=== PATIENT | female | born 1970 | race Caucasian/White ===

== ENCOUNTER → 2017-07-26 18:26 | Outpatient (CLI) | payer OTHER, SELFPAY ==
[2017-07-26 19:48] LABS: Erythrocyte Sedimentation Rate 26 mm/hr (0-20)
== END ==
PROVIDERS: PCP Nurse Practitioner Family; Visit Provider Nurse Practitioner Family
DX: E78.2 Mixed hyperlipidemia (principal); M25.50 Pain in unspecified joint; R53.83 Other fatigue
CPT/HCPCS: 36415; 82652; 85651

== ENCOUNTER → 2017-08-05 13:33 | Outpatient (CLI) | payer OTHER, SELFPAY ==
--- NOTE | 2017-08-05 13:37 | MR_ITS ---
MR lumbar spine wo con, MR 3-d myelogram/MRCP HISTORY: Low back pain. Intermittent Bilateral Leg pain, numbness, and tingling. ITS.REASON: LOW BACK PAIN ORDERING PHYSICIAN: Eleni Smyth PATIENT AGE: 47 years Comparison: None TECHNIQUE: Standard multiplanar multiecho sequences are performed without contrast. 3-D MIP and myelographic images are also rendered and reviewed FINDINGS: There is normal alignment. The spinal cord ends at the L1-L2 level. L1-L2 and L2-L3 have an unremarkable appearance. L3-L4: Mild decrease in the disc space and minimal disc desiccation indicating mild degenerative disc disease with mild facet hypertrophic change. L4-L5: Degenerative disc disease with bulging disc along with facet and ligamentum flavum hypertrophy with mild bilateral foraminal narrowing. Type II endplate changes. The bulging disc does abut the L5 nerve roots anteriorly without nerve root compression or displacement. L5-S1: Mild degenerative disc disease with minimal bulging disc and mild facet hypertrophy. No canal stenosis or disc herniation. IMPRESSION: 1. Mild lumbar spondylosis with degenerative disc disease as detailed above. Please see above for detailed description at each level. 2. Degenerative disc disease L4-L5 with bulging disc along with facet and ligamentum flavum hypertrophy with mild bilateral foraminal narrowing. Type II endplate changes. The bulging disc does abut the L5 nerve roots anteriorly without nerve root compression or displacement 3. No canal stenosis or disc herniation evident
== END ==
PROVIDERS: PCP Nurse Practitioner Family; Visit Provider Nurse Practitioner Family
DX: M54.16 Radiculopathy, lumbar region (principal); M54.31 Sciatica, right side
CPT/HCPCS: 72148; 76376

== ENCOUNTER → 2017-12-14 20:57 | Outpatient (CLI) | payer OTHER, SELFPAY ==
[2017-12-14 23:08] VITALS: BMI 36.6
== END ==
PROVIDERS: Visit Provider Obstetrics & Gynecology
DX: J32.8 Other chronic sinusitis (principal)
CPT/HCPCS: 96372

== ENCOUNTER → 2018-08-11 18:39 | Outpatient (CLI) | payer OTHER, SELFPAY ==
[2018-08-12 15:50] LABS: Hemoglobin A1C 5.3 % (0.0-7.0)
[2018-08-13 20:48] LABS: Vitamin D 25 Hydroxy 17.8 ng/mL (30.0-100.0)
== END ==
PROVIDERS: Nurse Practitioner Family; PCP Internal Medicine Adolescent Medicine; Visit Provider Nurse Practitioner Obstetrics & Gynecology
DX: E78.2 Mixed hyperlipidemia (principal); E55.9 Vitamin D deficiency, unspecified
CPT/HCPCS: 82652; 83036

== ENCOUNTER 2019-07-09 15:10 | Emergency (ER) | payer OTHER, SELFPAY ==
[2019-07-09 15:29] VITALS: BP 152/99; PULSE 85; RESP 19; TEMP 36.8; O2SAT 98; BMI 38.6
--- NOTE | 2019-07-09 15:45 | HMH.EDUTC ---
[facility] [place] Clinical Impression: UTI (urinary tract infection) Qualifiers: Urinary tract infection type: site unspecified Hematuria presence: with hematuria Qualified Code(s): N39.0 - Urinary tract infection, site not specified; R31.9 - Hematuria, unspecified Disposition: Home, Self-Care Condition on Discharge: Good Instructions: Urinary Tract Infection, DI for Urinary Tract Infection (UTI), Trimethoprim/Sulfamethoxazole (Alternative Therapy), Phenazopyridine Additional Instructions: *Increase fluids. Water not Soda or Tea *Start antibiotic immediately and be sure to take as ordered for the FULL length of time although you should start to see improvement over the next 48 hours Be SURE to follow up anytime for new or worsening symptoms with your family doctor. AND in 48 hours for urine culture results with your family doctor, if you do not have a doctor then you may call back to the [facility] for urine culture results and further treatment. We do recommend that you choose and establish care with a Primary Care Physician. AND follow up with them in 10-14 days to repeat UA to ensure infection is resolved and blood no longer present *Be sure to let your PCP know that we sent urine cultures from the [facility] so they can follow up to ensure that you area the on the correct antibiotic Call your doctor office and make appointment for 48 hours (2 days from today) to follow up and get the results of your urine culture and further treatment Follow up in the next 48 hours for urine culture results Return if needed Straight to ER if any life threatening symptoms Continue taking Bactrim as prescribed Prescriptions: Phenazopyridine HCl [Pyridium 200mg Tablet] 200 pow PO TID #6 tab Transmission Status: Pending to [facility] Pharmacy # [id number] Referrals: Jg Staples MD [Primary Care Provider] - As needed Medical Decision Making - Donnell Inquiry Pt receiving controlled substance: No Donnell was queried for this patient: No Vital Signs: 07/09/19 15:29 Temperature 98.2 F Temperature Source Oral Pulse Rate [Right Brachial] 85 Respiratory Rate 19 Blood Pressure [Right Arm] 152/99 H Blood Pressure Mean [Right Arm] 116 Blood Pressure Source [Right Arm] Automatic Cuff Blood Pressure Position [Right Arm] Sitting 02 Sat by Pulse Oximetry 98 Oxygen Delivery Method Room Air - Lab Data Lab results reviewed: Yes: I reviewed the patient's lab results. Orders (Tests/Meds): ORDERS Category Date Time Status Urine Culture Stat Micro 07/09/19 15:37 Ordered [facility] [place] - General Stated complaint: Posible UTI Time Seen by Provider: 07/09/19 15:30 Mode of Arrival: Ambulatory Source of Information: Patient Limitations: No Limitations Description of Symptoms (Recalled from Triage Doc. by RN): PT STATES SHE HAS HAD FREQUENT URINATION AND PAIN FOR THE LAST 3 DAYS AND STATES SHE HAS BEEN ON BACTRIM FOR 2 DAYS BUT IS NOT GETTING ANY BETTER HEENT Symptoms (Recalled from RN notes): No Resp Symptoms (Recalled from RN notes): No Skin Symptoms (Recalled from RN notes): No MS Symptoms (Recalled from RN notes): No Functional Status (Recalled from RN notes): WNL - History of Present Illness Provider Complaint: Patient states that she has had frequent UTI in the past States that she started feeling like she was getting a UTI on and was started on Bactrim States that today she is having more burning with urination and feeling of irritation and feeling of urgency and freqency States that she was worried it was getting worse so she came in to get checked - Related Data Previous Rx's Medication Instructions Recorded Phenazopyridine HCl [Pyridium 200 pow PO TID #6 tab 07/09/19 200mg Tablet] Allergies Allergy/AdvReac Type Severity Reaction Status Date / Time meperidine [From Demerol] Allergy Severe SEVERE Unverified 12/15/17 08:36 HIVES - Worker's Comp Is this a Worker's Comp case?: No [facility] History - Hepatitis A Screen
[2019-07-09 16:03] VITALS: BP 152/99; PULSE 85; RESP 19; TEMP 36.8; O2SAT 98
[2019-07-09 16:08] LABS: Apearance,Urine Clear (Clear); Blood, Urine 3+ (Negative); Color,Urine Yellow (Yellow); Glucose,Urine (UA) Negative (Negative); Ketones,Urine Negative (Negative); Protein,Urine 1+ (Negative)
[2019-07-09 16:09] LABS: Bilirubin,Urine Negative (Negative); UTC Leukocyte Esterase,Urine Trace (Negative); UTC Nitrate,Urine Negative (Negative); Urobilinogen,Urine 0.2 EU/dl (0.2)
== END 2019-07-09 16:06 | disposition home or self-care (01) ==
PROVIDERS: Emergency Provider Nurse Practitioner; PCP Internal Medicine Adolescent Medicine
DX: N30.00 Acute cystitis without hematuria (principal); F17.210 Nicotine dependence, cigarettes, uncomplicated
CPT/HCPCS: 81003; 87086; 90471; 96372; 99201; 99202

== ENCOUNTER → 2020-02-20 13:49 | Outpatient (CLI) | payer OTHER, SELFPAY ==
[2020-02-20 14:47] LABS: Coronavirus 19 IgG Antibody Negative (Negative); Coronavirus 19 IgM Antibody Negative (Negative)
== END ==
PROVIDERS: Visit Provider Nurse Practitioner Obstetrics & Gynecology
DX: Z03.818 Encounter for observation for suspected exposure to other biological agents ruled out (principal); Z01.84 Encounter for antibody response examination
CPT/HCPCS: 86328

== ENCOUNTER → 2020-05-08 15:02 | Outpatient (CLI) | payer OTHER, SELFPAY ==
--- NOTE | 2020-05-08 15:05 | MR_ITS ---
PROCEDURE: MR LUMBAR SPINE WO CON CLINICAL INDICATION: RADICULOPATHY, low back pain Lbp. Pain worse in rt leg and when squatting, standing, and walking for long periods. Bilateral leg numbness and pain. COMPARISON: MR SPLUMBWO MR lumbar spine wo con from 08/05/2017 TECHNIQUE: Standard multiplanar multiecho sequences are performed without contrast. 3-D MIP and myelographic images are also rendered and reviewed FINDINGS: There is normal alignment. The spinal cord ends at the L2 level. There is an area of decreased T1 and T2 signal in the left ilium medially and may be due to a bone island L1-L2: Unremarkable. L2-L3: Unremarkable. L3-L4: Minimal bulging disc with mild facet hypertrophic change and mild left lateral recess narrowing which appears slightly worse compared to the previous exam. L4-5: Degenerative disc disease with bulging disc and type 2 endplate changes. There is facet hypertrophic change with mild bilateral foraminal narrowing which appears slightly worse. L5-S1: Mild bulging disc with facet and ligamentum hypertrophy with mild bilateral foraminal narrowing IMPRESSION: 1. L3-L4: Minimal bulging disc with mild facet hypertrophic change and mild left lateral recess narrowing which appears slightly worse compared to the previous exam. 2. L4-5: Degenerative disc disease with bulging disc and type 2 endplate changes. There is facet hypertrophic change with mild bilateral foraminal narrowing which appears slightly worse. 3. L5-S1: Mild bulging disc with facet and ligamentum hypertrophy with mild bilateral foraminal narrowing 4. No extruded herniated disc or canal stenosis Dictated by: Lui Chatterjee MD 05/09/2020 13:09 Lui Chatterjee MD in [place] 05/09/2020 13:09
--- NOTE | 2020-05-08 15:05 | MR_ITS ---
PROCEDURE: MR CERVICAL SPINE WO CON CLINICAL INDICATION: RADICULOPATHY, CERVICAL DISC DISORDER Neck pain xyrs. Unable to turn head. Headache. Bilateral arm numbness and tingling worse in rt arm. COMPARISON: No exams were available for comparison TECHNIQUE: Standard multiplanar multiecho sequences are performed without contrast. 3-D MIP and myelographic images are also rendered and reviewed FINDINGS: There is reversal of the cervical lordosis. Unremarkable craniocervical junction. There is a partial empty sella present as a normal variant. C2-C3: Unremarkable. C3-C4: There is a small central/right paracentral disc protrusion/herniation. This is impinging upon the anterior right aspect of the cord causing some mild cord flattening. There is canal stenosis at this level secondary to the disc protrusion with canal measuring 7 mm centrally C4-C5: Minimal bulging disc slightly eccentric toward the left with canal stenosis of 7 mm. There is some minimal flattening of the cord anteriorly. C5-C6: Degenerative disc disease with bulging disc and endplate osteophytes with severe canal stenosis of 6 mm. There is kyphosis at this level with flattening of the cord and mild bilateral foraminal narrowing. C6-C7: Degenerative disc disease with a small broad-based left paracentral disc protrusion with severe canal stenosis of 7 mm with moderate flattening of the cord centrally and on the left with left lateral recess and foraminal narrowing C7-T1: Mild degenerative disc disease with bulging disc with minimal central and left paracentral disc protrusions with canal stenosis of 9 mm and mild bilateral lateral recess and foraminal narrowing. IMPRESSION: Abnormal MRI of the cervical spine. Multilevel abnormalities are present including degenerative disc disease with protruding/herniated discs and disc osteophyte complexes with canal stenosis lateral recess and foraminal narrowing with cord impingement. Please see above for detailed description at each level. Dictated by: Lui Chatterjee MD 05/09/2020 12:56 Lui Chatterjee MD in [place] 05/09/2020 12:56
== END ==
PROVIDERS: PCP Nurse Practitioner Family; Visit Provider Nurse Practitioner Family
DX: M50.10 Cervical disc disorder with radiculopathy, unspecified cervical region (principal); M54.18 Radiculopathy, sacral and sacrococcygeal region
CPT/HCPCS: 72141; 72148; 76376

== ENCOUNTER → 2021-10-29 07:49 | Outpatient (CLI) | payer OTHER, SELFPAY ==
--- NOTE | 2021-10-29 07:55 | US_ITS ---
FINAL REPORT CLINICAL HISTORY: RUQ PAIN FINDINGS: ULTRASOUND RIGHT UPPER QUADRANT Sonographic imaging of the right upper quadrant was obtained. The pancreas is partially obscured. The liver is fatty infiltrated. There is trace sludge in the gallbladder. There is no gallbladder wall thickening. There is no biliary ductal dilatation. The common duct is normal at 3 mm. Limited images of the right kidney are unremarkable. IMPRESSION: Fatty liver. Trace sludge in the gallbladder. Reviewed, Interpreted and Dictated by Brat Kaba MD Transcribed by Nell Oneill Authenticated and . [facility]
== END ==
PROVIDERS: PCP Internal Medicine Adolescent Medicine; Visit Provider Surgery
DX: R10.11 Right upper quadrant pain (principal)
CPT/HCPCS: 76705

== ENCOUNTER → 2021-12-13 12:31 | Outpatient (CLI) | payer OTHER, SELFPAY ==
[2021-12-14 09:17] LABS: FSH 32.8 mIU/mL (.)
[2021-12-20 19:09] LABS: Testosterone, Total, LC/MS 15 ng/dL (.)
== END ==
PROVIDERS: PCP Internal Medicine Adolescent Medicine; Visit Provider Specialist
DX: N95.1 Menopausal and female climacteric states (principal); N91.2 Amenorrhea, unspecified
CPT/HCPCS: 36415; 82670; 83001; 83002; 84403

== ENCOUNTER → 2022-03-31 05:57 | Outpatient (CLI) | payer OTHER, SELFPAY | PROVIDERS: PCP Family Medicine; Visit Provider Family Medicine | DX: U07.1 COVID-19 (principal); R05.9 Cough, unspecified | CPT/HCPCS: C9803; U0003; U0005 ==

== ENCOUNTER → 2022-05-22 07:03 | Outpatient (CLI) | payer OTHER, SELFPAY ==
[2022-05-22 09:10] LABS: Basophils # 0.1 K/mm3 (0-0.2); Basophils % 1.1 % (0.1-2.0); Eosinophils # 0.4 K/mm3 (0.0-0.4); Hematocrit 43.9 % (37.0-47.0); Hemoglobin 14.2 g/dL (12.2-16.2); Lymphocytes # 2.5 K/mm3 (0.7-4.5); Lymphocytes % 28.5 % (10-50); Mean Corpuscular HGB Conc 32.4 g/dL (31.8-35.4); Mean Corpuscular Hemoglobin 29.7 pg (27.0-31.2); Mean Corpuscular Volume 91.7 fl (81-99); Mean Platelet Volume 9.7 fl (7.4-10.4); Monocytes # 0.5 K/mm3 (0.1-1.0); Monocytes % 5.2 % (1.7-9.3); Neutrophils # 5.3 K/mm3 (1.8-7.8); Neutrophils % 61.3 % (37.0-80.0); Platelet Count 306 K/mm3 (142-424); Red Blood Count 4.79 M/mm3 (4.20-5.40); Red Cell Distribution Width 13.7 % (11.5-17.5); White Blood Count 8.7 K/mm3 (4.8-10.8)
[2022-05-22 09:15] LABS: Alanine Aminotransferase 30 U/L (12-78); Albumin Level 4.6 g/dl (3.5-5.0); Albumin/Globulin Ratio 1.6 (1.1-1.8); Alkaline Phosphatase 142 U/L (38-126); Anion Gap 10.9 mEq/L (5-15); Aspartate Amino Transferase 31 U/L (14-36); Bilirubin,Total 0.6 mg/dl (0.2-1.3); Blood Urea Nitrogen 32 mg/dl (7-17); Calcium 9.4 mg/dl (8.4-10.2); Carbon Dioxide 30 mmol/L (22.0-30.0); Chloride 102 mmol/L (98-107); Estimated Glomerular Filt Rate 88 ml/min (>60); GFR (African American) 106 ML/MIN (>60); Globulin 2.9 g/dL (1.3-3.2); Glucose 108 mg/dl (74-100); Potassium 3.9 mmoL/L (3.5-5.1); Sodium 139 mmol/L (136-145); Total Protein,Serum 7.5 g/dl (6.3-8.2)
[2022-05-22 09:40] LABS: Hemoglobin A1C 5.9 % (4.0-6.0)
[2022-05-22 09:45] LABS: Thyroid Stimulating Hormone 3.47 uIU/mL (0.465-4.68)
== END ==
PROVIDERS: PCP Nurse Practitioner Family; Visit Provider Nurse Practitioner Family
DX: R53.83 Other fatigue (principal); R73.9 Hyperglycemia, unspecified
CPT/HCPCS: 80053; 83036; 84443; 85025

== ENCOUNTER → 2022-07-23 11:55 | Outpatient (CLI) | payer OTHER, SELFPAY | PROVIDERS: PCP Internal Medicine Adolescent Medicine; Visit Provider Internal Medicine Adolescent Medicine | DX: R19.7 Diarrhea, unspecified (principal) ==

== ENCOUNTER → 2022-07-24 07:55 | Outpatient (CLI) | payer OTHER, SELFPAY ==
[2022-07-24 08:15] LABS: Adenovirus F 40/41, stool Not Detected (NotDetected); Astrovirus Not Detected (NotDetected); Campylobacter Not Detected (NotDetected); Clostridium Difficile A/B, PCR Not Detected (NotDetected); Cryptosporidium Not Detected (NotDetected); Cyclospora Cayetanesis Not Detected (NotDetected); Entamoeba histolytica Not Detected (NotDetected); Enteroaggregative E coli Not Detected (NotDetected); Enteropathogenic E coli Not Detected (NotDetected); Enterotoxigenic E coli Not Detected (NotDetected); Giardia lamblia Not Detected (NotDetected); Norovirus Not Detected (NotDetected); Plesimonas Shigalloides, PCR Not Detected (NotDetected); Rotavirus A Not Detected (NotDetected); Salmonella, PCR Not Detected (NotDetected); Sapovirus Not Detected (NotDetected); Shiga-like toxin E coli Not Detected (NotDetected); Shigella Enterovasive E coli Not Detected (NotDetected); Vibrio Cholerae Not Detected (NotDetected); Vibrio, PCR Not Detected (NotDetected); Yersinia Entercolitica, PCR Not Detected (NotDetected)
== END ==
PROVIDERS: PCP Internal Medicine Adolescent Medicine; Visit Provider Internal Medicine Adolescent Medicine
DX: R19.7 Diarrhea, unspecified (principal)
CPT/HCPCS: 87506

== ENCOUNTER → 2022-07-31 16:19 | Outpatient (CLI) | payer OTHER, SELFPAY ==
--- NOTE | 2022-07-31 | MR_ITS ---
PROCEDURE INFORMATION: Exam: MR Lumbar Spine Without Contrast Exam date and time: 07/31/2022 5:03 PM Age: 52 years old Clinical indication: Low back pain; Additional info: Lower back pain. Injury in 2003 TECHNIQUE: Imaging protocol: Magnetic resonance imaging of the lumbar spine without contrast. COMPARISON: MR LUMBAR SPINE WO CON 05/08/2020 3:31 PM FINDINGS: Bones/joints: There is preservation of vertebral alignment.There is preservation of vertebral body heights. Discogenic changes at L4-L5 level.No marrow replacing process. Spinal cord: Conus medullaris and cauda equina nerve roots are unremarkable L1-L2: No significant disc bulge or herniation. No severe spinal canal stenosis. No significant neural foraminal narrowing. L2-L3: No significant disc bulge or herniation. No severe spinal canal stenosis. No significant neural foraminal narrowing. L3-L4: Diffuse disc bulge and facet arthropathy noted. No significant spinal canal stenosis. There is no significant neural foraminal narrowing. L4-L5: Diffuse disc bulge and facet arthropathy noted No significant spinal canal stenosis. There is mild bilateral neural foraminal narrowing. L5-S1: Diffuse disc bulge and facet arthropathy noted No significant spinal canal stenosis. There is mild bilateral neural foraminal narrowing. Soft tissues: Unremarkable. Kidneys and ureters: Bilateral renal subcentimeter T2 hyperintense structures are too small to accurately characterize. IMPRESSION: Multilevel degenerative changes without significant spinal canal or neural foraminal narrowing at any level.
--- NOTE | 2022-07-31 | MR_ITS ---
PROCEDURE INFORMATION: Exam: MR Cervical Spine Without Contrast Exam date and time: 07/31/2022 5:03 PM Age: 52 years old Clinical indication: Neck pain TECHNIQUE: Imaging protocol: Magnetic resonance imaging of the cervical spine without contrast. COMPARISON: MR CERVICAL SPINE WO CON 05/08/2020 3:31 PM FINDINGS: Bones/joints: Straightening of the cervical lordosis which can be attributed to muscle spasm/contracture.Vertebral alignment is otherwise maintained. There is preservation of vertebral body heights. Spinal cord: Spinal cord is normal in signal characteristics. C2-C3: No significant disc bulge or herniation. No severe spinal canal stenosis. No significant neural foraminal narrowing. C3-C4: Central disc protrusion contributes to mild spinal canal stenosis. There is no significant neural foraminal narrowing. C4-C5: Central disc protrusion contributes to mild spinal canal stenosis. There is no significant neural foraminal narrowing. C5-C6: Central disc protrusion contributes [id number] spinal canal stenosis. Uncovertebral and facet arthropathy produce moderate bilateral neural foraminal narrowing. C6-C7: Central disc protrusion contributes to [id number] spinal canal stenosis. Uncovertebral and facet arthropathy produce mild bilateral neural foraminal narrowing. C7-T1: Left paracentral disc protrusion contributes to mild left spinal canal stenosis. Uncovertebral and facet arthropathy produce mild bilateral neural foraminal narrowing. Soft tissues: Unremarkable Vasculature: Expected flow voids in the vertebral arteries. IMPRESSION: Multilevel degenerative changes more pronounced at C5-C6 and C6-C7 where there is [id number] spinal canal stenosis.
== END ==
PROVIDERS: PCP Internal Medicine Adolescent Medicine; Visit Provider Nurse Practitioner Family
DX: M50.30 Other cervical disc degeneration, unspecified cervical region (principal); M51.17 Intervertebral disc disorders with radiculopathy, lumbosacral region
CPT/HCPCS: 72141; 72148; 76376

== ENCOUNTER → 2023-02-04 11:06 | Outpatient (CLI) | payer OTHER, SELFPAY ==
[2023-02-04 11:22] LABS: Basophils # 0.1 K/mm3 (0-0.2); Basophils % 0.7 % (0.1-2.0); Eosinophils # 0.5 K/mm3 (0.0-0.4); Eosinophils % 5.2 % (0.1-12.0); Hematocrit 43.4 % (37.0-47.0); Hemoglobin 14.3 g/dL (12.2-16.2); Lymphocytes # 2.6 K/mm3 (0.7-4.5); Lymphocytes % 27.9 % (10-50); Mean Corpuscular Hemoglobin 30.2 pg (27.0-31.2); Mean Corpuscular Volume 91.6 fl (81-99); Mean Platelet Volume 12.2 fl (7.4-10.4); Monocytes # 0.5 K/mm3 (0.1-1.0); Monocytes % 5.3 % (1.7-9.3); Neutrophils # 5.7 K/mm3 (1.8-7.8); Neutrophils % 60.8 % (37.0-80.0); Platelet Count 241 K/mm3 (142-424); Red Blood Count 4.73 M/mm3 (4.20-5.40); Red Cell Distribution Width 14.1 % (11.5-17.5); White Blood Count 9.4 K/mm3 (4.8-10.8)
[2023-02-04 11:31] LABS: Alanine Aminotransferase 27 U/L (12-78); Albumin Level 4.2 g/dl (3.5-5.0); Albumin/Globulin Ratio 1.8 (1.1-1.8); Alkaline Phosphatase 141 U/L (38-126); Anion Gap 11.8 mEq/L (5-15); Aspartate Amino Transferase 28 U/L (14-36); Bilirubin,Total 0.5 mg/dl (0.2-1.3); Blood Urea Nitrogen 21 mg/dl (7-17); Calcium 8.8 mg/dl (8.4-10.2); Carbon Dioxide 29 mmol/L (22.0-30.0); Chloride 99 mmol/L (98-107); Chol/HDL Ratio 2.1 (1-3.5); Cholesterol 159 mg/dl (140-200); Estimated Glomerular Filt Rate 65 ml/min (>60); GFR (African American) 79 ML/MIN (>60); Globulin 2.4 g/dL (1.3-3.2); Glucose 90 mg/dl (74-100); HDL Cholesterol 76 mg/dl (40-60); Potassium 3.8 mmoL/L (3.5-5.1); Sodium 136 mmol/L (136-145); Total Protein,Serum 6.6 g/dl (6.3-8.2); Triglycerides 99 mg/dl (30-150); VLDL Cholesterol 20 mg/dL (0-40)
[2023-02-04 11:43] LABS: Direct LDL Cholesterol 66.05 mg/dL (100-129)
[2023-02-04 12:03] LABS: Thyroid Stimulating Hormone 3.84 uIU/mL (0.465-4.68)
[2023-02-04 13:10] LABS: Hemoglobin A1C 5.9 % (4.0-6.0)
== END ==
PROVIDERS: PCP Internal Medicine Adolescent Medicine; Visit Provider Nurse Practitioner Family
DX: Z00.00 Encounter for general adult medical examination without abnormal findings (principal); E55.9 Vitamin D deficiency, unspecified; R53.83 Other fatigue; R73.03 Prediabetes; Z68.42 Body mass index [BMI] 45.0-49.9, adult
CPT/HCPCS: 80053; 80061; 82306; 83036; 84443; 85025

== ENCOUNTER 2023-07-13 15:37 | Outpatient (CLI) | payer OTHER, SELFPAY ==
--- NOTE | 2023-07-13 | XR_ITS ---
FINAL REPORT CLINICAL HISTORY: mid back pain x 6 months COMPARISON: None FINDINGS: AP, lateral, and swimmer's views of the thoracic spine were obtained. There is no prior exam for comparison. There is no acute fracture or malalignment. Vertebral body height is preserved. Moderate degenerative change is noted along with multilevel osteophytes. Paraspinal soft tissues are within normal limits. IMPRESSION: Moderate degenerative change as described above. Reviewed, Interpreted and Dictated by Rodriguez Swann III, MD Transcribed by Leatha Hallman Authenticated and [facility]
--- NOTE | 2023-07-13 | XR_ITS ---
FINAL REPORT CLINICAL HISTORY: MID BACK PAIN ON RIGHT SIDE RUQ PAIN x 6 months COMPARISON: None FINDINGS: A single view of the chest with 4 views of the ribs were obtained. There is no acute cardiopulmonary process. No pneumothorax is identified. No displaced rib fracture identified. IMPRESSION: Unremarkable right rib series Reviewed, Interpreted and Dictated by Rodriguez Swann III, MD Transcribed by Leatha Hallman Authenticated and [facility]
== END 2023-07-13 23:59 | disposition home or self-care (01) ==
LOC: RAD 15:39
PROVIDERS: PCP Internal Medicine Adolescent Medicine; Visit Provider Nurse Practitioner Family
DX: M54.9 Dorsalgia, unspecified (principal); R10.11 Right upper quadrant pain
CPT/HCPCS: 71101; 72072

== ENCOUNTER 2023-07-16 12:05 | Outpatient (CLI) | payer OTHER, SELFPAY ==
--- NOTE | 2023-07-16 12:10 | US_ITS ---
FINAL REPORT CLINICAL HISTORY: RUQ PAIN FINDINGS: RIGHT UPPER QUADRANT ULTRASOUND Sonographic images of the right upper quadrant were obtained. The pancreas is partially obscured.The liver has an unremarkable appearance. The gallbladder is absent. The common duct measures 4 mm. Limited images of the right kidney are normal. Additional images were obtained of the right back. No mass or fluid collection is identified. IMPRESSION: Status post cholecystectomy, otherwise unremarkable. Reviewed, Interpreted and Dictated by Rodriguez Swann III, MD Transcribed by Elvie Campuzano Authenticated and [facility]
== END 2023-07-16 23:59 | disposition home or self-care (01) ==
LOC: RAD 12:05
PROVIDERS: PCP Internal Medicine Adolescent Medicine; Visit Provider Nurse Practitioner Family
DX: R10.11 Right upper quadrant pain (principal)
CPT/HCPCS: 76705

== ENCOUNTER 2023-07-28 18:19 | Outpatient (CLI) | payer OTHER, SELFPAY ==
--- NOTE | 2023-07-28 18:23 | MR_ITS ---
PROCEDURE INFORMATION: Exam: MR Cervical Spine Without Contrast Exam date and time: 07/28/2023 6:13 PM Age: 53 years old Clinical indication: Pain; Cervicalgia; Additional info: Pain, cervicalgia TECHNIQUE: Imaging protocol: Magnetic resonance imaging of the cervical spine without contrast. COMPARISON: MR CERVICAL SPINE WO CON 07/31/2022 5:03 PM FINDINGS: Bones/joints: Straightening of normal cervical lordosis. This can indicate muscle spasm, or be voluntary positioning. No appreciable progression and moderate cervical spondylosis as detailed above. There is no new disc herniation. No progression and moderate to severe central canal stenosis C5-C6 without flattening of the cord. Spinal cord: Normal signal. No cord compression. C2-C3: No significant disc bulge or herniation. No severe spinal canal stenosis. No significant neural foraminal narrowing. C3-C4: Interval decrease in previous small posterior central protrusion. No significant stenosis. C4-C5: No significant protrusion or extrusion of disc at this time. No significant stenosis. C5-C6: Partially desiccated disc again evident with mild bulge of the remainder. Marginal osteophytes and limited facet arthropathy. No significant progression in moderate to severe central canal stenosis eccentric to the left and severe primarily osteophytic narrowing of the left neural foramen. C6-C7: Shallow left posterior central disc protrusion again evident. Limited marginal osteophytes. Moderate narrowing of the central canal eccentric to the left and moderate narrowing of the left neural foramen again evident. C7-T1: Marginal osteophytes and mild bulge of the disc with mild central canal stenosis again evident. Soft tissues: See Bones/joints finding. Vasculature: Expected flow voids in the vertebral arteries. IMPRESSION: 1. Straightening of normal cervical lordosis. This can indicate muscle spasm, or be voluntary positioning. 2. No appreciable progression in the moderate cervical spondylosis as detailed above. There is no new disc herniation. No progression in the moderate to severe central canal stenosis C5-C6 without flattening of the cord.
--- NOTE | 2023-07-28 18:24 | MR_ITS ---
PROCEDURE INFORMATION: Exam: MR Thoracic Spine Without Contrast Exam date and time: 07/28/2023 6:13 PM Age: 53 years old Clinical indication: Pain in thoracic spine TECHNIQUE: Imaging protocol: Magnetic resonance imaging of the thoracic spine without contrast. COMPARISON: CR XR THORACIC SPINE 3V 07/13/2023 3:56 PM FINDINGS: Bones/joints: Unremarkable. No fracture. Normal alignment. No significant disc bulge or herniation. No severe spinal canal stenosis. No significant neural foraminal narrowing. Spinal cord: Normal signal. No cord compression. Soft tissues: Unremarkable. Other findings: Unremarkable MRI thoracic spine. IMPRESSION: Unremarkable MRI thoracic spine.
== END 2023-07-28 23:59 | disposition home or self-care (01) ==
LOC: RAD 18:19
PROVIDERS: PCP Internal Medicine Adolescent Medicine; Visit Provider Nurse Practitioner Family
DX: M54.2 Cervicalgia (principal); M54.6 Pain in thoracic spine
CPT/HCPCS: 72141; 72146

== ENCOUNTER 2023-07-30 08:58 | Outpatient (CLI) | payer OTHER, SELFPAY ==
--- NOTE | 2023-07-30 09:17 | XR_ITS ---
FINAL REPORT CLINICAL HISTORY: SCREENING COMPARISON: None FINDINGS: Using L1-4, the bone mineral density of the spine is 1.278 g/cm2, corresponding to T-score of 2.1, within normal limits. Using the left hip, the bone mineral density of the femoral neck is 1.056 g/cm2, corresponding to a T-score of 0.9, within normal limits. Using the right hip, the bone mineral density of the femoral neck is 0.819 g/cm2, corresponding to a T-score of -0.3, within normal limits. FRAX not reported because all T-scores at or above -1.0. NOTE: T-score: Standard deviation compared with peak bone mass of young adult mean. *Following the recommendations of the International Society of Bone densitometry, classification of hip BMD is based on the lower of two T-scores; total hip or femoral neck. IMPRESSION: Normal bone mineral density of the lumbar spine and hips. Reviewed, Interpreted and Dictated by Bart Kaba MD Transcribed by Melinda Cantor Authenticated and . [facility]
== END 2023-07-30 23:59 | disposition home or self-care (01) ==
LOC: RAD 08:58
PROVIDERS: PCP Internal Medicine Adolescent Medicine; Visit Provider Specialist
DX: Z78.0 Asymptomatic menopausal state (principal); Z13.820 Encounter for screening for osteoporosis
CPT/HCPCS: 77080

== ENCOUNTER 2023-08-21 06:21 | Outpatient (CLI) | payer OTHER, SELFPAY ==
--- NOTE | 2023-08-21 06:26 | CT_ITS ---
FINAL REPORT TECHNIQUE: Axial CT images were performed from the lung apices through the upper abdomen. Coronal and sagittal reformats were submitted. This study was performed with techniques to keep radiation doses as low as reasonably achievable (ALARA). Individualized dose reduction techniques using automated exposure control or adjustment of mA and/or kV according to the patient's size were employed. CLINICAL HISTORY: RIDE SIDED CHEST WALL PAIN INTO BACK COMPARISON: None FINDINGS: There is no axillary adenopathy. There is no hilar or mediastinal mass or adenopathy. Heart size is normal. There is no pericardial or pleural effusion. Mild and moderate thoracic degenerative change is noted. Limited images of the upper abdomen are unremarkable. No suspicious infiltrate or nodule is identified on lung window images. IMPRESSION: No acute process. Mild and moderate thoracic degenerative changes noted. Reviewed, Interpreted and Dictated by Rodriguez Swann III, MD Transcribed by Leatha Hallman Authenticated and [facility]
== END 2023-08-21 23:59 | disposition home or self-care (01) ==
LOC: RAD 06:21
PROVIDERS: PCP Internal Medicine Adolescent Medicine; Visit Provider Internal Medicine Adolescent Medicine
DX: R07.89 Other chest pain (principal)
CPT/HCPCS: 71250

== ENCOUNTER 2023-10-24 11:48 | Emergency (ER) | payer OTHER, SELFPAY ==
--- NOTE | 2023-10-24 11:55 | XR_ITS ---
PROCEDURE INFORMATION: Exam: XR Left Tibia and Fibula Exam date and time: 10/24/2023 12:12 PM Age: 53 years old Clinical indication: Pain; Lower leg; Left; Additional info: Pain- fall TECHNIQUE: Imaging protocol: Radiologic exam of the left tibia and fibula. Views: 2 views. COMPARISON: CR XR KNEE LT 3V 10/24/2023 12:11 PM FINDINGS: Bones/joints: No acute fracture. Small posterior and plantar calcaneal enthesophytes. Soft tissues: Normal. IMPRESSION: No acute findings.
--- NOTE | 2023-10-24 11:56 | XR_ITS ---
PROCEDURE INFORMATION: Exam: XR Left Knee Exam date and time: 10/24/2023 12:11 PM Age: 53 years old Clinical indication: Pain; Knee; Left; Additional info: Pain- fall TECHNIQUE: Imaging protocol: Radiologic exam of the left knee. Views: 3 views. COMPARISON: No relevant prior studies available. FINDINGS: Bones/joints: No acute fracture. Mild medial femorotibial degenerative joint disease. Soft tissues: Normal. IMPRESSION: No acute findings.
[2023-10-24 12:40] VITALS: BP 137/61; PULSE 73; RESP 19; TEMP 36.9; O2SAT 97; BMI 43.4
--- NOTE | 2023-10-24 12:59 | ED_ITS ---
Discharge Plan Disposition Patient Disposition: Home, Self-Care Condition: Good Prescriptions Prescriptions: No Action hydrochlorothiazide 25 mg tablet 25 mg PO BID propranolol 20 mg tablet 20 mg PO BID omeprazole 20 mg capsule,delayed release(DR/EC) 20 mg PO DAILY bupropion HCl [Wellbutrin XL] 300 mg tablet extended release 24 hr 300 mg PO DAILY aspirin 81 mg tablet,delayed release (DR/EC) 81 mg PO DAILY atorvastatin [Lipitor] 40 mg tablet 40 mg PO DAILY Zyrtec 10 mg capsule 10 mg PO DAILY PRN hydrocodone-acetaminophen 7.5-325 mg tablet 1 tab PO BID PRN gabapentin 600 mg tablet 600 mg PO TID ibuprofen 800 mg tablet 800 mg PO TID PRN acetaminophen [Tylenol Extra Strength] 500 mg tablet 500 mg PO Q6H PRN codeine-guaifenesin 10-100 mg/5 mL liquid 10 ml PO Q4-6H PRN (Reason: cough) Qty: 120 1RF Referrals Follow up/Referrals: Roman Barker MD [Primary Care Provider] - See instructions Activity Restrictions/Add. Instructions Additional Instructions/Restrictions: Weight bearing as tolerated rest Ice with cold pack for 20 minutes remove may repeat for comfort every hour Elevate with leg above your heart as much as possible to help reduce swelling and therefore pain Ibuprofen every 6 hours as needed for pain or inflammation. If needs something more you can take Tylenol every 4 hours as needed as long as her primary care has told he was okayed for you to take both. If improving any do not need to follow-up you can bring begin exercising 2-3 weeks after injury. Follow-up immediately if new or worsening symptoms or no noticeable improvement over the next 3-5 days. call ortho Clinical Impressions Clinical Impression: Muscle strain Instructions Patient Instructions: DI for Calf Muscle Strain Print Language Print Language: [place] Discharge ED Provider: Marija ([facility]abil[facility] [place] General Stated complaint: AO fall 10/23 left leg pain Mode of Arrival: Ambulatory Source of Information: Patient Limitations: No Limitations Time Seen by Provider: 10/24/23 12:59 Description of Symptoms (Recalled from Triage Doc. by RN): PATIENT C/O PAIN TO LEFT KNEE AND LOWER LEG AFTER FALLING THIS MORNING HEENT Symptoms (Recalled from RN notes): No Resp Symptoms (Recalled from RN notes): No Skin Symptoms (Recalled from RN notes): No MS Symptoms (Recalled from RN notes): Yes Functional Status (Recalled from RN notes): WNL History of Present Illness Provider Complaint: 53 yr old female presents for left knee and leg pain. pt states this am she fell and twisted her left leg and fell on knee. pt states pain is in the back of her knee Related Data Home Medications ?Medication ?Instructions ?Recorded ?Confirmed acetaminophen 500 mg tablet 500 mg PO Q6H PRN 03/31/22 03/31/22 (Tylenol Extra Strength) aspirin 81 mg tablet,delayed 81 mg PO DAILY 03/31/22 03/31/22 release atorvastatin 40 mg tablet (Lipitor) 40 mg PO DAILY 03/31/22 03/31/22 bupropion HCl 300 mg 24 hr tablet, 300 mg PO DAILY 03/31/22 03/31/22 extended release (Wellbutrin XL) cetirizine 10 mg capsule (Zyrtec) 10 mg PO DAILY PRN 03/31/22 03/31/22 gabapentin 600 mg tablet 600 mg PO TID 03/31/22 03/31/22 hydrochlorothiazide 25 mg tablet 25 mg PO BID 03/31/22 03/31/22 hydrocodone 7.5 mg-acetaminophen 1 tab PO BID PRN 03/31/22 03/31/22 325 mg tablet ibuprofen 800 mg tablet 800 mg PO TID PRN 03/31/22 03/31/22 omeprazole 20 mg capsule,delayed 20 mg PO DAILY 03/31/22 03/31/22 release propranolol 20 mg tablet 20 mg PO BID 03/31/22 03/31/22 Previous Rx's ?Medication ?Instructions ?Recorded codeine 10 mg-guaifenesin 100 mg/5 10 ml PO Q4-6H PRN cough #120 mL 03/31/22 mL oral liquid Allergies Allergy/AdvReac Type Severity Reaction Status Date / Time meperidine [From Demerol] Allergy Severe SEVERE Verified 03/31/22 14:11 HIVES Worker's Comp Is this a Worker's Comp case?: No [facility] Disclaimer: The information contained in this section may have been updated after the patient was seen, as this information can be updated by other users. Medical History , [employer]) Hyperlipidemia Occasional tremors Hypertension Chronic back pain Surgical History , [employer]) History of cholecystectomy Family History , [employer]) Diabetes Grandmother Coronary artery disease Grandfather Heart attack Grandfather Cancer Grandfather Hypertension Mother Asthma Mother Social History , [employer]) Smoking Status: Current every day smoker tobacco type: cigarettes packs per day: 1 alcohol intake: never current occupational status: employed Travel in the last 8 weeks: None household members: spouse housing: house ROS Obtained: Yes All systems reviewed & no additional complaints except as documented Constitutional Constitutional: Reports system reviewed and no additional complaints, except as documented Eyes Eyes: Reports system reviewed and no additional complaints, except as documented ENT Ears, Nose, Mouth, and Throat: Reports system reviewed and no additional complaints, except as documented Cardiovascular Cardiovascular: Reports system reviewed and no additional complaints, except as documented Respiratory Respiratory: Reports system reviewed and no additional complaints, except as documented Gastrointestinal Gastrointestingal: Reports system reviewed and no additional complaints, except as documented Musculoskeletal Musculoskeletal: Reports system reviewed and no additional complaints, except as documented, Reports as per HPI, Reports arthralgias, Reports limited range of motion, Reports radiating pain into limb and Reports other Integumentary/Breasts Skin/Breast: Reports system reviewed and no additional complaints, except as documented Neurologic Neurologic: Reports system reviewed and no additional complaints, except as documented Endocrine Endocrine: Reports system reviewed and no additional complaints, except as documented Allergic/Immunologic Allergic/Immunologic: Reports system reviewed and no additional complaints, except as documented Physical Exam General General appearance: alert and in no apparent distress Eye Eye exam: Present normal appearance and PERRL ENT ENT exam: Present normal exam Neck Neck exam: Present normal inspection and full ROM Respiratory Respiratory exam: Present normal lung sounds bilaterally Cardiovascular Cardiovascular exam: Present regular rate and normal rhythm Extremities Exam Extremities exam: Present normal inspection, tenderness and normal capillary refill Expanded Lower Extremity Exam Left: Leg image: 2 1. tender Knee exam: Present normal inspection and tenderness; Absent swelling, erythema, anterior drawer sign, posterior draw sign, pain with valgus, laxity with valgus, pain with varus, laxity with varus or knee extension intact Neurological Exam Neurological exam: Present alert and oriented X3 Skin Skin exam: Present warm and intact Medical Decision Making Medical Records Medical records reviewed: Yes I reviewed the patient's medical records. Donnell Inquiry Pt receiving controlled substance: No Donnell was queried for this patient: No Vital Signs: 10/24/23 12:40 Temperature 98.4 F Temperature Source Oral Pulse Rate [Left Brachial] 73 Respiratory Rate 19 Blood Pressure [Left Arm] 137/61 Blood Pressure Mean [Left Arm] 86 Blood Pressure Source [Left Arm] Automatic Cuff Blood Pressure Position [Left Arm] Sitting 02 Sat by Pulse Oximetry 97 Oxygen Delivery Method Room Air Orders (Tests/Meds): ORDERS Category Date Time Status Knee XR left 3 views [XR knee LT 3V] Stat Exams 10/24/23 11:56 Taken Tibia/fibula XR left 2 views [XR tibia fibula LT 2V] Exams 10/24/23 11:55 Taken Stat Radiology Data #1: Image(s): Knee Image Reviewed: Yes I reviewed the patient's radiology image Preliminary Findings: Normal/NAD
[2023-10-24 13:16] VITALS: BP 137/61; PULSE 73; RESP 19; TEMP 36.9; O2SAT 97
== END 2023-10-24 13:19 | disposition home or self-care (01) ==
PROVIDERS: Emergency Provider Nurse Practitioner Family; PCP Internal Medicine Adolescent Medicine
DX: S86.912A Strain of unspecified muscle(s) and tendon(s) at lower leg level, left leg, initial encounter (principal); M25.562 Pain in left knee; M79.662 Pain in left lower leg; X50.1XXA Overexertion from prolonged static or awkward postures, initial encounter
CPT/HCPCS: 73562; 73590; 99203; 99212; G0463

== ENCOUNTER 2023-11-04 16:04 | Outpatient (CLI) | payer OTHER, SELFPAY ==
--- NOTE | 2023-11-04 16:04 | MR_ITS ---
PROCEDURE INFORMATION: Exam: MR Left Lower Extremity Joint Without Contrast, Knee Exam date and time: 11/04/2023 4:09 PM Age: 53 years old Clinical indication: Pain; Knee; Left; Additional info: Fell and has effusion and possible pcl injury TECHNIQUE: Imaging protocol: Magnetic resonance imaging of the left lower extremity joint without contrast. Exam focused on the knee. COMPARISON: CR XR KNEE LT 3V 10/24/2023 12:11 PM FINDINGS: Bones/joints: No bone contusion fracture is identified. There is slight lateral translocation of the patella. Patellofemoral chondropathy is noted. The patellar retinacula are intact. There is a small suprapatellar joint effusion. Periarticular edema is seen at the knee. Bursae: A small Gill's cyst is noted. Medial meniscus: No medial meniscal tear is seen. A somewhat prominent transverse meniscal ligament is incidentally noted. Lateral meniscus: The lateral meniscus is intact. Anterior cruciate ligament: The anterior cruciate ligament is intact. Posterior cruciate ligament: The posterior cruciate ligament is intact. Medial capsule and supporting structures: The medial collateral ligament is intact. Lateral capsule and supporting structures: The lateral collateral ligament is intact. The iliotibial band is intact. The biceps femoris tendon is intact. The popliteus tendon is intact. Extensor mechanism of knee: The quadriceps tendon is intact. The patellar tendon is intact. Soft tissues: Unremarkable. IMPRESSION: 1. No meniscal tear or ligamentous injury identified. 2. Joint effusion and small Gill's cyst. 3. Patellofemoral chondropathy noted.
== END 2023-11-04 23:59 | disposition home or self-care (01) ==
LOC: RAD 16:04
PROVIDERS: PCP Family Medicine; Visit Provider Family Medicine
DX: M25.562 Pain in left knee (principal)
CPT/HCPCS: 73721

== ENCOUNTER 2024-03-20 15:05 | Emergency (ER) | payer OTHER, SELFPAY ==
--- NOTE | 2024-03-20 15:33 | ED_ITS ---
Discharge Plan Disposition Patient Disposition: Home, Self-Care Condition: Good Prescriptions Prescriptions: New benzonatate 100 mg capsule 100 mg PO TIDP PRN (Reason: Cough) Qty: 30 0RF methylprednisolone 4 mg Tablets,Dose Pack 4 mg PO DIRECTED 6 Days Qty: 21 0RF Rx Instructions: Take 1 pack as directed for 6 days doxycycline hyclate 100 mg capsule 100 mg PO Q12 10 Days Qty: 20 0RF No Action hydrochlorothiazide 25 mg tablet 25 mg PO BID propranolol 20 mg tablet 20 mg PO BID omeprazole 20 mg capsule,delayed release(DR/EC) 20 mg PO DAILY bupropion HCl [Wellbutrin XL] 300 mg tablet extended release 24 hr 300 mg PO DAILY aspirin 81 mg tablet,delayed release (DR/EC) 81 mg PO DAILY atorvastatin [Lipitor] 40 mg tablet 40 mg PO DAILY hydrocodone-acetaminophen 7.5-325 mg tablet 1 tab PO BID PRN gabapentin 600 mg tablet 600 mg PO TID ibuprofen 800 mg tablet 800 mg PO TID PRN acetaminophen [Tylenol Extra Strength] 500 mg tablet 500 mg PO Q6H PRN Gemtesa 75 mg tablet 75 mg PO DAILY Patient Comments: TAKE ONE TABLET BY MOUTH EVERY DAY AT BEDTIME azithromycin [Zithromax] 250 mg tablet 250 mg PO UD DOSE PK Qty: 6 0RF Rx Instructions: Take two (2) tablets today, then one (1) tablet days #2 thru #5 benzonatate 100 mg capsule 100 mg PO TIDP PRN (Reason: Cough) Qty: 30 0RF methylprednisolone 4 mg Tablets,Dose Pack 4 mg PO DIRECTED 6 Days Qty: 21 0RF Rx Instructions: Take 1 pack as directed for 6 days Referrals Follow up/Referrals: Elian Oneill MD [Primary Care Provider] - See instructions Activity Restrictions/Add. Instructions Additional Instructions/Restrictions: Drink plenty of fluids. Take tylenol or ibuprofen for pain or fever. Take the medications as directed. Follow up with your regular doctor. GO TO THE ER FOR ANY WORSENING SYMPTOMS Clinical Impressions Clinical Impression: Pharyngitis Instructions Patient Instructions: Sore Throat, DI for Pharyngitis/Tonsillopharyngitis -- Adult Print Language Print Language: [place] Discharge ED Provider: Jg Dye [facility] [place] General Stated complaint: sore throat, lamont, SOA Time Seen by Provider: 03/20/24 15:33 Related Data Home Medications ?Medication ?Instructions ?Recorded ?Confirmed acetaminophen 500 mg tablet 500 mg PO Q6H PRN 03/31/22 10/28/23 (Tylenol Extra Strength) aspirin 81 mg tablet,delayed 81 mg PO DAILY 03/31/22 10/28/23 release atorvastatin 40 mg tablet (Lipitor) 40 mg PO DAILY 03/31/22 10/28/23 bupropion HCl 300 mg 24 hr tablet, 300 mg PO DAILY 03/31/22 10/28/23 extended release (Wellbutrin XL) gabapentin 600 mg tablet 600 mg PO TID 03/31/22 10/28/23 hydrochlorothiazide 25 mg tablet 25 mg PO BID 03/31/22 10/28/23 hydrocodone 7.5 mg-acetaminophen 1 tab PO BID PRN 03/31/22 10/28/23 325 mg tablet ibuprofen 800 mg tablet 800 mg PO TID PRN 03/31/22 10/28/23 omeprazole 20 mg capsule,delayed 20 mg PO DAILY 03/31/22 10/28/23 release propranolol 20 mg tablet 20 mg PO BID 03/31/22 10/28/23 vibegron 75 mg tablet (Gemtesa) 75 mg PO DAILY 10/28/23 10/28/23 Previous Rx's ?Medication ?Instructions ?Recorded azithromycin 250 mg tablet 250 mg PO UD DOSE PK #6 tabs 02/21/24 (Zithromax) benzonatate 100 mg capsule 100 mg PO TIDP PRN Cough #30 caps 02/21/24 methylprednisolone 4 mg tablets in 4 mg PO DIRECTED 6 days #21 tabs 02/21/24 a dose pack benzonatate 100 mg capsule 100 mg PO TIDP PRN Cough #30 caps 03/20/24 doxycycline hyclate 100 mg capsule 100 mg PO Q12 10 days #20 caps 03/20/24 methylprednisolone 4 mg tablets in 4 mg PO DIRECTED 6 days #21 tabs 03/20/24 a dose pack Allergies Allergy/AdvReac Type Severity Reaction Status Date / Time meperidine (From Demerol) Allergy Severe SEVERE Verified 10/28/23 09:56 [facility]ES [facility] Disclaimer: The information contained in this section may have been updated after the patient was seen, as this information can be updated by other users. Medical History Hyperlipidemia Occasional tremors Hypertension Chronic back pain Surgical History History of cholecystectomy Family History Grandfather Cancer Coronary artery disease Heart attack Grandmother Diabetes Mother Hypertension Asthma Social History Smoking Status: Current every day smoker tobacco type: cigarettes packs per day: 1 alcohol intake: never current occupational status: employed Travel in the last 8 weeks: None household members: spouse housing: house Have you lived/traveled outside [place] in past 30 days?: No Contact w/someone who lives/traveled outside [place] past 30 days?: No Exposure to someone with infectious disease in past 14 days?: No Do you have a fever (greater than 100.4 F or 38 C)?: No Have you tested positive for COVID-19: No Exposed to someone with COVID-19 in past 14 days?: No Do you have a sore throat?: Yes Do you have a cough?: No Do you have any weakness?: No Do you have any diarrhea?: No Are you experiencing any unusual bleeding?: No Do you have any muscle aches/pain?: No Do you have any abdominal pain?: No Are you experiencing loss of taste or smell?: No ROS Obtained: Yes All systems reviewed & no additional complaints except as documented Constitutional Constitutional: Reports chills and Reports fever(s) Eyes Eyes: Denies eye discharge ENT Ears, Nose, Mouth, and Throat: Reports as per HPI Cardiovascular Cardiovascular: Denies chest pain Respiratory Respiratory: Denies chest congestion and Reports cough Gastrointestinal Gastrointestingal: Reports nausea; Denies abdominal pain, constipation, cramping, diarrhea or vomiting Musculoskeletal Musculoskeletal: Denies arthralgias Integumentary/Breasts Skin/Breast: Denies rash Neurologic Neurologic: Denies paresthesias Physical Exam General General appearance: alert and in no apparent distress Head Head exam: atraumatic, normocephalic and normal inspection Eye Eye exam: Present normal appearance, PERRL and EOMI ENT ENT exam: Present mucous membranes moist and normal external ear exam Expanded ENT Exam TM/Canal exam: Bilateral TM: erythema and bulging Nose exam: Absent sinus tenderness Mouth exam: Present normal external inspection; Absent drooling Teeth exam: Present normal inspection Throat exam: Present tonsillar erythema, tonsillomegaly and tonsillar exudate Neck Neck exam: Present normal inspection, full ROM and trachea midline; Absent tenderness, meningismus or lymphadenopathy Chest Chest inspection: Present normal inspection and symmetric chest wall rise; Absent tenderness Respiratory Respiratory exam: Present normal lung sounds bilaterally; Absent respiratory distress, wheezes, stridor or accessory muscle use Cardiovascular Cardiovascular exam: Present regular rate and normal rhythm; Absent systolic mu rmur or diastolic murmur Abdominal Exam Abdominal exam: Present soft and normal bowel sounds; Absent distention, tenderness, guarding, rebound or rigidity Extremities Exam Extremities exam: Present normal inspection and normal capillary refill; Absent calf tenderness Back Exam Back exam: Present normal inspection and full ROM; Absent tenderness, CVA tenderness (R) or CVA tenderness (L) Neurological Exam Neurological exam: Present alert, oriented X3 and CN II-XII intact Psychiatric Psychiatric exam: Present normal affect and normal mood Skin Skin exam: Present warm, dry, intact and normal color Medical Decision Making Medical Records Medical records reviewed: No I reviewed the patient's medical records. Screening: Per USPSTF and CDC recommendations, given the prevalence of disease in our region, it is our hospital?s policy to screen for HIV and viral Hepatitis for all patients aged 18 and over and those with ongoing risk factors. Donnell Inquiry Pt receiving controlled substance: No Lab Data Lab results reviewed: Yes I reviewed the patient's lab results.
[2024-03-20 15:34] VITALS: BP 117/57; PULSE 81; RESP 18; TEMP 36.6; O2SAT 96; BMI 43.4
[2024-03-20 16:18] LABS: UTC Strep Screen (Rapid) Negative (Negative)
[2024-03-20] MEDS: DEXAMETHASONE 4MG/ML 1ML VIAL 8 MG IM (16:37)
[2024-03-20 16:42] VITALS: BP 117/57; PULSE 81; RESP 18; TEMP 36.6
== END 2024-03-20 16:43 | disposition home or self-care (01) ==
PROVIDERS: Emergency Provider Nurse Practitioner Family; PCP Family Medicine
DX: J02.9 Acute pharyngitis, unspecified (principal)
CPT/HCPCS: 87070; 87880; 99213; G0381; J1100

== ENCOUNTER 2024-04-13 15:37 | Outpatient (CLI) | payer OTHER, SELFPAY ==
--- NOTE | 2024-04-13 15:40 | XR_ITS ---
FINAL REPORT TECHNIQUE: Chest PA & Lateral CLINICAL HISTORY: SOB COMPARISON: 07/13/2023 FINDINGS: 2 views of the chest were performed. The heart size is normal. The mediastinum is within normal limits. There is no acute cardiopulmonary process. There are no pleural effusions. There is no pneumothorax. The bony thorax appears intact. IMPRESSION: No acute cardiopulmonary process. Reviewed, Interpreted and Dictated by Bart Kaba MD Transcribed by Ai Saunders Authenticated and [facility]
== END 2024-04-13 23:59 | disposition home or self-care (01) ==
LOC: RAD 15:38
PROVIDERS: PCP Family Medicine; Visit Provider Internal Medicine Pulmonary Disease
DX: R06.02 Shortness of breath (principal)
CPT/HCPCS: 71046

== ENCOUNTER 2024-04-21 07:36 | Outpatient (CLI) | payer OTHER, SELFPAY ==
[2024-04-21] MEDS: ALBUTEROL 0.083% 2.5 MG/3 ML NEB IH (08:43)
== END 2024-04-21 23:59 | disposition home or self-care (01) ==
LOC: RT 07:36
PROVIDERS: PCP Nurse Practitioner Family; Visit Provider Internal Medicine Pulmonary Disease
DX: R06.09 Other forms of dyspnea (principal)
CPT/HCPCS: 94060; 94618; 94726; 94729; J7613

== ENCOUNTER 2024-04-25 13:48 | Outpatient (CLI) | payer OTHER, SELFPAY | END 2024-04-25 23:59 | disposition home or self-care (01) | LOC: LAB 13:48 | PROVIDERS: PCP Family Medicine; Visit Provider Family Medicine | DX: R05.9 Cough, unspecified (principal) | CPT/HCPCS: 87070; 87077; 87205 ==

== ENCOUNTER 2024-05-22 17:33 | Outpatient (CLI) | payer OTHER, SELFPAY ==
[2024-05-22 18:26] LABS: D-Dimer 0.38 ug/mL (0.0-0.5)
[2024-05-22 18:33] LABS: Creatine Kinase MB 0.3 ng/ml (0.0-2.03)
--- NOTE | 2024-05-22 18:37 | ECG_ITS ---
APPROVED REPORT Exam: Resting ECG HR:76 bpm ECG Measurements Heart Rate 76 AXES ID 163 P 65 QRSd 93 QRS 30 QT 363 T 51 QTc 393 Conclusion SINUS RHYTHM POSSIBLE LEFT ATRIAL ENLARGEMENT [-0.1mV P-WAVE IN V1/V2] BORDERLINE ECG UNCONFIRMED REPORT Electronically signed by : Roman Barker MD 05/23/2024 08:52:08
== END 2024-05-22 23:59 | disposition home or self-care (01) ==
LOC: RT 17:37
PROVIDERS: PCP Family Medicine; Visit Provider Nurse Practitioner Obstetrics & Gynecology
DX: R07.9 Chest pain, unspecified (principal)
CPT/HCPCS: 36415; 82553; 85378; 93005

== ENCOUNTER 2024-06-23 08:37 | Outpatient (CLI) | payer OTHER, SELFPAY ==
--- OUTSIDE RECORDS SUMMARY | 2024-06-23 08:39 | XMS_ITS | Continuity of Care Document ---
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 Plan of Treatment Reminders Order Date Submit Date Provider Last Modified By Organization Details Last Modified Time Details Appointments FOLLOW UP [facility] 2025 07:40A M YENNI LOPEZ NP Not available Not available Not available Lab None record ed. Referral None record ed. Procedures None record ed. Surgeries None record ed. Imaging None record ed. Medication Orders None record ed. Patient TargetsNo targets recorded. Patient InstructionsNo instructions recorded. Reason for Referral None Reported. Problems No Known Problems Procedures Surgical History Date Name Laterality Status Provider Name and Address Organization Details Recorded Time 025 DAK - Destruction BN Lesions completed Melanie Duffy [facility] 06/21/2024 08:04:20 024 DAK - Destruction BN Lesions completed DEXTER CARRASCO MD [address] [place], [address], [facility] 12/25/2023 14:25:10 020 Tympanogram completed WILMA PARSONS [address] [place], [address], [facility] 08/03/2019 13:31:06 020 Audiogram completed WILMA PARSONS [address] [place], [address], [facility] 08/03/2019 13:31:05 020 Laryngoscopy Flex completed Eddiemichael Eason [facility] 08/03/2019 10:08:05 018 Tympanogram completed MEAGHAN FERRERA, AUD [address] [place], [address], [facility] 08/18/2017 10:30:07 018 Audiogram completed MEAGHAN FERRERA, AUD [address] [place], [address], [facility] 08/18/2017 10:30:05 Unlisted px dentalvlr strux completed Angelique David [facility] 08/18/2017 10:17:29 Carpal Tunnel Surgery completed Melinda Jackson [facility] 06/12/2020 09:19:30 cholecystectomy completed Rosa Ventura [facility] 12/25/2023 07:50:52 Imaging Results None recorded. Procedure Notes None recorded. Medical Equipment None Reported. Allergies No known drug allergies Medications Name Sig Start Date Stop Date Status Note LastModified by Organization Details LastModified Time dhea 25mg micronized 12/24 completed Not Available Not Available Not Available testosteron e 1% (5mg) cream 12/24 completed Not Available Not Available Not Available cyclobenzap rine 10 mg tablet TAKE ONE TABLET BY MOUTH THREE TIMES DAILY NEEDED MAY CAUSE DROWSINES S 12/24 completed Not Available Not Available Not Available fluconazole 100 mg tablet TAKE ONE TABLET BY MOUTH A ONE-TIME DOSE; MAY REPEAT in 3 DAYS if no improveme nt. active Not Available Not Available No t Available atorvastati n 40 mg tablet TAKE ONE TABLET BY MOUTH EVERY DAY active Not Available Not Available No t Available prednisone 10 mg tablet 12/24 completed Not Available Not Available Not Available gabapentin 600 mg tablet TAKE ONE TABLET BY MOUTH EVERY 8 HOURS MAY CAUSE DROWSINES S active Not Available Not Available No t Available doxycycline hyclate 100 mg capsule TAKE ONE CAPSULE BY MOUTH EVERY TWELVE HOURS (900am AND 900pm) FOR 10 DAYS -- FINISH ALL MEDICINE -- active Not Available Not Available No t Available cetirizine 10 mg tablet TAKE 1 TABLET BY MOUTH EVERYDAY AT BEDTIME active Not Available Not Available No t Available azithromyci n 250 mg tablet TAKE 2 TABLETS BY MOUTH TODAY, THEN TAKE 1 TABLET DAILY FOR 4 DAYS 12/24 completed Not Available Not Available Not Available hydrocodone 5 mg-acetamin ophen 325 mg tablet TAKE 1 TABLET BY MOUTH EVERY SIX HOURS FOR PAIN 12/24 completed Not Available Not Available Not Available ciprofloxac in 500 mg tablet TAKE 1 TABLET BY MOUTH TWICE A DAY FOR 5 DAYS 12/24 completed Not Available Not Available Not Available sulfamethox azole 800 mg-trimetho prim 160 mg tablet 12/24 completed Not Available Not Available Not Available omeprazole 40 mg capsule,del ayed release TAKE ONE CAPSULE BY MOUTH EVERY DAY active Not Available Not Available No t Available triamcinolo ne acetonide 0.1 % topical cream APPLY THIN COAT TO AFFECTED AREA TWICE A DAY 12/24 completed Not Available Not Available Not Available famotidine 20 mg tablet TAKE 1 TABLET BY MOUTH TWICE A DAY DIRECTED active Not Available Not Available No t Available tamsulosin 0.4 mg capsule TAKE 1 CAPSULE BY MOUTH DAILY FOR 7 DAYS 12/24 completed Not Available Not Available Not Available sulfacetami de sodium 10 % eye drops 12/24 completed Not Available Not Available Not Available benzonatate 100 mg capsule TAKE ONE CAPSULE BY MOUTH THREE TIMES DAILY NEEDED FOR COUGH -SWALLOW WHOLE. DO NOT CRUSH OR CHEW- active Not Available Not Available No t Available hydrocodone 7.5 mg-acetamin ophen 325 mg tablet TAKE ONE TABLET BY MOUTH EVERY DAY MAY CAUSE DROWSINES S active Not Available Not Available No t Available oseltamivir 75 mg capsule 12/24 completed Not Available Not Available Not Available prednisone 50 mg tablet TAKE ONE TABLET BY MOUTH EVERY DAY --TAKE WITH FOOD-- active Not Available Not Available No t Available gabapentin 300 mg capsule TAKE 1 CAPSULE BY MOUTH TWICE A DAY 12/24 completed Not Available Not Available Not Available omeprazole 20 mg capsule,del ayed release TAKE 1 CAPSULE BY MOUTH ONCE DAILY 30 MINUTES TO 1 HOUR BEFORE A MEAL 12/24 completed Not Available Not Available Not Available clindamycin 2 % vaginal cream INSERT 1 APPLICATO RFUL VAGINALLY AT BEDTIME FOR 7 DAYS 12/24 completed Not Available Not Available Not Available codeine 10 mg-guaifene sin 100 mg/5 mL oral liquid TAKE 2 TEASPOONS FUL (10 ML) BY MOUTH EVERY 4 TO 6 HOURS NEEDED FOR COUGH MAY CAUSE DROWSINES S active Not Available Not Available No t Available hydrochloro thiazide 25 mg tablet TAKE ONE TABLET BY MOUTH TWICE DAILY active Not Available Not Available No t Available ergocalcife rol (vitamin D2) 1,250 mcg (50,000 unit) capsule TAKE 1 CAPSULE BY MOUTH ONCE A WEEK active Not Available Not Available No t Available methylpredn isolone 4 mg tablets in a dose pack TAKE ACCORDING TO PACKAGE INSTRUCTI ONS --TAKE WITH FOOD-- -- FINISH ALL MEDICINE -- active Not Available Not Available No t Available albuterol sulfate HFA 90 mcg/actuati on aerosol inhaler INHALE TWO PUFFS BY MOUTH EVERY 6 HOURS NEEDED active prn Not Available Not Available No t Available ipratropium bromide 42 mcg (0.06 %) nasal spray [place] 2 sprays 3 times a day by intranasa l route for 30 days. 12/24 completed Not Available Not Available Not Available propranolol 20 mg tablet TAKE ONE TABLET BY MOUTH TWICE DAILY active Not Available Not Available No t Available ketoconazol e 2 % topical cream 12/24 completed Not Available Not Available Not Available ondansetron 4 mg disintegrat ing tablet DISSOLVE 1 TABLET BY MOUTH EVERY 8 HOURS NEEDED FOR NAUSEA 12/24 completed Not Available Not Available Not Available cefdinir 300 mg capsule 08/26 completed Not Available Not Available Not Available dexamethaso ne sodium phosphate 10 mg/mL injection solution Take 10 mL by injection route. 08/26 completed Not Available Not Available Not Available fluticasone propionate 50 mcg/actuati on nasal spray,suspe nsion 12/24 completed Not Available Not Available Not Available Zelnorm 6 mg tablet TAKE 1 TABLET BY MOUTH TWICE DAILY 12/24 completed Not Available Not Available Not Available Prilosec OTC 20 mg tablet,daryl yed release Take by oral route. 12/24 completed Not Available Not Available Not Available bupropion HCl XL 300 mg 24 hr tablet, extended release TAKE ONE TABLET BY MOUTH EVERY DAY active Not Available Not Available No t Available duloxetine 30 mg capsule,del ayed release TAKE 3 CAPSULES BY MOUTH ONCE A DAY active Not Available Not Available No t Available duloxetine 60 mg capsule,del ayed release 12/24 completed Not Available Not Available Not Available Zyrtec 12/24 completed Not Available Not Available Not Available Cymbalta 12/24 completed Not Available Not Available Not Available budesonide- formoterol HFA 160 mcg-4.5 mcg/actuati on aerosol inhaler INHALE TWO PUFFS BY MOUTH TWICE DAILY --RINSE MOUTH AFTER USE-- active Not Available Not Available No t Available Myrbetriq 25 mg tablet,exte nded release TAKE 1 TABLET BY MOUTH EVERYDAY AT BEDTIME 12/24 completed Not Available Not Available Not Available Gemtesa 75 mg tablet TAKE ONE TABLET BY MOUTH EVERY DAY AT BEDTIME active Not Available Not Available No t Available Mounjaro 2.5 mg/0.5 mL subcutaneou s pen injector INJECT 1 DOSE SUBCUTANE OUSLY ONCE WEEKLY 12/24 completed Not Available Not Available Not Available Vitals None Recorded Social History Question Answer Notes LastModified by Organizat ion Details LastModified Time Tobacco Smoking Status Current Every Day Smoker Melinda mckeon, [facility] 06/12/2020 09:19:05 What Is Your Level Of Alcohol Consumption? Occasional [email or web address] Information not available 08/18/2017 What Was The Date Of Your Most Recent Tobacco Screening? 12/25/2023 [email or web address] Information not available 12/25/2023 Has Tobacco Cessation Counseling Been Provided? No [email or web address] Information not available 08/18/2017 Sex: Female Functional Status None recorded. Mental Status None recorded. Family History Relationship Description Onset Age of this Age Resolved Age Notes LastModified by Organization Details LastModified Time Mother Disorder of thyroid gland [email or web address] Not available 08/18 10:16:19 Mother Hypertensive disorder [email or web address] Not available 08/18 10:16:33 Father Hypertensive disorder [email or web address] Not available 08/18 10:16:41 Father Family history of stroke [email or web address] Not available 08/18 10:16:59 Father Diabetes mellitus [email or web address] Not available 08/18 10:17:07 Maternal Grandfather Malignant melanoma [email or web address] Not available 12/24 07:49:53 Maternal Grandfather Malignant tumor of gallbladder [email or web address] Not available 07:50:06 Medical History Condition Response Kidney Stones N Hyperthyroidism N Heart Arrhythmia N Emphysema N Esophagus/swallowing troubles N Glaucoma N Lung Disease N Depression N Hypothyroidism N Anesthesia Complications N Anxiety Disorder N Varicose Veins Y Autoimmune disease N Hearing Loss N Arthritis N Acid Reflux (GERD) N Cancer N Melanoma N Stroke N Hoarseness N Alcohol Overuse/Alcohol Abuse N High Cholesterol Y Skin Cancer N Liver Disease N Snoring problems N Fibromyalgia Y Headaches N Kidney Disease N Allergies/Hayfever N Heart Problems N Squamous Cell Carcinoma N Mental handicap N Ear or Hearing Problems N Gallbladder Disease N Migraines N Thyroid Problems N Goiter N Acne N Skin Problems N Anemia N Chest Pain N Immune System Disorder N Stomach trouble N Heart Attack ([place]) N Ulcers N Other Skin Condition N Diabetes N Rheumatic Fever N Bleeding Disorder N Tuberculosis N AIDS/HIV N Hyperlipidemia N Eczema N Asthma N Epilepsy/Seizures N Basal Cell Carcinoma N Sleep Apnea Y Sleep Disorder N Hepatitis N Heart Disease N Hypertension N Gynecological HistoryNo gynecological history recorded. Obstetrics History GPAL:G 0 P 0 0 0 0 Past Encounters Encounter ID Performer Location Encounter Start Date Encounter Closed Date Diagnosis/Indication Diagnosis SNOMED-CT Code Diagnosis ICD10 Code Diagnosis Note [id number] KADY MAGDALENO R, LENS MOLDER [place] [address] [place] [address] 06/21/2024 07:32:18 06/21/2024 08:17:08 Inflamed seborrheic keratosis 013711472 L82.0 L53.8 Patient reports she has been picking at this, very irritated and bothersome . Requests removal Counseled on benign nature. Pt elected to treat with liquid nitrogen due to painful irritation . May recur or persist after treatment. Discolorat ion or scarring is possible. Benign layton plasm of skin 59962491 D23.9 No change since last visit 6 months ago - Monitor for color/shap e changes- Favor dark mole/dark lentigo on left thighLesio n is likely benign, rec'd watchful monitoring and reporting change to us Health Concerns Section Related Observation LastModified by Organization Detelizabeth ls LastModified Time None Recorded Concern Status LastModified by Organization Details LastModified Time None Recorded Payers Encounter Date Sequence Insurance Name Policy Number Policy Edwards Covered Member ID Edwards Member ID Guarantor Name 06/21/2024 1 [facility] [id number] Kristina Roman [id number] Kristina Carolina Abel Notes Date Note Type Note Provider Name and Address Organization Details Recorded Time 06/21/2024 text/html Mole Location: Scalp Duration: Noticed it 1mo ago Previous tx: None Reports: Rough and scaly. Pt is picking at it. She wants it looked at bc she spent her entire childhood outside in the pool and Maternal grandfather had MM on the scalp. Pt picked it off twice and it came back. KADY LOPEZ, LENS MOLDER [address] [place], [address], [facility] 06/21/2024 10:43:45 OBGyn Episode No OBEpisode recorded.
--- OUTSIDE RECORDS SUMMARY | 2024-06-23 08:39 | XMS_ITS | Data Portability ---
Author Organization [facility] telehealth Address [address] [place] [address] Assessment Encounter Date Assessment Date Assessment LastModified by Organization Details LastModified Time 10/30/2021 10/30/2021 51 y/o F here today for annual exam. WNWD female in NAD. Doing well w/o but has noticed worsening incontinence, especially at night. She has been evaluated for a cystocele with Dr. Hahn but last ULS was in 2019. Will schedule pt with Dr. Hahn for evaluation. Does SBE's. Mammogram and colonoscopy up to date. Pap UTD today. Denies dysuria or hematochezia. RTC to see Dr. Hahn. All other ROS neg X HPI. Meds reviewed and accurate. Pleasant mood. [email or web address] Not available 10/30/2021 09:56:38 12/09/2021 12/09/2021 51yo F presents for worsened urinary incontinence. Pt also reports she hasn't had menses in over a year and has been experiencing hot flashes. 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 Nabothian cysts were also noted. Abnormal vaginal discharge noted on Spec exam. Uterus is not prolapsed. Mild urethral hypermobility noted on exam. Surgery is not indicated at this time. Recommended Kegel exercises. Pt would like to get hormone labs drawn at her PCP and have her results sent. Started pt on Gemtesa. [email or web address] Not available 12/09/2021 15:53:26 05/20/2023 05/20/2023 52 y/o F here today for annual exam. WNWD female in NAD. Doing well w/o SHOW HOST complaint. Doing well on Gemtesa, will send refill for one year. Occasionally does SBE's. Mammogram performed today. Colonoscopy (2020) up to date. DEXA order provided in office. Pap today. Denies dysuria or hematochezia. RTC in one year or PRN. ROS neg X HPI. Meds reviewed and accurate. Pleasant mood. [email or web address] Not available 05/20/2023 12:28:38 06/06/2024 06/06/2024 54 y/o F here today for annual exam. WNWD female in NAD. Reports concerns for weight gain. PMHx includes hyperlipidemia, hypertension, and KRIS. KRIS was confirmed diagnosis via sleep study, pt will send us these results. She will also fax clinic her annual labs drawn by her PCP. FMHx includes HTN (mother and father), and chronic venous insufficiency (mother), VT (father), TIA (father), and hyperlipidemia (father). For management, will send in Wegovy for hyperlipidemia and weight loss. She is doing well with Gemtesa, will refill for one year. Does SBE's. Mammogram up to date. Pt plans to schedule Colonoscopy this year. Denies urinary incontinence, abnormal vaginal discharge, dysuria, or hematochezia. Pap today. RTC for WL follow up or PRN. ROS neg X HPI. Meds reviewed and accurate. Pleasant mood. Not available 06/07/2024 18:29:07 Plan of Treatment Reminders Order Date Submit Date Provider Last Modified By Organization Details Last Modified Time Details Appointments ANNUAL SHOW HOST 2025 09:00A M rAa Hamilton PA-C Not available Not available Not available Lab pap, LB 2024 025 [facility] ([facility]), [address] [place] [address], [address], 06/07/2024 18:08:17 pap, LB 2023 024 [facility] ([facility]), [address] [place] [address], [address], 05/25/2023 09:43:58 pap, LB 2021 022 [facility] ([facility]), [address] [place], [address], 11/03/2021 21:18:04 fecal occult blood, stool 2021 022 [email or web address] Terri Hahn MD, [address], [place], [address], 10/30/2021 09:54:49 Referral None recorded. Procedures None recorded. Surgeries None recorded. Imaging None recorded. Medication Orders Gemtesa 75 mg tablet 2024 025 [facility], [address] [place] [address] E Padmini Graf [place], [id number], 06/11/2024 10:45:50 Wegovy 0.25 mg/0.5 mL subcutane ous pen injector 2024 025 [facility], [address] [place] [address] E [place], [id number], 06/06/2024 10:49:15 Gemtesa 75 mg tablet 2023 024 [facility], [address] [place] [address] [place], [id number], 05/13/2024 10:41:31 Gemtesa 75 mg tablet 2021 022 [facility], [address] [place] [address] [place], [id number], 12/01/2022 11:15:34 Patient TargetsNo targets recorded. Patient InstructionsNo instructions recorded. Reason for Referral None Reported. Results Created Date Observation Date Name Description Value Unit Range Abnormal Flag Note LastModifiedBy Organization Detail LastModifiedTime 10/31/1911/02/2021 PAP TEST THIN PREP Pap test thin prep NEGATI VE FOR INTRAE PITHEL IAL LESION OR MALIGN SHIRLEY normal ACCES MARCOS #: [id number] [id number] Sourc e: Cervi zenia/E ndoce rvica l LMP: unkno wn Date Taken : 10/30 Speci men Type: ThinP rep Vial Date Repor jo: 2021 Clini zenia Data: Cytot ech: Susan Gandara, CT( CP) Date Repor jo: 2021 Speci men Adequ acy: Satis facto ry for evalu ation Endoc ervic al/tr ansfo rmati on zone compo nent prese nt Gener al Categ oriza tion: NEGAT SHAYY FOR INTRA EPITH ELIAL LESIO N OR MALIG SUSAN Inter preta tion/ Resul t: Shift in chante sugge stive of bacte rial vagin osis The follo wing tests have been order ed as reque sted and a separ ate repor t will be issue d: HPV High Risk Scree n (TMA) This speci men has been john zed by the ThinP rep Imagi ng Syste m, an inter activ e compu ter syste m which audie ts the lab in the scree kristina of ThinP rep Pap Test slide s. Follo wing imagi ng, the slide was revie wed by a Cytot echno logis t and/o r Patho logis t. End of Repor t Techn ical servi alea provi ded by [facility] i[facility] Patho logis [employer], d/b/a Simone sunshine, [address] [place] [address] Jamir Bear MD, Labor [employer] Dire tor. Case revie wed and diagn osis rende red at [facility], [facility], d/b/a Simone sunshine, [address] [place] [address] Jamir Bear MD, Labor [employer] Dire tor. CONFI DENTI AL Not Available [facility] ([facility]) [address], [place], [address], 11/03/2021 21:18:04 10/31/19 22 11/01/2021 HPV HIGH RISK KOJO Osborn (TMA) HPV high risk NOT DETECT ED normal The human papil lomav irus (HPV) High Risk Kojo osborn is an FDA-a pprov ed in-vi tro ampli fied nucle ic acid test for the quali tativ e detec tion of E6/E7 viral mRNA. Resul ts shoul d be corre lated with patie nt prese ntati on, histo ry, cervi zenia cytol ogy and other clini zenia and labor atory findi ngs. See https ://Rifiniti/s ites/ defau lt/fi les/2 018-0 3/AW- 09851 _002_ 01.pd f for furth er infor justin n. Test perfo rmed by [facility], d/b/a [facility] roukatherine, [address] , [facility], [place] [address] , Maico Kee ra, DO, Labor atory Direc tor. Not Available [facility] ([facility]) [address], [place], [address], 11/03/2021 21:18:05 10/31/19 22 10/30/2021 fecal occul t blood , stool Occult Blood negati ve Not Available Terri Hahn MD [address], [place], [address], 10/30/2021 09:32:09 12/10/19 22 12/09/2021 lab* lab Not Available [facility] [address] , [facility] [place], [address], 12/11/2021 10:40:39 05/20/19 24 05/25/2023 PAP TEST THIN PREP Pap test thin prep NEGATI VE FOR INTRAE PITHEL IAL LESION OR MALIGN SHIRLEY normal ACCES MARCOS #: [id number] [id number] Sourc e: Cervi zenia/E ndoce rvica l LMP: unkno wn Date Taken : 05/19 Speci men Type: ThinP rep Vial Date Repor jo: 2023 Clini zenia Data: Cytot ech: Jg Gallo cki CT( CP) Date Repor jo: 2023 Revie wed By: Rachel Christie y, CT( CP) Speci men Adequ acy: Satis facto ry for evalu ation No endoc ervic al/tr ansfo rmati on zone compo nent prese nt Gener al Categ oriza tion: NEGAT SHAYY FOR INTRA EPITH ELIAL LESIO N OR MALIG SUSAN The follo wing tests have been order ed as reque sted and a separ ate repor t will be issue d: HPV High Risk Scree n (TMA) This speci men has been john zed by the ThinP rep Imagi ng Syste m, an inter activ e compu ter syste m which audie ts the lab in the scree kristina of ThinP rep Pap Test slide s. Follo wing imagi ng, the slide was revie wed by a Cytot echno logis t and/o r Patho logis t. End of t Techn ical servi alea provi ded by [facility] [employer] [facility] [employer], d/b/a Simone sunshine, [facility] [address] [place] [address] Valencia davis MD, Labor atory Dire tor. Case revie wed and diagn osis rende red at [facility] [employer] [facility] [employer], d/b/a Simone sunshine, [facility] [place] [address] Valencia davis MD, Labor atory Dire tor. CONFI DENTI AL Not Available [facility] ([facility]) [address], [place], [address], 05/25/2023 09:43:58 05/20/19 24 05/21/2023 HPV HIGH RISK SCREE N (TMA) HPV high risk NOT DETECT ED normal The human papil lomav irus (HPV) High Risk Scree n is an FDA-a pprov ed in-vi tro ampli fied nucle ic acid test for the quali tativ e detec tion of E6/E7 viral mRNA. [facility] ian galicia be corre lated with patie nt prese ntati on, histo ry, cervi zenia cytol ogy and other clini zenia and labor atory findi ngs. See https ://Desti wPublicfast/s ites/ defau lt/fi les/2 018-0 3/AW- 57617 _002_ 01.pd f for furth er infor matio n. Test perfo rmed by [facility], [facility] d/b/a [facility] sunshine, [address] [facility], [place] [address] , Maico Kee ra, DO, Labor [facility]ory [facility], CLIA# [id number] Not Available [facility] ([facility]) [address] [facility] [address], [place], [address], 05/25/2023 09:43:59 06/07/19 25 06/07/2024 PAP TEST THIN PREP Pap test thin prep NEGATI VE FOR INTRAE PITHEL IAL LESION OR MALIGN SHIRLEY normal ACCES MARCOS #: [id number] [id number] Sour e: Cervi zenia/E ndoce rvica l LMP: unkno wn Date Taken : 06/06 Speci men Type: ThinP rep Vial Date Repor jo: 025 Clini zenia Data: Cytot ech: Farnaz Valdez bindu CT( CP) Date Repor jo: 025 Speci men Adequ acy: Satis facto ry for evalu ation Endoc ervic al/tr ansfo rmati on zone compo nent prese nt Gener al Categ oriza tion: NEGAT SHAYY FOR INTRA EPITH ELIAL LESIO N OR MALIG SUSAN The follo wing tests have been order ed as reque sted and a separ ate repor t will be issue d: HPV High Risk Kojo n (TMA) This speci men has been john zed by the ThinP rep Imagi ng Syste m, an inter activ e compu ter syste m which audie ts the lab in the scree kristina of ThinP rep Pap Test slide s. Hueyo wing imagi ng, the slide was revie wed by a Cytot echno logis t and/o r Patho logis t. Cervi zenia cytol ogy is a scree kristina test prima rily for squam ous cance rs and precu rsors and has assoc iated false -nega tive and false -posi tive resul ts. New techn ologi es such as liqui d-bas ed prepa ratio ns may decre ase but will not elimi bib all false -nega tive resul ts. Regul ar sampl ing and follo w-up of unexp mahesh d clini zenia signs and sympt oms are recom maik d to minim ize false negat shayy resul ts. End of Repor t Techn ical servi alea provi ded by [facility] log[facility] [employer] [facility], d/b/a [facility], [facility] [address] [place] [address] Valencia davis MD, [facility] ator Dire tor. Case revie wed and diagn osis rende red at [facility] [employer] [facility], d/b/a [facility], [facility] [address] [place] [address] Valencia davis MD, Labor ator Dire tor. CONFI DENTI AL Not Available [facility] ([facility]) [facility] [address], [place], [address], 06/07/2024 18:08:17 06/07/19 25 06/07/2024 HPV HIGH RISK SCRESaroj N (TMA) HPV high risk NOT DETECT ED normal The human papil lomav irus (HPV) High Risk Scree n is an FDA-a pprov ed in-vi tro ampli fied nucle ic acid test for the quali tativ e detec tion of E6/E7 viral mRNA. Resul ts shoul d be corre lated with patie nt prese ntati on, histo ry, cervi zenia cytol ogy and other clini zenia and labor atory findi ngs. See https ://ww wPublicfast/s lencho/ lorenzo lt/fi les/2 018-0 3/AW- 57183 _002_ 01.pd f for lilliana gregorio infor justin osborn. Test perfo rmed by [facility] d/b/a [facility], [address], [place] [address] , Maico Kee ra, DO, Labor atory Dire tor, CLIA# [id number] Not Available [facility] ([facility]) [address] [facility] [address], [place], [address], 06/07/2024 18:08:18 08/06/19 24 07/30/2023 DEXA No observ ation record ed. [email or web address] Not Available 2023 22:08:58 Result Notes None recorded. Problems Name Problem SNOMED Code Status Onset Date Resolution Date Notes Provider Name and Address Organization Details Recorded Time Overactive urinary bladder 944245725 Active [address] [facility], [place], [address], [facility] 4 11:45:07 Obesity 107494953 Active [address], [place], [address], [facility] 5 09:32:37 Hyperlipidemia 76608264 Active [address], [place], [address], [facility] 5 09:33:21 Essential hypertension 75400103 Active [address], [place], [address], [facility] 18:29:39 Obstructive sleep apnea syndrome 69402721 Active [address], [place], [address], [facility] 18:29:46 Problem Notes None recorded. Procedures Surgical History Date Name Laterality Status Provider Name and Address Organization Details Recorded Time 06/07/19 25 Date of Last Pap Smear completed [facility] 06/06/2024 09:09:32 06/07/19 25 Date of Last Mammogram completed [facility] 06/06/2024 09:09:40 03/09/19 24 Most Recent Bone Density completed [facility] 06/06/2024 09:09:51 12/10/19 22 Non-OB ULS completed MD [address], [place], [address], [facility] 12/09/2021 15:55:42 03/09/19 21 Colonoscopy completed [facility] 05/20/2023 11:20:36 Imaging Results Imaging Date Name Status LastModified by Organizatio n Details LastModified Time 07/30/2023 DEXA completed Information no t available 08/16/2023 22:08:58 Procedure Notes None recorded. Medical Equipment None Reported. Allergies Allergen ID Allergen Name Allergen Category Reaction Reaction Severity Criticality Documentation Date Start Date Code Code System Note Provider Name and Address Organization Details Recorded Time [facility] Not available 10/30/2021 27249 1 RxNorm [facility] 2 09:33:20 Medications Name Sig Start Date Stop Date Status Note LastModified by Organization Details LastModified Time Prescript ion - Prior Authoriza tion Request active Not Available Not Available Not Available Zyrtec 10 mg tablet Take 1 tablet every day by oral route. 05/19 completed Not Available Not Available Not Available Lipitor 20 mg tablet Take 1 tablet every day by oral route. active Not Available Not Available No t Available omeprazol e 20 mg capsule,d elayed release Take 1 capsule every day by oral route. active Not Available Not Available No t Available propranol ol 20 mg tablet Take 1 tablet 3 times a day by oral route. active Not Available Not Available No t Available Hctz/Rese rpine/Hyd ralazine 25 mg-0.1 mg-15 mg tablet Take 1 tablet twice a day by oral route. active Not Available Not Available No t Available Wellbutri n XL 300 mg 24 hr tablet, extended release Take 1 tablet every day by oral route. active Not Available Not Available No t Available Vitamin D3 active Not Available Not Available Not Available Asprin Ec Low Dose active Not Available Not Available Not Available Myrbetriq 25 mg tablet,ex tended release 12/09 completed Days To Take: 30 #ofRe fills: 30 Drug Identifi cation Code: [id number] F ree Text SIG: Myrbetri q 25MG, 1 (one) Tablet at bedtime # 30, 08/23/19 20, Ref. x3. Active Not Available Not Available Not Available Gemtesa 75 mg tablet Take 1 tablet every day by oral route at bedtime for 30 days. 2024 active Not Available Not Available Not Avai lable Wegovy 0.25 mg/0.5 mL subcutane ous pen injector active Not Available Not Available Not Available Vitals Date Recorded Body height Body mass index (BMI) Body weight Systolic blood pressure Diastolic blood pressure Provider Name and Address Organization Details Last Updated DateTime 10/30/2021 162.56 cm 45.2 kg/m2 737225.9 5 g 144 mm[Hg] 86 mm[Hg] Dilma Tolbertjg [facility] 2 09:33:01 Date Recorded Body height Body mass index (BMI) Body weight Systolic blood pressure Diastolic blood pressure Provider Name and Address Organization Details Last Updated DateTime 12/09/2021 162.56 cm 45.1 kg/m2 023089.0 7 g 128 mm[Hg] 86 mm[Hg] Kim [facility] 2 14:50:51 Date Recorded Body height Body mass index (BMI) Body weight Systolic blood pressure Diastolic blood pressure Provider Name and Address Organization Details Last Updated DateTime 05/20/2023 162.56 cm 42.1 kg/m2 437586.5 7 g 122 mm[Hg] 86 mm[Hg] [facility]ique [facility] 4 11:18:34 Date Recorded Body height Body mass index (BMI) Body weight Systolic blood pressure Diastolic blood pressure Provider Name and Address Organization Details Last Updated DateTime 06/06/2024 162.56 cm 42.7 kg/m2 992458.5 g 124 mm[Hg] 82 mm[Hg] [facility] 5 09:09:05 Social History Question Answer Notes LastModified by Organizat ion Details LastModified Time Tobacco Smoking Status Current Every Day Smoker 10 a day at most [facility] 06/06/2024 09:10:54 What Is Your Level Of Alcohol Consumption? Occasional [email or web address] Information not available 10/30/2021 Do You Use Protection During Sex? No [email or web address] Information not available 10/30/2021 What Is Your Relationship Status? [email or web address] Information not available 10/30/2021 Are You Sexually Active? Yes [email or web address] Information not available 10/30/2021 Do You Use Any Illicit Or Recreational Drugs? No Information not available 10/30/2021 Do You Or Have You Ever Used Any Other Forms Of Tobacco Or Nicotine? No [email or web address] Information not available 10/30/2021 Do You Have Any Future Plans To Get ? No, I Don't Want To Become Information not available 10/30/2021 Sex: Unknown Functional Status None recorded. Mental Status None recorded. Family History Nothing Reported Notes:maternal grandmother 2 : Diabetes Mother: Rheumatoid arthritis (RA); Hypertension Medical History No medical history recorded. Gynecological History Statement/Question Response Who is your Primary Care Physician Beaso n Abnormal Pap N Date of Last Mammogram 06/06/2024 Most Recent Bone Density 03/09/2023 Are your periods regular? N HPV Vaccine N Date of Last Pap Smear 06/06/2024 Age at Menarche 11 Colonoscopy 03/09/2020 Hormone Replacement Therapy N Obstetrics History GPAL:G 2 P 2 0 0 2 Type Value Full Term 2 Living 2 Total 2 Past Encounters Encounter ID Performer Location Encounter Start Date Encounter Closed Date Diagnosis/Indication Diagnosis SNOMED-CT Code Diagnosis ICD10 Code Diagnosis Note [id number] Galina HAHN MD [address] [place] [address] 10/30/2021 09:12:26 10/30/2021 10:01:23 Routine gynecologic examination done 7898178549 9101 Z01.419 Screening for malignant neoplasm of colon 527937806 Z12.11 [id number] MD TERRI Julien MD [address] [place] [address] 12/09/2021 14:16:29 12/09/2021 15:58:06 Amenorrhea 41839050 N91.2 Intramural leiomyoma of uterus 94477507 D25.1 Lateral cystocele 418844 001 N81.12 Vaginal discharge 230717 006 N89.8 will culture via PCL Urethral hypermobility 9182424023 9108 N36.41 Overactive urinary bladder 734331001 N32.81 Female str ess incontinence 49633993 N39.3 Dysuria 25125458 R30.0 will culture via PCL Menopausal symptom 61389 002 N95.1 [id number] AYO Lacey MD [address] [place] [place] [address] 05/20/2023 10:59:43 05/20/2023 13:01:21 Routine gynecologic examination done 3736766331 9101 Z01.419 Overactive urinary bladder 356478530 N32.81 [id number] AYO Lacey MD [address] [place] [place] [address] 06/06/2024 08:45:12 06/13/2024 13:01:29 Routine gynecologic examination done 3532122863 9101 Z01.419 Overactive urinary bladder 872516967 N32.81 Hyperlipidemia 19139213 E78.2 Obesity 883762226 E66.01 Family his tory of hyperlipidemia 264398986 Z83.49 Family his tory of Hypertension 889102351 Z82.49 Family his tory of Myocardial infarction 808715698 Z82.49 Essential hypertension 54896985 I10 Obstructiv e sleep apnea syndrome 14096215 G47.33 Health Concerns Section Related Observation LastModified by Organization Detai ls LastModified Time None Recorded Concern Status LastModified by Organization Details LastModified Time None Recorded Advance Directives Directive None Recorded Payers Encounter Date Sequence Insurance Name Policy Number Policy Edwards Covered Member ID Edwards Member ID Guarantor Name 10/30/2021 1 R [id number] Kristina Roman [id number] Kristina Roman 12/09/2021 1 UMR [id number] Kristina Roman [id number] Kristina Roman 05/20/2023 1 [id number] Kristina Roman [id number] Kristina Roman 06/06/2024 1 R [id number] Kristina Roman [id number] Kristina Roman Notes Date Note Type Note Provider Name and Address Organization Details Recorded Time 10/30/2021 text/html Annual GYNReport ed bypatient.Notes:wo rsening incontinence [facility] 10/30/2021 09:57:13 12/09/2021 text/html Pt here for worsened urinary incontinence. MD [address], [place], [address], [facility] 12/09/2021 15:56:06 05/20/2023 text/html Annual GYNReport ed bypatient.History: no gynecologic complaints [address], [place], [address], [facility] 05/20/2023 12:28:51 06/06/2024 text/html Annual GYNReport ed bypatient.History: needs medication refillNotes:Report s concerns for weight gain [address], [place], [address], [facility] 06/07/2024 18:30:13 OBGyn Episode No OBEpisode recorded.
--- OUTSIDE RECORDS SUMMARY | 2024-06-23 08:39 | XMS_ITS | Data Portability ---
Author Organization LILLIE CHRISTA Davis BURDINE CLOSED Address [address] [facility] [address] [place] [address] Care Team Providers Care Screw Machine Setter Name Role Phone GILDA COSTA Primary Care Provider [phone] DEXTER CARRASCO Hook Up Driver Assessment Encounter Date Assessment Date Assessment LastModified by Organization Details LastModified Time 06/12/2020 06/12/2020 MRI cervical spine. [facility]. 05/08/20 ? Moderate to severe central stenosis at C5-6 and C6-7 with deformity of the cord but no signal change ? C3-4 right paracentral disc protrusion that abuts the cord without severe deformity MRI lumbar spine. [facility]. 05/08/20 ? Mild arthritic changes without significant nerve compression or signs of instability Ms. Roman is a 50-year-old female with low back pain, neck pain, and right greater than left upper extremity intermittent numbness/tingli ng. Dr. Hood discussed with her that he would not recommend lumbar surgery at this time. We will refer her to pain management to discuss lumbar injections. We will also have her get lumbar flex/ext x rays to rule out instability. He explained that her cervical MRI shows multiple areas of central stenosis but no critical spinal cord compression. She is not myelopathic. She would prefer to avoid surgery if possible and Dr. Hood agrees this is very reasonable. He discussed with her that if her neck pain or radicular arm symptoms worsen in the future to contact our office. She also understands that worsening gait or decreased dexterity in her hands would be a reason to follow-up with us as well. She understands and agrees with this plan. Seen by Dr. Hood and myself. [email or web address] Not available 06/12/2020 10:03:07 Plan of Treatment Reminders Order Date Submit Date Provider Last Modified By Organization Details Last Modified Time Details Appointments FOLLOW UP [facility] 2025 07:40A M YENNI LOPEZ APPLICATION TESTER Not available Not available Not available Lab None record ed. Referral None record ed. Procedures None record ed. Surgeries None record ed. Imaging None record ed. Medication Orders Pepcid AC 20 mg tablet 2019 020 [email or web address] [id number], [address] [place], [address], 08/03/2019 10:24:08 Patient TargetsNo targets recorded. Patient Instructions Encounter Date Encounter Id Patient Instructions Last Modified By Organization Details Last Modified Time 08/03/2019 [id number] hearing loss: ca re instructions [email or web address] Not available 08/03/2019 13:31:34 08/03/2019 [id number] 1. audiogram obtained- type A tymp, 10 dbs, mild HF SNHL bilaterally 2.Nasopharyngoscop y performed- Did show normal he states tube openings that there was some inflammation of the arytenoid areas that suggest reflux. It's possible to reflux could be controlling some of her upper aerodigestive symptoms. 3. Rx- Pepcid 20 MG take one pill BID. I think this along with some weight loss strategy will be beneficial for her reflux management. She will let us know if she is making progress over the next few months. 4. F/u prn [email or web address] Not available 08/03/2019 10:23:42 Reason for Referral None Reported. Results Created Date Observation Date Name Description Value Unit Range Abnormal Flag Note LastModifiedBy Organization Detail LastModifiedTime 08/04/19 20 08/03/2019 audio gram No observ ation record ed. BARCODE Not Available 2019 12:40:38 06/13/19 21 06/12/2020 XR, lumbo sacra l spine , 2 or 3 view, bendi ng only [place] [facility] [address] [place] [address] Patiaidan t Name: MONIQUE kitchen : 9[address] kitchen Orderi ng Provid er: SUMEET MCGUIREEN EXAM DATE: 2020 EXAM: XR LUMBAR SPINE FLEX/E XT ONLY CLINIC AL INFORM ATION: Back pain. IMAGES PROVID ED: Latera l views of the lumbar spine in flexio n and extens ion. COMPAR BRIAN: None. FINDIN GS: Verteb ral body height s are normal . Multil evel disc space reduct ion is seen with anteri or and latera l osteop hytes. No abnorm ality of alignm ent is seen. No instab ility is seen on flexio n or extens ion. Degene rative change s are seen in the facet joints . No radiog raphic eviden ce of injury is noted. IMPRES MARCOS: Normal radiog raphic series of the lumbar spine. No instab ility. Interp reted By: Zoraida Henry MD Electr onical ly Signed By: Zoraida Henry MD on 06/13/19 11:[address] [facility] [address], [address], 06/21/2020 11:27:52 Result Notes None recorded. Problems No Known Problems Procedures Surgical History Date Name Laterality Status Provider Name and Address Organization Details Recorded Time 025 DAK - Destruction BN Lesions completed Melanie Duffy [facility] 06/21/2024 08:04:20 024 DAK - Destruction BN Lesions completed DEXTER CARRASCO MD [facility] [place], [address], [facility] 12/25/2023 14:25:10 020 Tympanogram completed WILMA PARSONS [address] [place], [address], [facility] 08/03/2019 13:31:06 020 Audiogram completed WILMA PARSONS [address] [place], [address], [facility] 08/03/2019 13:31:05 020 Laryngoscopy Flex completed Eddie Eason [facility] 08/03/2019 10:08:05 06/12/2 018 Tympanogram completed MEAGHAN FERRERA, AUD [address] [place], [address], [facility] 08/18/2017 10:30:07 018 Audiogram completed MEAGHAN FERRERA, AUD [address] [place], [address], [facility] 08/18/2017 10:30:05 Unlisted px dentalvlr strux completed Angelique David [facility] 08/18/2017 10:17:29 Carpal Tunnel Surgery completed Melinda Jackson [facility] 06/12/2020 09:19:30 cholecystectomy completed Rosa Ventura [facility] 12/25/2023 07:50:52 Imaging Results Imaging Date Name Status LastModified by Organiz ation Details LastModified Time 08/03/2019 audiogram completed BARCODE Information no t available 08/04/2019 12:40:38 06/12/2020 XR, lumbosacral spine, 2 or 3 view, bending only completed row4 [facility] [address] [place], [address], 06/21/2020 11:27:52 Procedure Notes None recorded. Medical Equipment None [...] bromide 42 mcg (0.06 %) nasal spray [place] 2 sprays 3 times a day by [...] Not Available Not Available Vitals Date Recorded Heart rate Body temperature Body height Body mass index (BMI) Body weight Systolic blood pressure Diastolic blood pressure Provider Name and Address Organization Details Last Updated DateTime 0 65 /min 98.2 [degF] 157.48 cm 48.5 kg/m2 993687. 98 g 134 mm[Hg] 86 mm[Hg] Angelique David [facility] 0 09:01:12 Date Recorded Body height Body mass index (BMI) Body weight Heart rate Systolic blood pressure Diastolic blood pressure Provider Name and Address Organization Details Last Updated DateTime 1 157.48 cm 45.9 kg/m2 286834. 68 g 77 /min 157 mm[Hg] 102 mm[Hg] Melinda Jackson [facility] 1 09:18:44 Social History Question Answer Notes LastModified by Organizat ion Details LastModified Time Tobacco Smoking Status Current Every Day Smoker Melinda mckeon [facility] 06/12/2020 09:19:05 What Is Your Level Of Alcohol Consumption? Occasional [email or web address] Information not available 08/18/2017 What Was The Date Of Your Most Recent Tobacco Screening? 12/25/2023 [email or web address] Information not available 12/25/2023 Has Tobacco Cessation Counseling Been Provided? No [email or web address] Information not available 08/18/2017 Sex: Female Functional Status None recorded. Mental Status None recorded. Family History Relationship Description Onset Age of this Age Resolved Age Notes LastModified by Organization Details LastModified Time Mother Disorder of thyroid gland [email or web address] Not available 08/18 10:16:19 Mother Hypertensive disorder [email or web address] Not available 08/18 10:16:33 Father Hypertensive disorder [email or web address] Not available 08/18 10:16:41 Father Family history of stroke [email or web address] Not available 08/18 10:16:59 Father Diabetes mellitus [email or web address] Not available 08/18 10:17:07 Maternal Grandfather Malignant melanoma Not available 12/24 07:49:53 Maternal Grandfather Malignant tumor of gallbladder [email or web address] Not available 07:50:06 Medical History Condition Response Kidney Stones N Hyperthyroidism N Heart Arrhythmia N Emphysema N Esophagus/swallowing troubles N Hypothyroidism N Lung Disease N Depression N Glaucoma N Anesthesia Complications N Anxiety Disorder N [...] Disease N Migraines N Thyroid Problems N Acne N Goiter N Skin Problems N Anemia N Immune System Disorder N Chest Pain N Stomach trouble N Heart Attack (VT) N Ulcers N Other Skin Condition N [...] SNOMED-CT Code Diagnosis ICD10 Code Diagnosis Note [id number] FAINA DIAZ MD [place] [facility] [address] [facility] [place] [address] 08/18/2017 09:42:16 08/19/2017 11:57:23 Chronic rhinitis 77663300 J31.0 Dysfunctio n of eustachian tube 78878081 H69.91 Otalgia of right ear 295 1149021 715119 H92.01 [id number] WILMA SEGURA [place] [facility] [address] [facility] [place] [address] 08/18/2017 10:29:12 08/18/2017 10:42:02 Otalgia 62158353 H92.03 Dysfunctio n of eustachian tube 12075655 H69.92 Tinnitus of right ear 48 69116372 108 H93.11 Sensorineu ral hearing loss of bilateral ears 893126080 H90.3 [id number] RON [facility]CKINLEY [facility] [address] [facility] [place] [address] 08/26/2017 09:03:36 08/27/2017 11:29:08 Sensorineural hearing loss of bilateral ears 413569432 H90.3 Hypertroph y of tonsils 43198313 J35.1 mild Dysfunctio n of left eustachian tube 7981454535 595408 H69.92 Temporoman dibular joint disorder 54694029 M26.609 Bilateral tinnitus 65942 55375 102 H93.13 Gastroesop hageal reflux disease without esophagitis 277417324 K21.9 [id number] KRISTA ROJAS III, [place] [facility] [address] [facility] [place] [address] 08/03/2019 08:53:45 08/03/2019 10:58:53 Temporomandibular joint disorder 08981282 M26.609 - Hx of Dysfunctio n of left eustachian tube 9124429371 232422 H69.92 Sensorineu ral hearing loss of bilateral ears 466784512 H90.3 Bilateral tinnitus 26592 82024 102 H93.13 Hypertroph y of tonsils 35178694 J35.1 -Hx of mild Gastroesop hageal reflux disease without esophagitis 821910275 K21.9 - cobbl[place] ing of the pharyngeal mucosa Ear pressu re sensation 531567213 H93.8X9 Seasonal allergy 5647831 04 J30.2 [id number] NINA FRAIRE, [facility] [facility] [place] [address] 08/03/2019 13:30:53 08/03/2019 13:31:59 Bilateral earache 834341727 H92.03 Sensorineu ral hearing loss of bilateral ears 191014604 H90.3 Bilateral tinnitus 15940 59267 102 H93.13 Dysfunctio n of bilateral eustachian tubes 3502957545 330773 H69.93 [id number] SUMEET HOOD MD [facility]OS[facility]G [facility] [address] [place] [address] 06/12/2020 09:09:12 06/14/2020 15:09:50 Lumbar spondylosis 895482436 M47.896 Spinal rickey nosis in cervical region 54960736 M48.02 [id number] [place] [address] 12/25/2023 07:34:12 12/25/2023 08:20:25 Benign neoplasm of skin 59484039 D23.72 - Monitor for color/shap e changes- Favor dark mole/dark lentigo on left thighLesio n is likely benign, rec'd watchful monitoring and reporting change to us Melanocyti c nevus of skin 849159631 D22.5 Benign lesion(s) assessed Solar lentiginosis 83903 2006 L81.4 Benign lesion(s) assessed Zinc and titanium SPF30+ sunscreen recommende d Seborrheic keratosis 394 756764 L82.1 Benign lesion(s) assessed- Recommend OTC AmlactinLe marcos on left flank bothers her but is not symptomati c, she desires removal with cryo Hemangioma of skin 10153 006 D18.01 Benign lesion(s) assessed [id number] KADY Blunt, DUMP WORKER [facility] [address] [place] [address] 06/21/2024 07:32:18 06/21/2024 08:17:08 Inflamed seborrheic keratosis 290419918 L82.0 L53.8 Patient reports she has been picking at this, very irritated and bothersome . Requests removal Counseled on benign nature. Pt elected to treat with liquid nitrogen due to painful irritation . May recur or persist after treatment. Discolorat ion or scarring is possible. Benign layton plasm of skin 23758678 D23.9 No change since last visit 6 [...] Member ID Edwards Member ID Guarantor Name 08/03/2019 2 [facility] [id number] Kristina Roman [id number] Kristina Roman 08/03/2019 2 [facility] [id number] Kristina Figueroa Roman [id number] Kristina Roman 06/12/2020 2 [facility] [id number] Kristina Figueroa Roman [id number] Kristina Roman 12/25/2023 2 [facility] [id number] Kristina Figueroa Roman [id number] Kristina Roman 06/21/2024 1 [facility] [id number] Kristina Roman [id number] Kristina Roman Notes Date Note Type Note Provider Name and Address Organization Details Recorded Time 08/03/2019 text/html Kristina returns today in follow up of bilateral SNHL along with eustachian tube dysfunction. She states that she is not experiencing the severe pressure that she had before but she still experiences a feeling of fulness. She denies a history of loud noise exposure. She does take a Zyrtec daily for allergies. Kristina did try Flonase daily but it made her throat raw. KRISTA ROJAS III, MD [address] [place], [address], [facility] 08/03/2019 10:24:03 06/12/2020 text/html Ms. Roman report s low back pain that began about 2003. She describes pain across her low back that is worse with activity. At times it will radiate somewhat into the right thigh, but she is unable to isolate it to specific dermatome. A far the back pain is more bothersome. She's tried physical therapy and chiropractic treatments in the past without improvement. She also reports neck pain that is worse with turning her neck, especially to look behind her when driving. She also reports numbness and tingling that begins at her elbow and radiates down her right greater than left upper extremity to her hands. The symptoms seem to be worse with typing. She did have a carpal tunnel release in the past they gave her good relief of her symptoms at that time. She denies any issues with her balance. She denies clumsiness in her hands or dropping things often. DONNELL WHEELER PA-C [address] [place] [address], [address], [facility] 06/12/2020 10:03:51 12/25/2023 text/html I am here for my skin check. One spot on left leg and one spot on left abdomen. DEXTER CARRASCO MD [address] [place] [address], [address], [facility] 12/25/2023 14:26:10 06/21/2024 text/html Mole Location: Scalp Duration: Noticed it 1mo ago Previous tx: None Reports: Rough and scaly. Pt is picking at it. She wants it looked at bc she spent her entire childhood outside in the pool and Maternal grandfather had MM on the scalp. Pt picked it off twice and it came back. KADY LOPEZ APRN [address] [place] [address], [address], [facility] 06/21/2024 10:43:45 OBGyn Episode No OBEpisode recorded.
--- OUTSIDE RECORDS SUMMARY | 2024-06-23 08:39 | XMS_ITS | Continuity of Care Document ---
Author Organization [facility] TERRI HAHN MD Address [address] [facility] [address] [place] [address] Assessment Encounter Date Assessment Date Assessment LastModified by Organization Details LastModified Time 06/06/2024 06/06/2024 54 y/o F here today for annual exam. WNWD female in NAD. Reports concerns for weight gain. PMHx includes hyperlipidemia, hypertension, and KRIS. KRIS was confirmed diagnosis via sleep study, pt will send us these results. She will also fax clinic her annual labs drawn by her PCP. FMHx includes HTN (mother and father), and chronic venous insufficiency (mother), KS (father), TIA (father), and hyperlipidemia (father). For [...] HPI. Meds reviewed and accurate. Pleasant mood. [email or web address] Not available 06/07/2024 18:29:07 Plan of Treatment Reminders Order Date Submit Date Provider Last Modified By Organization Details Last Modified Time Details Appointments ANNUAL DOBIE WORKER 2025 09:00A M Ara Hamilton PA-C Not available Not available Not available Lab pap, LB 2024 025 [facility] [address] [place], [address], 06/07/2024 18:08:17 Referral None recorded. Procedures None recorded. Surgeries None recorded. Imaging None recorded. Medication Orders Gemtesa 75 mg tablet 2024 025 [facility], [address] [place] [address] [place], [id number], 06/11/2024 10:45:50 Wegovy 0.25 mg/0.5 mL subcutane ous pen injector 2024 025 [facility], [address] [place] [address] [place], [id number], 06/06/2024 10:49:15 Patient TargetsNo targets recorded. Patient InstructionsNo instructions recorded. Reason for Referral None Reported. Problems Name Problem SNOMED Code Status Onset Date Resolution Date Notes Provider Name and Address Organization Details Recorded Time Overactive urinary bladder 821827867 Active [address], [place], [address], [facility] 4 11:45:07 Obesity 359547536 Active [address], [place], [address], [facility] 5 09:32:37 Hyperlipidemia 78274485 Active [address], [place], [address], [facility] 5 09:33:21 Essential hypertension 25123022 Active [address], [place], [address], [facility] 5 18:29:39 Obstructive sleep apnea syndrome 16625388 Active 2024 Ara Hamilton PA-C [address] , [place], [address], [facility] 18:29:46 Problem [...] 06/06/2024 09:09:51 12/10/19 22 Non-OB ULS completed Terri Hahn MD [address] , [place], [address], [facility] 12/09/2021 15:55:42 03/09/19 21 Colonoscopy completed [facility] 05/20/2023 11:20:36 Imaging Results None recorded. Procedure Notes None recorded. Medical Equipment None Reported. Allergies Allergen ID Allergen Name Allergen Category Reaction Reaction Severity Criticality Documentation Date Start Date Code Code System Note Provider Name and Address Organization Details Recorded Time 766 Demerol medicatio n hives severe Not available 10/30/2021 64901 1 RxNorm [facility]IE [facility] 2 09:33:20 Medications Name Sig [...] #ofRe fills: 30 Drug Identifi cation Code: 124870 F ree Text SIG: Myrbetri q 25MG, [...] Updated DateTime 06/06/2024 162.56 cm 42.7 kg/m2 818041.5 g 124 mm[Hg] 82 mm[Hg] [facility] 5 09:09:05 Social History Question Answer Notes LastModified by Organizat ion Details LastModified Time Tobacco Smoking Status Current Every Day Smoker 10 a day at most [facility] 06/06/2024 09:10:54 What Is Your Level Of Alcohol Consumption? Occasional [email or web address] Information not available 10/30/2021 Do You Use Protection During Sex? No [email or web address] Information not available 10/30/2021 What Is Your Relationship Status? [email or web address] Information not available 10/30/2021 Are You Sexually Active? Yes [email or web address] Information not available 10/30/2021 Do You Use Any Illicit Or Recreational Drugs? No [email or web address] Information not available 10/30/2021 Do You Or Have You Ever Used Any Other Forms Of Tobacco Or Nicotine? No [email or web address] Information not available 10/30/2021 Do You Have [...] SNOMED-CT Code Diagnosis ICD10 Code Diagnosis Note [id number] AYO Lacey MD [address] [place] [address] 06/06/2024 08:45:12 06/13/2024 13:01:29 Routine gynecologic examination done 3452314303 9101 Z01.419 Overactive urinary bladder 676021901 N32.81 Hyperlipidemia 39637059 E78.2 Obesity 707442797 E66.01 Family his tory of hyperlipidemia 262262467 Z83.49 Family his tory of Hypertension 846176030 Z82.49 Family his tory of Myocardial infarction 386572889 Z82.49 Essential hypertension 71767192 I10 Obstructiv e sleep apnea syndrome 32356046 G47.33 Health Concerns Section Related Observation LastModified by Organization Detai ls LastModified Time None Recorded Concern Status LastModified by Organization Details LastModified Time None Recorded Payers Encounter Date Sequence Insurance Name Policy Number Policy Edwards Covered Member ID Edwards Member ID Guarantor Name 06/06/2024 1 [facility] [id number] Kristina Roman [id number] Kristina Roman Notes Date Note Type Note Provider Name and Address Organization Details Recorded Time 06/06/2024 text/html Annual GYNReport ed bypatient.History: needs medication refillNotes:Report s concerns for weight gain Ara Hamilton PA-C [address] [place] [address], [place], [address], [facility] 06/07/2024 18:30:13 OBGyn Episode No OBEpisode recorded.
[2024-06-23 08:55] VITALS: BMI 43.9
[2024-06-23 08:58] VITALS: BP 112/69; PULSE 74; RESP 16; O2SAT 96
[2024-06-23] MEDS: IVABRADINE HCL 7.5MG TABLET PO (09:05)
[2024-06-23] MEDS: METOPROLOL TARTRATE 50MG TABLET PO (09:05)
[2024-06-23 09:28] LABS: Chloride 101 mmol/L (98-107)
[2024-06-23 09:29] LABS: Potassium 5.8 mmoL/L (3.5-5.1); Sodium 138 mmol/L (136-145)
[2024-06-23 09:32] LABS: Anion Gap 11.8 mEq/L (5-15); Blood Urea Nitrogen 22 mg/dl (7-17); Carbon Dioxide 31 mmol/L (22.0-30.0); Creatinine Clearance Estimated 88 mL/min (50-200); Estimated Glomerular Filt Rate 104 ml/min (>60); GFR (African American) 126 ML/MIN (>60); Glucose 105 mg/dl (74-100)
[2024-06-23 09:46] VITALS: BP 126/66; PULSE 60; RESP 16; O2SAT 95
[2024-06-23] MEDS: NITROGLYCERIN 0.4MG SL TABLET SL (09:46)
[2024-06-23 09:49] VITALS: BP 94/47; PULSE 54; RESP 16; O2SAT 95
--- NOTE | 2024-06-23 10:00 | CT_ITS ---
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 A noncontrast coronary calcium scan was performed. A CT attenuation threshold of 130 Hounsfield units (HU) was used for the detection of calcium in contiguous voxels of 1 sq mm in area to be counted as individual lesions. Bolus tracking in the ascending aorta with a threshold of 180 HU was performed. Immediately afterwards, ECG synchronized cardiac CT was then performed from the cardiac base to apex using retrospective gating with ECG tube current modulation. A total of 85 mL of Isovue 370 mg/mL contrast medium was administered at 5 mL/sec followed by a saline flush using a biphasic injection protocol. A tube voltage of 120 KVp was used. The patient received the following medications prior to the cardiac CT. 50 mg of oral metoprolol 15 mg of oral ivabradine 0.4 mg of sublingual nitroglycerin The average heart rate at the time of acquisition was 52 bpm and regular. Image Reconstruction Transaxial images were reconstructed at 0.67 mm slide thickness. Data was reviewed interactively on an advanced workstation capable of 2 and 3-dimensional displays in all conventional reconstruction formats, including multiplanar reformations, maximum intensity projections, curved multiplanar reformations, and volume rendered reconstructions. When applicable, selected routine images describing the relevant coronary anatomy and pathology were saved and sent to PACS. Complications None Technical Quality Overall image quality was good. Coronary artery opacification was adequate. Total DLP (Dose-Length Product) is 1400.2 mGy-cm. The reported value represents the total of one or more individual components during the CT acquisition of this date and at this time, and as such, the same value may appear in more than one CT report depending on the interpreting/reporting physicians. COMPARISON None FINDINGS CT Coronary Calcium Scoring LMA (Left Main Artery) = 0 LAD (Left Anterior Descending) = 0 LCX (Left Coronary Circumflex) = 0 RCA (Right Coronary Artery) = 0 Total Calcium Score = 0 using the AJ-130 method. The interpretation of the calcium heart score is based on the following continuum*: 0 = no calcified plaque detected (risk of coronary artery disease is very low ??? less than 5%) 1-10 = calcium detected in extremely minimal levels (risk of coronary diseases is still low ??? less than 10%) 11-100 = mild levels of plaque detected with certainty (mild or minimal narrowing of heart arteries is likely) 101-400 = definite,at least moderate levels of plaque detected (relatively high risk of a heart attack within 3-5 years) >401-999 = extensive levels of plaque detected (high risk of heart attack, high levels of vascular disease are present, high likelihood of at least one significant coronary narrowing) *The calcium heart score quantifies the burden of coronary calcification/plaque in the coronary arteries. The calcium heart score is not able to evaluate the presence or burden of non-calcified (i.e. soft) plaque. There is no identifiable calcification in the aortic valve, mitral annulus or mitral valve, pericardium, or myocardium. Coronary CT Angiography The coronary arterial system is right dominant. Quantitative Stenosis Grading: Left Main (LM): The left main originates normally from the left sinus of Valsalva. The LM bifurcates into the left anterior descending artery and left circumflex artery. The LM is patent with no evidence of atherosclerosis. Left Anterior Descending (LAD) and Diagonal Branches: The LAD gives off 2 diagonal branch(es). The LAD and its branches are patent with no evidence of atherosclerosis. There is no evidence of LAD-myocardial bridge. Left Circumflex (LCX) and Obtuse Marginals (OM): The LCX gives off 1 Obtuse Marginal (OM) branch(es). The LCX and its branches are patent with no evidence of atherosclerosis. Right Coronary Artery (RCA): The RCA originates normally from the right sinus of Valsalva. The RCA gives off a posterior descending artery (PDA) and posterolateral (PL) branches. The RCA and its branches are patent with no evidence of atherosclerosis. Non-Coronary Cardiac Findings: Analysis of the left ventricular (LV) structure and function was performed after 3-D reconstruction of the LV from axial images, with user-corrected automatic contouring for assessment of LV volumes and user-defined reconstruction from oblique planes for measurement of 3-D cardiac structure and function. -The left ventricle systolic function is normal. -There is no left atrial appendage filling defect. Two right pulmonary veins and two left pulmonary veins drain normally into the left atrium. -No pericardial thickening or calcification. -Central and branch pulmonary arteries in the stguk-oa-cult are unremarkable. -Thoracic aorta within the visualized thoracic aortic-branches in the [id number]-uakm is unremarkable. Extracardiac Structures No significant extra-cardiac findings. Note, however, that this study is focused on the cardiac findings. IMPRESSION -Absence of coronary calcification with an Agatston score = 0 using the AJ-130 method. -No evidence of significant flow-limiting atherosclerosis of the coronary arteries. -CAD-RADS 0. Management recommendations per ACC/AHA guidelines*, as clinically appropriate. *Recommendations: CAD RADS 0: Reassurance. Consider non-atherosclerotic causes of chest pain. CAD RADS 1: Consider non-atherosclerotic causes of chest pain. Consider preventive therapy and risk factor modification. CAD RADS 2: Consider non-atherosclerotic causes of chest pain. Consider preventive therapy and risk factor modification, particularly for patients with nonobstructive plaque in multiple segments. CAD RADS 3: Consider further functional testing. Consider symptom-guided anti-ischemic and preventive pharmacotherapy as well as risk factor modification per published guideline statements. CAD RADS 4A: Consider further functional testing or invasive coronary angiography with revascularization per published guideline statements. Consider symptom-guided anti-ischemic and preventive pharmacotherapy as well as risk factor modification per published guideline statements. CAD RADS 4B: Invasive coronary angiography recommended with revascularization per published guideline statements. Consider symptom-guided anti-ischemic and preventive pharmacotherapy as well as risk factor modification per published guideline statements. CAD RADS 5: Consider invasive angiography and/or viability assessment with revascularization per published guideline statements. Consider symptom-guided anti-ischemic and preventive pharmacotherapy as well as risk factor modification per published guideline statements. CRITICAL RESULT None COMMUNICATION Per this written report The coronary and cardiac findings of this CCTA were reviewed, reported, and signed by Rafita Barnard MD ([employer] Tender) Conclusion Electronically signed by : Maribel Barnard MD 06/24/2024 21:25:24
[2024-06-23] MEDS: 0.9 % SODIUM CHLORIDE 50 ML VIAL IV (10:02)
[2024-06-23] MEDS: IOPAMIDOL-370 (76%);100ML BOTTLE 85 ML IV (10:03)
[2024-06-23] MEDS: SODIUM CHLORIDE 0.9% 10ML SYR (RAD ONLY) 10 ML IV (10:03)
[2024-06-23 10:05] VITALS: BP 117/61; PULSE 60; RESP 16; O2SAT 96
== END 2024-06-23 10:13 | disposition home or self-care (01) ==
PROVIDERS: PCP Nurse Practitioner Family; Referring Provider Family Medicine; Visit Provider Internal Medicine
DX: R07.89 Other chest pain (principal); I10 Essential (primary) hypertension; Z82.49 Family history of ischemic heart disease and other diseases of the circulatory system; R06.02 Shortness of breath; E78.5 Hyperlipidemia, unspecified
CPT/HCPCS: 75574; 80048; Q9967

== ENCOUNTER 2024-06-24 08:36 | Outpatient (CLI) | payer OTHER, SELFPAY ==
--- NOTE | 2024-06-24 | CA_ITS ---
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 145.0 (50-130 cm/s) AO Peak GR. 8.40 mmHg AO Mean GR. 4.70 (<5 mmHg) AO VTI 37.8 (18-25 cm) GILLIAN (VTI) 2.21 (2.5-4.5 cm2) Mitral Valve MV E Max Cuauhtemoc. 89.0 (40-130 cm/s) MV A Velocity 107.0 (40-130 cm/s) E/A Ratio 0.83 MV PHT 61.0 ms Pulmonary Valve PV Peak Velocity 68.0 (50-150 cm/s) Tricuspid Valve TR P. Velocity 263.00 cm/s RAP Estimate 10.00 mmHg RVSP 37.70 mmHg Left Ventricle The left ventricle is normal size. The left ventricular systolic function is normal. The left ventricular ejection fraction is within the normal range. There is increased LV wall thickness. There is normal LV segmental wall motion. Transmitral Doppler flow pattern suggests impaired LV relaxation. LVEF is 55%. Right Ventricle Right ventricle is mildly dilated. The right ventricular systolic function is normal. Atria The left atrium size is normal. The right atrium size is normal. There is no Doppler evidence of interatrial shunt. Aortic Valve Aortic valve is mildly thickened. Trace aortic regurgitation. There is no aortic valvular stenosis. Mitral Valve The mitral valve is normal in structure. No evidence of mitral valve stenosis. Trace mitral regurgitation. Tricuspid Valve Tricuspid valve is grossly normal in structure and function. Mild tricuspid regurgitation. RVSP is 20-25 mmHg. Pulmonic Valve The pulmonary valve is normal in structure. Trace pulmonic regurgitation. Great Vessels The aortic root is normal in size. IVC is normal in size and collapses >50% with inspiration. Pericardium There is no pericardial effusion. Other Information Study Quality: Fair Conclusion Normal biventricular systolic function. Mild RV dilation. Mild TR. Electronically signed by : Maribel Barnard MD 06/27/2024 22:46:53
== END 2024-06-24 23:59 | disposition home or self-care (01) ==
LOC: RT 08:36
PROVIDERS: PCP Nurse Practitioner Family; Visit Provider Internal Medicine
DX: I51.7 Cardiomegaly (principal); I36.1 Nonrheumatic tricuspid (valve) insufficiency; R06.02 Shortness of breath; R53.83 Other fatigue; R06.09 Other forms of dyspnea; Z82.49 Family history of ischemic heart disease and other diseases of the circulatory system; E78.5 Hyperlipidemia, unspecified
CPT/HCPCS: 93306

== ENCOUNTER 2024-07-13 06:49 | Outpatient (CLI) | payer OTHER, SELFPAY ==
--- OUTSIDE RECORDS SUMMARY | 2024-07-13 06:52 | XMS_ITS | Continuity of Care Document ---
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 Plan of Treatment Reminders Order Date Submit Date Provider Last Modified By Organization Details Last Modified Time Details Appointments FOLLOW UP [facility] 2025 07:40A M YENNI LOPEZ NP [...] - Destruction BN Lesions completed Melanie Duffy [facility] 06/21/2024 08:04:20 024 DAK - Destruction BN Lesions completed DEXTER CARRASCO MD [address] [place], [address], [facility] 12/25/2023 14:25:10 020 Tympanogram completed WILMA PARSONS [address] [place], [address], [facility] 08/03/2019 13:31:06 020 Audiogram completed WILMA PARSONS [address] [place], [address], [facility] 08/03/2019 13:31:05 020 Laryngoscopy Flex completed Eddiemichael Eason [facility] 08/03/2019 10:08:05 018 Tympanogram completed MEAGHAN FERRERA, AUD [address] [place], [address], [facility] 08/18/2017 10:30:07 018 Audiogram completed MEAGHAN FERRERA, AUD [address] [place], [address], [facility] 08/18/2017 10:30:05 Unlisted px dentalvlr strux completed Angelique David [facility] 08/18/2017 10:17:29 Carpal Tunnel Surgery completed Melinda Jackson [facility] 06/12/2020 09:19:30 cholecystectomy completed Rosa Ventura [facility] 12/25/2023 07:50:52 Imaging Results None recorded. Procedure [...] bromide 42 mcg (0.06 %) nasal spray Clover 2 sprays 3 times a day by [...] Status Current Every Day Smoker Melinda mckeon, [facility] 06/12/2020 09:19:05 What Is Your Level Of Alcohol Consumption? Occasional [email or web address] Information not available 08/18/2017 What Was The Date Of Your Most Recent Tobacco Screening? 12/25/2023 [email or web address] Information not available 12/25/2023 Has Tobacco Cessation Counseling Been Provided? No [email or web address] Information not available 08/18/2017 Sex: Female Functional Status None recorded. Mental Status None recorded. Family History Relationship Description Onset Age of this Age Resolved Age Notes LastModified by Organization Details LastModified Time Mother Disorder of thyroid gland [email or web address] Not available 08/18 10:16:19 Mother Hypertensive disorder [email or web address] Not available 08/18 10:16:33 Father Hypertensive disorder [email or web address] Not available 08/18 10:16:41 Father Family history of stroke [email or web address] Not available 08/18 10:16:59 Father Diabetes mellitus [email or web address] Not available 08/18 10:17:07 Maternal Grandfather Malignant melanoma [email or web address] Not available 12/24 07:49:53 Maternal Grandfather Malignant tumor of gallbladder [email or web address] Not available 07:50:06 Medical History Condition Response Kidney Stones N Hyperthyroidism N Heart Arrhythmia N Emphysema N Esophagus/swallowing troubles N Depression N Glaucoma N Hypothyroidism N Lung Disease N Anesthesia Complications N Varicose Veins Y Anxiety Disorder N Autoimmune disease N Arthritis N Hearing Loss N Acid Reflux (GERD) N Cancer N Stroke N Melanoma N Hoarseness N Alcohol Overuse/Alcohol Abuse N High Cholesterol Y Skin Cancer N Snoring problems N Liver Disease N Fibromyalgia Y Headaches N Kidney Disease N Allergies/Hayfever N Heart Problems N Squamous Cell Carcinoma N Mental handicap N Ear or Hearing Problems N Gallbladder Disease N Migraines N Thyroid Problems N Goiter N Acne N Skin Problems N Anemia N Immune System Disorder N Chest Pain N Stomach trouble N Ulcers N Heart Attack (OR) N Other Skin Condition N Diabetes N [...] SNOMED-CT Code Diagnosis ICD10 Code Diagnosis Note [id number] KADY MAGDALENO R, 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 Requests removal Counseled on benign nature. Pt elected to treat with liquid nitrogen due to painful irritation . May recur or persist after treatment. Discolorat ion or scarring is possible. Benign layton plasm of skin [id number] D23.9 No change since last visit 6 [...] ID Guarantor Name 06/21/2024 1 [facility] [id number] Kristina Roman [id number] Kristina Carolina Abel Notes Date Note Type [...] twice and it came back. KADY LOPEZ, ST[employer]LESS STEEL FINISHER [address] [place], [address], [facility] 06/21/2024 10:43:45 OBGyn Episode No OBEpisode recorded.
--- OUTSIDE RECORDS SUMMARY | 2024-07-13 06:52 | XMS_ITS | Data Portability ---
Author Organization LILLIE CHRISTA Davis TALLULAH CLOSED Address [address] [facility] [address] [place] [address] Care Team Providers Care Green Inspector Name Role Phone GILDA COSTA Primary Care Provider DEXTER CARRASCO Radiological Technician Assessment Encounter Date Assessment Date Assessment LastModified by Organization Details LastModified Time 06/12/2020 06/12/2020 MRI cervical spine. [facility]. 05/08/20 ? Moderate to severe central stenosis at C5-6 and C6-7 with deformity of the cord but no signal change ? C3-4 right paracentral disc protrusion that abuts the cord without severe deformity MRI lumbar spine. [facility]. 05/08/20 ? Mild arthritic changes without significant nerve compression or signs of instability Ms. Roman is a 50-year-old female with low back pain, neck pain, and right greater than left upper extremity intermittent numbness/tingli ng. Dr. Tolentino discussed with her that he would not [...] to avoid surgery if possible and Dr. Tolentino agrees this is very reasonable. He discussed with her that if her neck pain or radicular arm symptoms worsen in the future to contact our office. She also understands that worsening gait or decreased dexterity in her hands would be a reason to follow-up with us as well. She understands and agrees with this plan. Seen by Dr. Tolentino and myself. [email or web address] Not available 06/12/2020 10:03:07 Plan of Treatment Reminders Order Date Submit Date Provider Last Modified By Organization Details Last Modified Time Details Appointments FOLLOW UP [facility] 2025 07:40A M YENNI LOPEZ COPER HAND Not available Not available Not available Lab None record ed. Referral None record ed. Procedures None record ed. Surgeries None record ed. Imaging None record ed. Medication Orders Pepcid AC 20 mg tablet 2019 020 [email or web address] [id number], [address] [place], [address], 08/03/2019 10:24:08 Patient TargetsNo targets recorded. Patient Instructions Encounter Date Encounter Id Patient Instructions Last Modified By Organization Details Last Modified Time 08/03/2019 [id number] hearing loss: ca re instructions [email or web address] Not available 08/03/2019 13:31:34 08/03/2019 [id number] 1. audiogram obtained- type A tymp, 10 [...] the next few months. 4. F/u prn [email or web address] Not available 08/03/2019 10:23:42 Reason for Referral None Reported. Results Created Date Observation Date Name Description Value Unit Range Abnormal Flag Note LastModifiedBy Organization Detail LastModifiedTime 08/04/19 20 08/03/2019 audio gram No observ ation record ed. BARCODE Not Available 2019 12:40:38 06/13/19 21 06/12/2020 XR, lumbo sacra l spine , 2 or 3 view, bendi ng only [facility] [facility] [address] [facility] [place] [address] Patiaidan t Name: MONIQUE kitchen : [phone] [...] Zoraida Henry MD on 06/13/19 11:[address] [facility] [address], [address], 06/21/2020 11:27:52 Result Notes None recorded. Problems No Known Problems Procedures Surgical History Date Name Laterality Status Provider Name and Address Organization Details Recorded Time 025 DAK - Destruction BN Lesions completed Melanie Duffy [facility] 06/21/2024 08:04:20 024 DAK - Destruction BN Lesions completed DEXTER CARRASCO MD [facility] [place], [address], [facility] 12/25/2023 14:25:10 020 Tympanogram completed WILMA PARSONS [address] [place], [address], [facility] 08/03/2019 13:31:06 020 Audiogram completed WILMA PARSONS [address] [place], [address], [facility] 08/03/2019 13:31:05 020 Laryngoscopy Flex completed Eddie Eason [facility] 08/03/2019 10:08:05 06/12/2 018 Tympanogram completed MEAGHAN FERRERA, AUD [address] [place], [address], [facility] 08/18/2017 10:30:07 018 Audiogram completed MEAGHAN FERRERA, AUD [address] [place], [address], [facility] 08/18/2017 10:30:05 Unlisted px dentalvlr strux completed Angelique David [facility] 08/18/2017 10:17:29 Carpal Tunnel Surgery completed Melinda Jackson [facility] 06/12/2020 09:19:30 cholecystectomy completed Rosa Ventura [facility] 12/25/2023 07:50:52 Imaging Results Imaging Date Name Status LastModified by Organiz ation Details LastModified Time 08/03/2019 audiogram completed BARCODE Information no t available 08/04/2019 12:40:38 06/12/2020 XR, lumbosacral spine, 2 or 3 view, bending only completed row4 [facility] Radiology [facility] [address] [place], [address], 06/21/2020 11:27:52 Procedure Notes None recorded. Medical [...] bromide 42 mcg (0.06 %) nasal spray [place] 2 sprays 3 times a day by [...] /min 98.2 [degF] 157.48 cm 48.5 kg/m2 743630. 98 g 134 mm[Hg] 86 mm[Hg] Angelique David [facility] 0 09:01:12 Date Recorded Body height Body mass index (BMI) Body weight Heart rate Systolic blood pressure Diastolic blood pressure Provider Name and Address Organization Details Last Updated DateTime 1 157.48 cm 45.9 kg/m2 807047. 68 g 77 /min 157 mm[Hg] 102 mm[Hg] Melinda Jackson [facility] 1 09:18:44 Social History Question Answer Notes LastModified by Organizat ion Details LastModified Time Tobacco Smoking Status Current Every Day Smoker eMlinda mckeon [facility] 06/12/2020 09:19:05 What Is Your Level Of Alcohol Consumption? Occasional [email or web address] Information not available 08/18/2017 What Was The Date Of Your Most Recent Tobacco Screening? 12/25/2023 [email or web address] Information not available 12/25/2023 Has Tobacco Cessation Counseling Been Provided? No [email or web address] Information not available 08/18/2017 Sex: Female Functional Status None recorded. Mental Status None recorded. Family History Relationship Description Onset Age of this Age Resolved Age Notes LastModified by Organization Details LastModified Time Mother Disorder of thyroid gland [email or web address] Not available 08/18 10:16:19 Mother Hypertensive disorder [email or web address] Not available 08/18 10:16:33 Father Hypertensive disorder [email or web address] Not available 08/18 10:16:41 Father Family history of stroke [email or web address] Not available 08/18 10:16:59 Father Diabetes mellitus [email or web address] Not available 08/18 10:17:07 Maternal Grandfather Malignant melanoma [email or web address] Not available 12/24 07:49:53 Maternal Grandfather Malignant tumor of gallbladder [email or web address] Not available 07:50:06 Medical History Condition Response Kidney Stones N Hyperthyroidism N Heart Arrhythmia N Emphysema N Esophagus/swallowing troubles N Depression N Lung Disease N Hypothyroidism N Glaucoma N Anesthesia Complications N Varicose Veins Y Anxiety Disorder N Autoimmune disease N Arthritis N Hearing Loss N Acid Reflux (GERD) N Cancer N Melanoma N Stroke N Hoarseness N Alcohol Overuse/Alcohol Abuse N High Cholesterol Y Skin Cancer N Liver Disease N Snoring problems N Headaches N Fibromyalgia Y Kidney Disease N Allergies/Hayfever N Heart Problems N Squamous Cell Carcinoma N Mental handicap N Ear or Hearing Problems N Gallbladder Disease N Migraines N Thyroid Problems N Goiter N Acne N Skin Problems N Anemia N Immune System Disorder N Chest Pain N Stomach trouble N Ulcers N Heart Attack (NH) N Other Skin Condition N Diabetes N [...] SNOMED-CT Code Diagnosis ICD10 Code Diagnosis Note [id number] FAINA DIAZ MD [place] [facility] [address] [facility] [place] [address] 08/18/2017 09:42:16 08/19/2017 11:57:23 Chronic rhinitis 92670274 J31.0 Dysfunctio n of eustachian tube 69216377 H69.91 Otalgia of right ear 701 3370358 242836 H92.01 [id number] WILMA SEGURA [place] [facility] [address] [facility] [place] [address] 08/18/2017 10:29:12 08/18/2017 10:42:02 Otalgia 72396937 H92.03 Dysfunctio n of eustachian tube 28948191 H69.92 Tinnitus of right ear 48 46567952 108 H93.11 Sensorineu ral hearing loss of bilateral ears 233855195 H90.3 [id number] RON MCKINLEY MD [place] [facility] [address] [facility] [place] [address] 08/26/2017 09:03:36 08/27/2017 11:29:08 Sensorineural hearing loss of bilateral ears 370406557 H90.3 Hypertroph y of tonsils 44192074 J35.1 mild Dysfunctio n of left eustachian tube 2208647205 330295 H69.92 Temporoman dibular joint disorder 25676966 M26.609 Bilateral tinnitus 74709 07916 102 H93.13 Gastroesop hageal reflux disease without esophagitis 156232614 K21.9 [id number] KRISTA ROJAS III, MD [place] [facility] [address] [facility] [place] [address] 08/03/2019 08:53:45 08/03/2019 10:58:53 Temporomandibular joint disorder 32459850 M26.609 - Hx of Dysfunctio n of left eustachian tube 8357399893 276360 H69.92 Sensorineu ral hearing loss of bilateral ears 957824672 H90.3 Bilateral tinnitus 72531 41337 102 H93.13 Hypertroph y of tonsils 49740021 J35.1 -Hx of mild Gastroesop hageal reflux disease without esophagitis 745192184 K21.9 - [place] ing of the pharyngeal mucosa Ear pressu re sensation 247868757 H93.8X9 Seasonal allergy 2634590 04 J30.2 [id number] NINA FRAIRE, [facility] [place] [facility] [facility] [place] [address] 08/03/2019 13:30:53 08/03/2019 13:31:59 Bilateral earache 951100711 H92.03 Sensorineu ral hearing loss of bilateral ears 883842307 H90.3 Bilateral tinnitus 33459 23878 102 H93.13 Dysfunctio n of bilateral eustachian tubes 4503671814 490092 H69.93 [id number] DONNELL WHEELER PA-C [facility] [address] [place] [address] 06/12/2020 09:09:12 06/14/2020 15:09:50 Lumbar spondylosis 685919736 M47.896 Spinal rickey nosis in cervical region 54713561 M48.02 [id number] DEXTER CARRASCO MD [facility] [address] [place] [address] 12/25/2023 07:34:12 12/25/2023 08:20:25 Benign neoplasm of skin 04765838 D23.72 - Monitor for color/shap e changes- Favor dark mole/dark lentigo on left thighLesio n is likely benign, rec'd watchful monitoring and reporting change to us Melanocyti c nevus of skin 176266547 D22.5 Benign lesion(s) assessed Solar lentiginosis 26228 2006 L81.4 Benign lesion(s) assessed Zinc and titanium SPF30+ sunscreen recommende d Seborrheic keratosis 394 666720 L82.1 Benign lesion(s) assessed- Recommend OTC AmlactinLe marcos on left flank bothers her but is not symptomati c, she desires removal with cryo Hemangioma of skin 76384 006 D18.01 Benign lesion(s) assessed [id number] KADY Blunt, RECORDS MANAGEMENT MANAGER [facility] [address] [place] [address] 06/21/2024 07:32:18 06/21/2024 08:17:08 Inflamed seborrheic keratosis 311165121 L82.0 L53.8 Patient reports she has been picking at this, very irritated and bothersome . Requests removal Counseled on benign nature. Pt elected to treat with liquid nitrogen due to painful irritation . May recur or persist after treatment. Discolorat ion or scarring is possible. Benign layton plasm of skin 78393255 D23.9 No change since last visit 6 [...] Recorded Advance Directives Directive None Recorded Payers Insurance Date Sequence Insurance Name Policy Number Policy Edwards Covered Member ID Edwards Member ID Guarantor Name 06/21/2024 1 [facility] [id number] Kristina Roman [id number] Kristina Roman 06/21/2024 2 [facility] [id number] Kristina Roman [id number] Kristina Roman Notes Date Note Type Note [...] throat raw. KRISTA ROJAS III, MD [address] [facility] [place], [address], [facility] 08/03/2019 10:24:03 06/12/2020 text/html Ms. Roman [...] or dropping things often. DONNELL WHEELER PA-C [address] [place], [address], [facility] 06/12/2020 10:03:51 12/25/2023 text/html I am here for my skin check. One spot on left leg and one spot on left abdomen. DEXTER CARRASCO MD [address] [place], [address], [facility] 12/25/2023 14:26:10 06/21/2024 text/html Mole Location: Scalp Duration: Noticed it 1mo ago Previous tx: None Reports: Rough and scaly. Pt is picking at it. She wants it looked at bc she spent her entire childhood outside in the pool and Maternal grandfather had MM on the scalp. Pt picked it off twice and it came back. KADY LOPEZ APRN [address] [place], [address], [facility] 06/21/2024 10:43:45 OBGyn Episode No OBEpisode recorded.
[2024-07-13 14:27] LABS: Anion Gap 10.5 mEq/L (5-15); Blood Urea Nitrogen 30 mg/dl (7-17); Calcium 9.5 mg/dl (8.4-10.2); Carbon Dioxide 28 mmol/L (22.0-30.0); Chloride 102 mmol/L (98-107); Estimated Glomerular Filt Rate 74 ml/min (>60); GFR (African American) 90 ML/MIN (>60); Glucose 109 mg/dl (74-100); Potassium 3.5 mmoL/L (3.5-5.1); Sodium 137 mmol/L (136-145)
== END 2024-07-13 23:59 | disposition home or self-care (01) ==
LOC: LAB 06:50
PROVIDERS: PCP Nurse Practitioner Family; Visit Provider Nurse Practitioner Family
DX: E87.5 Hyperkalemia (principal)
CPT/HCPCS: 36415; 80048

== ENCOUNTER 2024-08-18 13:09 | Outpatient (CLI) | payer OTHER, SELFPAY ==
--- NOTE | 2024-08-18 14:00 | CT_ITS ---
FINAL REPORT TECHNIQUE: Axial images were obtained from the lung apex to the mid abdomen by computed tomography. This study was performed with techniques to keep radiation doses as low as reasonably achievable (ALARA). Individualized dose reduction techniques using automated exposure control or adjustment of mA and/or kV according to the patient's size were employed. CLINICAL HISTORY: lung cancer screening current smoker 1/2 ppd x 37 years COMPARISON: 08/21/2023 FINDINGS: CHEST CT LOW DOSE CTDI vol (mGy): 2.90 DLP (mGy-cm): 96.38 There is no axillary adenopathy. There is no hilar or mediastinal adenopathy. The heart is normal in size. There is no pericardial or pleural effusion. There is a tiny fissural node along the left major fissure measuring 4 mm well-seen on image 38 of series 4. Limited images of the upper abdomen are unremarkable. IMPRESSION: Fissural node along the left major fissure measures 4 mm. Lung RADS category 2. Recommend 12 month follow-up low-dose chest CT. Reviewed, Interpreted and Dictated by Bart Kaba MD Transcribed by Elvie Campuzano Authenticated and . [facility]
--- OUTSIDE RECORDS SUMMARY | 2024-08-18 14:12 | XMS_ITS | Data Portability ---
Author Organization [facility]ILL[facility] CHRISTA [facility] Address [address] [place] [address] Care Team Providers Care Cna Gna Name Role Phone GILDA COSTA Primary Care Provider [phone] DEXTER CARRASCO [employer] Assessment Encounter Date Assessment Date Assessment LastModified by Organization Details LastModified Time 06/12/2020 06/12/2020 MRI cervical spine. [facility]. 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 [facility]. 05/08/20 Mild arthritic changes without significant nerve compression [...] plan. Seen by Dr. Tolentino and myself. [email or web address] Not available 06/12/2020 10:03:07 Plan of Treatment Reminders Order Date Submit Date Provider Last Modified By Organization Details Last Modified Time Details Appointments [facility] 2025 07:40A M YENNI LOPEZ [employer] Not available Not available Not available Lab None record ed. Referral None record ed. Procedures None record ed. Surgeries None record ed. Imaging None record ed. Medication Orders Pepcid AC 20 mg tablet 2019 020 [email or web address] [id number], [address] [place], [address], 08/03/2019 10:24:08 Patient TargetsNo targets recorded. Patient Instructions Encounter Date Encounter Id Patient Instructions Last Modified By Organization Details Last Modified Time 08/03/2019 [id number] hearing loss: ca re instructions [email or web address] Not available 08/03/2019 13:31:34 08/03/2019 [id number] 1. audiogram obtained- type A tymp, 10 [...] the next few months. 4. F/u prn [email or web address] Not available 08/03/2019 10:23:42 Reason for Referral None Reported. Results Created Date Observation Date Name Description Value Unit Range Abnormal Flag Note LastModifiedBy Organization Detail LastModifiedTime 08/04/19 20 08/03/2019 audio gram No observ ation record ed. BARCODE Not Available 2019 12:40:38 06/13/19 21 06/12/2020 XR, lumbo sacra l spine , 2 or 3 view, bendi ng only [place] [facility] [address] [facility] [place] [address] Patiaidan t Name: MONIQUE kitchen : 970 Pat[place] t Orderi ng Provid er: SUMEET [place] ERWIN EXAM DATE: 2020 EXAM: XR LUMBAR SPINE [...] Zoraida Henry MD on 06/13/19 11:15 AM [email or web address] [facility] [address] [place] [address], [phone], 06/21/2020 11:27:52 Result Notes None recorded. Problems No Known Problems Procedures Surgical History Date Name Laterality Status Provider Name and Address Organization Details Recorded Time 025 DAK - Destruction BN Lesions completed Melanie Duffy [facility] 06/21/2024 08:04:20 024 DAK - Destruction BN Lesions completed DEXTER CARRASCO MD [address] [place], [address], [facility] 12/25/2023 14:25:10 020 Tympanogram completed WILMA PARSONS [address] [place], [address], [facility] 08/03/2019 13:31:06 020 Audiogram completed WILMA PARSONS [address] [place], [address], [facility] 08/03/2019 13:31:05 020 Laryngoscopy Flex completed Eddie Eason [facility] 08/03/2019 10:08:05 018 Tympanogram completed MEAGHAN FERRERA, AUD [address] [place], [address], [facility] 08/18/2017 10:30:07 018 Audiogram completed MEAGHAN FERRERA, AUD [address] [place], [address], [facility] 08/18/2017 10:30:05 Unlisted px [email or web address] strux completed Angelique David [facility] 08/18/2017 10:17:29 Carpal Tunnel Surgery completed Melinda Jackson [facility] 06/12/2020 09:19:30 cholecystectomy completed Rosa Ventura [facility] 12/25/2023 07:50:52 Imaging Results None recorded. [...] bromide 42 mcg (0.06 %) nasal spray [place] 2 sprays 3 times a day by [...] Updated DateTime 1 157.48 cm 45.9 kg/m2 694733. 68 g 77 /min 157 mm[Hg] 102 mm[Hg] Melinda Jackson [facility] 1 09:18:44 Date Recorded Heart rate Body temperature Body height Body mass index (BMI) Body weight Systolic blood pressure Diastolic blood pressure Provider Name and Address Organization Details Last Updated DateTime 0 65 /min 98.2 [degF] 157.48 cm 48.5 kg/m2 575023. 98 g 134 mm[Hg] 86 mm[Hg] Angelique David [facility] 0 09:01:12 Social History Question Answer Notes LastModified by Aqdot Details LastModified Time Tobacco Smoking Status Current Every Day Smoker Melinda Jackson [facility] 06/12/2020 09:19:05 What Was The Date Of Your Most Recent Tobacco Screening? 12/25/2023 [email or web address] Information not available 12/25/2023 Has Tobacco Cessation Counseling Been Provided? No [email or web address] Information not available 08/18/2017 Sex: Female Functional Status Question Answer Note LastModified by Aqdot Details LastModified Time What is your level of alcohol consumption? Occasional [email or web address] Information not available 08/18/2017 Mental Status None recorded. Family History Relationship Description Onset Age of this Age Resolved Age Notes LastModified by Organization Details LastModified Time Mother Disorder of thyroid gland [email or web address] Not available 08/18 10:16:19 Mother Hypertensive disorder [email or web address] Not available 08/18 10:16:33 Father Hypertensive disorder [email or web address] Not available 08/18 10:16:41 Father Family history of stroke [email or web address] Not available 08/18 10:16:59 Father Diabetes mellitus [email or web address] Not available 08/18 10:17:07 Maternal Grandfather Malignant melanoma [email or web address] Not available 12/24 07:49:53 Maternal Grandfather Malignant tumor of gallbladder [email or web address] Not available 07:50:06 Medical History Condition Response Kidney Stones N Hyperthyroidism N Heart Arrhythmia N Emphysema N Esophagus/swallowing troubles N Depression N Anxiety Disorder N Autoimmune disease N Arthritis N Acid Reflux (GERD) N Cancer N Stroke N Melanoma N Hoarseness N Skin Cancer N Snoring problems N Headaches N Fibromyalgia Y Kidney Disease N Heart Problems N Squamous Cell Carcinoma N Mental handicap N Ear or Hearing Problems N Gallbladder Disease N Migraines N Acne N Goiter N Skin Problems N Ulcers N Other Skin Condition N Rheumatic Fever N Bleeding Disorder N Tuberculosis N AIDS/HIV N Asthma N Sleep Disorder N Hepatitis N Glaucoma N Lung Disease N Hypothyroidism N Anesthesia Complications N Varicose Veins Y Hearing Loss N Alcohol Overuse/Alcohol Abuse N High Cholesterol Y Liver Disease N Allergies/Hayfever N Thyroid Problems N Anemia N Immune System Disorder N Chest Pain N Stomach trouble N Heart Attack (CA) N Diabetes N Hyperlipidemia N Eczema N Epilepsy/Seizures N Basal Cell Carcinoma N Sleep Apnea Y Heart Disease N Hypertension N Gynecological HistoryNo gynecological history recorded. Obstetrics History GPAL:G 0 P 0 0 0 0 Past Encounters Encounter ID Performer Location Encounter Start Date Encounter Closed Date Diagnosis/Indication Diagnosis SNOMED-CT Code Diagnosis ICD10 Code Diagnosis Note [id number] FAINA DIAZ MD [place] [facility] [address] [place] [address] 08/18/2017 09:42:16 08/19/2017 11:57:23 Chronic rhinitis 38939219 J31.0 Dysfunctio n of eustachian tube 45433676 H69.91 Otalgia of right ear 578 2370824 923195 H92.01 [id number] WILMA SEGURA [facility] [address] [facility] [place] [address] 08/18/2017 10:29:12 08/18/2017 10:42:02 Otalgia 99671021 H92.03 Dysfunctio n of eustachian tube 52847201 H69.92 Tinnitus of right ear 48 59403455 108 H93.11 Sensorineu ral hearing loss of bilateral ears 501666781 H90.3 [id number] RON [facility]IN[facility] [address] [facility] [place] [address] 08/26/2017 09:03:36 08/27/2017 11:29:08 Sensorineural hearing loss of bilateral ears 145143730 H90.3 Hypertroph y of tonsils 83576923 J35.1 mild Dysfunctio n of left eustachian tube 5190988898 166605 H69.92 Temporoman dibular joint disorder 79836108 M26.609 Bilateral tinnitus 52154 24356 102 H93.13 Gastroesop hageal reflux disease without esophagitis 544730161 K21.9 [id number] KRISTA ROJAS III, MD [place] [facility] [address] [address] [facility] [place] [address] 08/03/2019 08:53:45 08/03/2019 10:58:53 Temporomandibular joint disorder 15362504 M26.609 - Hx of Dysfunctio n of left eustachian tube 1527558771 109166 H69.92 Sensorineu ral hearing loss of bilateral ears 286018556 H90.3 Bilateral tinnitus 88889 61319 102 H93.13 Hypertroph y of tonsils 07949585 J35.1 -Hx of mild Gastroesop hageal reflux disease without esophagitis 838370017 K21.9 - [place] ing of the pharyngeal mucosa Ear pressu re sensation 715739220 H93.8X9 Seasonal allergy 9830047 04 J30.2 [id number] [facility] [address] [facility] [place] [address] 08/03/2019 13:30:53 08/03/2019 13:31:59 Bilateral earache 874948429 H92.03 Sensorineu ral hearing loss of bilateral ears 653422776 H90.3 Bilateral tinnitus 07855 54125 102 H93.13 Dysfunctio n of bilateral eustachian tubes 2009631353 934334 H69.93 [id number] DONNELL WHEELER PA-C [facility] [address] [place] [id number] 06/12/2020 09:09:12 06/14/2020 15:09:50 Lumbar spondylosis 254599494 M47.896 Spinal rickey nosis in cervical region 13216020 M48.02 [id number] DEXTER CARRASCO MD [place] [id number] 12/25/2023 07:34:12 12/25/2023 08:20:25 Benign neoplasm of skin 50534768 D23.72 - Monitor for color/shap e changes- Favor dark mole/dark lentigo on left thighLesio n is likely benign, rec'd watchful monitoring and reporting change to us Melanocyti c nevus of skin 312090364 D22.5 Benign lesion(s) assessed Solar lentiginosis 17946 2007 L81.4 Benign lesion(s) assessed Zinc and titanium SPF30+ sunscreen recommende d Seborrheic keratosis 394 229029 L82.1 Benign lesion(s) assessed- Recommend OTC AmlactinLe marcos on left flank bothers her but is not symptomati c, she desires removal with cryo Hemangioma of skin 64211 006 D18.01 Benign lesion(s) assessed [id number] KADY Blunt APRN [facility] [address] [place] [id number] 06/21/2024 07:32:18 06/21/2024 08:17:08 Inflamed seborrheic keratosis 126280041 L82.0 L53.8 Patient reports she has been picking at this, very irritated and bothersome . Requests removal Counseled on benign nature. Pt elected to treat with liquid nitrogen due to painful irritation . May recur or persist after treatment. Discolorat ion or scarring is possible. Benign layton plasm of skin 67751221 D23.9 No change since last visit 6 [...] Edwards Member ID Guarantor Name 06/21/2024 1 [facility] [id number] Kristina Roman [id number] Kristina Roman 06/21/2024 2 [facility] [id number] Kristina Roman [id number] Kristina Roman Notes Date Note Type Note [...] her throat raw. KRISTA ROJAS III, MD [address] [place] [address], [phone], [facility] 08/03/2019 10:24:03 06/12/2020 text/html Ms. Roman report [...] dropping things often. DONNELL WHEELER PA-C [address] [place], [address], [facility] 06/12/2020 10:03:51 12/25/2023 text/html I am here for my skin check. One spot on left leg and one spot on left abdomen. DEXTER CARRASCO MD [address] [place] [address], [phone], [facility] 12/25/2023 14:26:10 06/21/2024 text/html Mole Location: Scalp Duration: Noticed it 1mo ago Previous tx: None Reports: Rough and scaly. Pt is picking at it. She wants it looked at bc she spent her entire childhood outside in the pool and Maternal grandfather had MM on the scalp. Pt picked it off twice and it came back. KADY LOPEZ, BARBIE [address] [place], [address], [facility] 06/21/2024 10:43:45 OBGyn Episode No OBEpisode recorded.
--- OUTSIDE RECORDS SUMMARY | 2024-08-18 14:12 | XMS_ITS | Data Portability ---
Author Organization [facility] telehealth Address [address] [place] [address] Assessment Encounter Date Assessment Date Assessment LastModified [...] WNWD female in NAD. Doing well w/o RUG SETTER AXMINSTER complaint. Doing well on Gemtesa, will send refill for one year. Occasionally does SBE's. Mammogram performed today. Colonoscopy (2020) up to date. DEXA order provided in office. Pap today. Denies dysuria or hematochezia. RTC in one year or PRN. ROS neg X HPI. Meds reviewed and accurate. Pleasant mood. [email or web address] Not available 05/20/2023 12:28:38 06/06/2024 06/06/2024 54 [...] and father), and chronic venous insufficiency (mother), RI (father), TIA (father), and hyperlipidemia (father). For [...] HPI. Meds reviewed and accurate. Pleasant mood. [email or web address] Not available 06/07/2024 18:29:07 Plan of Treatment Reminders Order Date Submit Date Provider Last Modified By Organization Details Last Modified Time Details Appointments ANNUAL RUG SETTER AXMINSTER 2025 09:00A M Ara Hamilton PA-C Not available Not available Not available Lab pap, LB 2024 025 [facility] ([facility]), [address] [place] [address], [address], 06/07/2024 18:08:17 pap, LB 2023 024 [facility] ([facility]), [address] [place] [address], [address], 05/25/2023 09:43:58 pap, LB 2021 022 [facility] ([facility]), [address] [place], [address], 11/03/2021 21:18:04 fecal occult blood, stool 2021 022 [email or web address] Terri Hahn MD, [address], [place], [address], 10/30/2021 09:54:49 Referral None recorded. Procedures None recorded. Surgeries None recorded. Imaging None recorded. Medication Orders Gemtesa 75 mg tablet 2024 025 [facility], [address] [place] [address] E Padmini Graf [place], [id number], 06/11/2024 10:45:50 Wegovy 0.25 mg/0.5 mL subcutane ous pen injector 2024 025 [facility], [address] [place] [address] E [place]admini [place], [id number], 06/06/2024 10:49:15 Gemtesa 75 mg tablet 2023 024 [facility], [address] [place] [address] [place], [id number], 05/13/2024 10:41:31 Gemtesa 75 mg tablet 2021 022 [facility], [address] [place] [address] E Tono [place], [id number], 12/01/2022 11:15:34 Patient TargetsNo targets recorded. Patient [...] Techn ical servi alea provi ded by [facility] [employer], d/b/a Simone sunshine, [address] [place] [address] Jamir Bear MD, Labor [facility] Dire tor. Case revie wed and diagn osis rende red at [facility] [place], [facility], d/b/a Simone sunshine, [address] [place] [address] Jamir Bear MD, Labor atorTravee Dire tor. CONFI DENTI [place] Not Available [facility] ([facility]) [address], [place], [address], 11/03/2021 21:18:04 10/31/19 22 11/01/2021 HPV HIGH [...] and labor atory findi ngs. See https ://Appia/s ites/ defau lt/fi les/2 018-0 3/AW- 50723 _002_ 01.pd f for furth er infor justin n. Test perfo rmed by [facility], d/b/a PathG roukatherine, [address] , [facility], [place] [address] , Maico Kee ra, DO, Labor atory Direc tor. Not Available [facility] ([facility]) [address], [place], [address], 11/03/2021 21:18:05 10/31/19 22 10/30/2021 fecal occul t blood , stool Occult Blood negati ve Not Available Terri Hahn MD [address], [place], [address], 10/30/2021 09:32:09 12/10/19 22 12/09/2021 lab* lab Not Available [facility] [address] , [place], [address], 12/11/2021 10:40:39 05/20/19 24 05/25/2023 PAP TEST [...] Techn ical servi alea provi ded by [facility] [employer], d/b/a Simone sunshine, [facility] [address] [place] [address] Valencia davis MD, Labor atory Dire tor. Case revie wed and diagn osis rende red at [facility] [employer] [facility] [employer], d/b/a Simone sunshine, [facility] [place] [address] Valencia davis MD, Labor atory Dire tor. CONFI DENTI [place] Not Available [facility] ([facility]) [address], [place], [address], 05/25/2023 09:43:58 05/20/19 24 05/21/2023 HPV HIGH RISK SCREE N (TMA) HPV high risk NOT DETECT ED normal The human papil lomav irus (HPV) High Risk Scree n is an FDA-a pprov ed in-vi tro ampli fied nucle ic acid test for the quali tativ e detec tion of E6/E7 viral mRNA. [facility] ian galicia be corre lated with patie nt prese ntati on, histo ry, cervi zenia cytol ogy and other clini zenia and labor atory findi ngs. See https ://shopatplaces wGénie Numérique/s ites/ defau lt/fi les/2 018-0 3/AW- 15956 _002_ 01.pd f for furth er infor matio n. Test perfo rmed by Assoc i[facility] ts, [facility] d/b/a PathJose sunshine, [address] [facility], [place] [address] , Maico Kee ra, DO, Labor atory [facility], CLIA# [id number] Not Available [facility] ([facility]) [address] [facility] [address], [place], [address], 05/25/2023 09:43:59 06/07/19 25 06/07/2024 PAP TEST [...] provi ded by [facility] i[facility] log[facility] Tripda [facility], d/b/a [facility], [facility] [address] [place] [address] Valencia davis MD, [facility] ator Dire tor. Case revie wed and diagn osis rende red at [facility], d/b/a [facility], [facility] [address] [place] [address] Valencia davis MD, Labor ator Dire tor. CONFI DENTI [place] Not Available [facility] ([facility]) [facility]0 [facility] [address], [place], [address], 06/07/2024 18:08:17 06/07/19 25 06/07/2024 HPV HIGH [...] labor atory findi ngs. See https ://ww wGénie Numérique/s lencho/ lorenzo lt/fi les/2 018-0 3/AW- 33347 _002_ 01.pd f for lilliana gregorio infor justin osborn. Test perfo rmed by [facility] d/b/a PathG jong, [address], [place] [address] , Maico Kee ra, DO, Labor atory Dire tor, CLIA# [id number] Not Available [facility] ([facility]) [address] [facility] [address], [place], [address], 06/07/2024 18:08:18 08/06/19 24 07/30/2023 DEXA No observ ation record ed. [email or web address] Not Available 2023 22:08:58 Result Notes None recorded. Problems Name Problem SNOMED Code Status Onset Date Resolution Date Notes Provider Name and Address Organization Details Recorded Time Overactive urinary bladder 055216971 Active [address] [facility], [place], [address], [facility] 4 11:45:07 Obesity 998602216 Active [address], [place], [address], [facility] 5 09:32:37 Hyperlipidemia 30382515 Active [address], [place], [address], [facility] 5 09:33:21 Essential hypertension 98927890 Active [address], [place], [address], [facility] 5 18:29:39 Obstructive sleep apnea syndrome 11981544 Active [address], [place], [address], [facility] 18:29:46 Problem [...] Non-OB ULS completed MD [address], [place], [address], [facility] 12/09/2021 15:55:42 03/09/19 [...] medicatio n hives severe Not available 10/30/2021 01173 1 RxNorm [facility] 2 [...] #ofRe fills: 30 Drug Identifi cation Code: 126047 F ree Text SIG: Myrbetri q 25MG, [...] Updated DateTime 05/20/2023 162.56 cm 42.1 kg/m2 275624.5 7 g 122 mm[Hg] 86 mm[Hg] [facility] 4 11:18:34 Date Recorded Body height Body mass index (BMI) Body weight Systolic blood pressure Diastolic blood pressure Provider Name and Address Organization Details Last Updated DateTime 06/06/2024 162.56 cm 42.7 kg/m2 908834.5 g 124 mm[Hg] 82 mm[Hg] [facility] 5 09:09:05 Date Recorded Body height Body mass index (BMI) Body weight Systolic blood pressure Diastolic blood pressure Provider Name and Address Organization Details Last Updated DateTime 10/30/2021 162.56 cm 45.2 kg/m2 316783.9 5 g 144 mm[Hg] 86 mm[Hg] [facility] 2 09:33:01 Date Recorded Body height Body mass index (BMI) Body weight Systolic blood pressure Diastolic blood pressure Provider Name and Address Organization Details Last Updated DateTime 12/09/2021 162.56 cm 45.1 kg/m2 377687.0 7 g 128 mm[Hg] 86 mm[Hg] [facility] 2 14:50:51 Social History Question Answer Notes LastModified by [employer] Details LastModified Time Tobacco Smoking Status Current Every Day Smoker 10 a day at most [facility] 06/06/2024 09:10:54 Do You Use Protection During Sex? No [email or web address] Information not available 10/30/2021 What Is Your Relationship Status? [email or web address] Information not available 10/30/2021 Are You Sexually Active? Yes [email or web address] Information not available 10/30/2021 Do You Have Any Future Plans To Get ? No, I Don't Want To Become [email or web address] Information not available 10/30/2021 Sex: Unknown Functional Status Question Answer Note LastModified by [employer] Details LastModified Time Do you use any illicit or recreational drugs? No [email or web address] Information not available 10/30/2021 Do you or have you ever used any other forms of tobacco or nicotine? No [email or web address] Information not available 10/30/2021 What is your level of alcohol consumption? Occasional [email or web address] Information not available 10/30/2021 Mental Status None recorded. Family History Nothing [...] Code Diagnosis ICD10 Code Diagnosis Note 3332 EVELYN Ray MD [address] [place] [address] 10/30/2021 09:12:26 10/30/2021 10:01:23 Routine gynecologic examination done 5164261457 9101 Z01.419 Screening for malignant neoplasm of colon 431023414 Z12.11 99049 MD TERRI Julien MD [address] [place] [address] 12/09/2021 14:16:29 12/09/2021 15:58:06 Amenorrhea 00759666 N91.2 Intramural leiomyoma of uterus 84042599 D25.1 Lateral cystocele 622520 001 N81.12 Vaginal discharge 952104 006 N89.8 will culture via PCL Urethral hypermobility 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 9108 N36.41 Overactive urinary bladder 228381410 N32.81 Female str ess incontinence 44152656 N39.3 Dysuria 19754974 R30.0 will culture via PCL Menopausal symptom 04090 002 N95.1 09375 AYO Lacey MD [address] [place] [address] 05/20/2023 10:59:43 05/20/2023 13:01:21 Routine gynecologic examination done 8613574174 9101 Z01.419 Overactive urinary bladder 469255717 N32.81 85728 AYO Lacey MD [address] [place] [address] 06/06/2024 08:45:12 06/13/2024 13:01:29 Routine gynecologic examination done 2961087403 9101 Z01.419 Overactive urinary bladder 167729213 N32.81 Hyperlipidemia 37059875 E78.2 Obesity 156060318 E66.01 Family his tory of hyperlipidemia 049918947 Z83.49 Family his tory of Hypertension 271844053 Z82.49 Family his tory of Myocardial infarction 312806543 Z82.49 Essential hypertension 58289654 I10 Obstructiv e sleep apnea syndrome 13527539 G47.33 Health Concerns Section Related Observation LastModified by Organization Detai ls LastModified Time None Recorded Concern Status LastModified by Organization Details LastModified Time None Recorded Advance Directives Directive None Recorded Payers Insurance Date Sequence Insurance Name Policy Number Policy Edwards Covered Member ID Edwards Member ID Guarantor Name 06/16/2024 1 [facility] [id number] Kristina Roman [id number] Kristina Roman Notes Date Note Type Note Provider Name and Address Organization Details Recorded Time 10/30/2021 text/html Annual GYNReport ed bypatient.Notes:wo rsening incontinence [facility] 10/30/2021 09:57:13 12/09/2021 text/html Pt here for worsened urinary incontinence. MD [address], [place], [address], [facility] 12/09/2021 15:56:06 05/20/2023 text/html Annual GYNReport ed bypatient.History: no gynecologic complaints [address] , [place], [address], [facility] 05/20/2023 12:28:51 06/06/2024 text/html Annual GYNReport ed bypatient.History: needs medication refillNotes:Report s concerns for weight gain Ara Hamilton PA-C [address], [place], [address], [facility] 06/07/2024 18:30:13 OBGyn Episode No OBEpisode recorded.
--- OUTSIDE RECORDS SUMMARY | 2024-08-18 14:12 | XMS_ITS | Clinical Summary ---
Author Organization [facility] Phone Care Team Providers Care Director Of Field Sales Name Role Phone Unavailable Primary Care Provider Unavailabl e Allergies No known active allergies Medications No known medications Social History Tobacco Use Types Packs/Day Years Used Date Smoking Tobacco: Every Day Cigarettes Tobacco Cessation:Ready to Q uit: Not Asked; Counseling Given: Not Answered Alcohol Use Standard Drinks/Week Comments Not Currently 0 (1 standard drink = 0.6 oz pur e alcohol) Comments Unknown Sex and Gender Information Value Date Recorded Sex Assigned at Not on file Legal Sex Female 8:15 AM EDT Gender Identity Not on file Sexual Orientation Not on file Obstetrics History Last Filed Vital Signs Vital Sign Reading Time Taken Comments Blood Pressure - - Pulse - - Temperature - - Respiratory Rate - - Oxygen Saturation - - Inhaled Oxygen Concentration - - Weight 109.8 kg (242 lb) 06/03/2023 8:04 AM EDT Height 160 cm (5' 3 ) 06/03/2023 8:04 AM EDT Body Mass Index 42.87 06/03/2023 8:04 AM EDT Plan of Treatment Health Maintenance Due Date Last Done Comments Annual Wellness Exam 1972 DTaP/TDaP/Td (1 - Tdap) 1988 Hepatitis B Vaccine (1 of 3 - 19+ 3-dose series) 1988 Pneumococcal Vaccine 50+ (1 of 2 - PCV) 1988 Cervical Cancer Screening 1990 Pap Smear 1990 HPV/Pap Cotest 06/05/1999 Cologuard 2014 Colon Cancer Screening 2014 Colonoscopy 2014 FIT 2014 Sigmoidoscopy 2014 Virtual Colonography 2014 Zoster (1 of 2) 06/05/2019 COVID-19 Vaccine ( season) 2023 03/22/2021, 04/04/2020, 03/06/2020 Influenza Vaccine (Season Ended) 2024 Breast Cancer Screening 05/19/2025 05/20/19 24, 05/20/2023, 05/16/2022, Additional history exists Meningococcal B Vaccine Aged Out No l onger eligible based on patient's age to complete this topic Insurance
== END 2024-08-18 23:59 | disposition home or self-care (01) ==
LOC: RAD 13:09
PROVIDERS: PCP Internal Medicine Adolescent Medicine; Visit Provider Internal Medicine Pulmonary Disease
DX: Z12.2 Encounter for screening for malignant neoplasm of respiratory organs (principal); J98.4 Other disorders of lung; F17.210 Nicotine dependence, cigarettes, uncomplicated
CPT/HCPCS: 71271

== ENCOUNTER 2025-01-26 09:25 | Outpatient (CLI) | payer OTHER, SELFPAY ==
--- OUTSIDE RECORDS SUMMARY | 2024-12-06 08:33 | XMS_ITS | Continuity of Care Document ---
Author Organization [facility] Phone Care Team Providers Care Dietitian Consultant Name Role Phone CASE, LIYAH Duarte Admitting JCARLOS MANE Primary Care CASE, LIYAH Duarte Primary Attending CASE, LIYAH Duarte Surgeon ALLERGIES AND ADVERSE REACTIONS ALLERGIES AND ADVERSE REACTIONS Code System Allergy Substance Adverse Reaction Date Reaction (Severity) Comment Status Reported By Updated By No Known Allergies [email or web address] on December 02, 2024 11:07:00 AM [facility] FAMILY HISTORY RELATION: Father Status: LIVING SNOMED-CT Diagnosis Age At Onset Information not available RELATION: Mother Status: LIVING SNOMED-CT Diagnosis Age At Onset [id number] Chronic renal failure 553394125 Dialysis procedure 83866515 Chronic obstructive pulmonary di sease 29167463 Hypertensive disorder MEDICATIONS HOME MEDICATIONS Status [facility] Medication Dose Route Frequency Dates Comments Reported By Updated By Active 864357 65695 47855 0 Gabapentin Oral Tablet 600 MG 1.0 TAB ORAL BID Last Dose: 2024 12:00: 00 PM [facility] PATIENT [id number] on 2024 10:59:31 AM [facility] Active 590915 13662 22874 0 HYDROcodone- Acetaminophe n Oral Tablet 7.5-325 MG 1.0 TAB ORAL BIDPRN Last Dose: 2024 12:00: 00 PM [facility] PATIENT [id number] on 2024 10:59:58 AM [facility] Active 199803 71496 45195 5 Ibuprofen Oral Tablet 800 MG 1.0 TAB ORAL Q6HPRN Last Dose: 2024 12:00: 00 PM [facility] PATIENT [id number] on 5 11:00:13 AM [facility] Active 919332 86919 60583 0 Omeprazole Oral Capsule Delayed Release 40 MG 1.0 CAP ORAL DAILY Last Dose: 2024 1:00:0 0 PM [facility] PATIENT rosaura on [facility] 2024 11:00:23 AM [facility] Active 342993 41631 33618 1 Propranolol HCl Oral Tablet 20 MG 1.0 TAB ORAL BID Last Dose: 2024 11:00: 00 PM [facility] PATIENT rosaura on [facility] 2024 11:00:35 AM [facility] Active 157588 80402 94424 0 hydroCHLOROt hiazide Oral Tablet 25 MG 1.0 TAB ORAL BID Last Dose: 2024 11:00: 00 PM [facility] PATIENT rosaura on [facility] 2024 10:59:45 AM [facility] Active 0153715 92506 28758 6 ZyrTEC Allergy Oral Tablet 10 MG 1.0 TAB ORAL DAILY Last Dose: 2024 1:00:0 0 PM [facility] PATIENT rosaura on [facility] 2024 11:00:47 AM [facility] Active 9162510 61514 67244 8 Albuterol Sulfate HFA Inhalation Aerosol Solution 108 (90 Base) MCG/ACT 2.0 PUF INHALA TION Q6HPRN Last Dose: 2024 12:00: 00 PM [facility] PATIENT rosaura on [facility] 2024 10:59:20 AM [facility] Active 552098 86170 15796 0 Wellbutrin XL Oral Tablet Extended Release 24 Hour 300 MG 1.0 TAB ORAL DAILY Last Dose: 2024 1:00:0 0 PM [facility] rosarua on [facility] 2024 11:01:23 AM [facility] DISCHARGE MEDICATIONS Status [facility] Medication Dose Route Frequency Dates Dis pense Data Comments Physician Updated By No Discharge Medication Info rmation Available INPATIENT MEDICATIONS Status [facility] Medication Dose Route Frequency Rat e Quantity Dates Indication Dispense Data Comments Physician Updated By [facility] [id number] 1024 8011 704 LACTATED RINGERS SOLN 1000. 0 ML INTRAV ENOUS ONE TIME ADMINISTRA TION (UNSCHEDUL ED) 25.0 ML/HR Start: 2024 6:09:0 0 PM UTC End: 2024 6:33:0 0 PM UTC MARILU Garcia [id number] on 2024 4:25:00 AM UTC Discont inued 7547070 0033 8004 904 sodium chloride 0.9% SOLN 1000. 0 ML INTRAV ENOUS ONE TIME ADMINISTRA TION (UNSCHEDUL ED) 25.0 ML/HR Start: 2024 6:09:0 0 PM UTC End: 2024 6:33:0 0 PM UTC YANELISDianne Garcia [id number] on 2024 4:25:00 AM UTC Discont inued 1206171 2884 5034 542 PROPOFOL 500 MG/50ML EMUL 500.0 MG INTRAV ENOUS ONE TIME ONLY (SCHEDULED DOSE) 20.833 MG/HR Start: 2024 6:04:0 0 PM UTC End: 2024 6:07:5 1 PM UTC CASE LIYAH Duarte [id number] on 2024 6:07:00 PM UTC Discont inued 5553124 1658 3020 202 LIDOCAINE HCL 2 % SOLN 2.0 ML ONE TIME ONLY (SCHEDULED DOSE) 0.083 ML/HR Start: 2024 6:04:0 0 PM UTC End: 2024 6:07:5 1 PM UTC CASE LIYAH Duarte [id number] on 2024 6:07:00 PM UTC Discont inued 041600 1219 8011 704 LACTATED RINGERS SOLN 1000. 0 ML IV CONTIN UOUS ONE TIME ONLY (SCHEDULED DOSE) Start: 2024 2:12:0 0 PM UTC End: 2024 2:12:0 0 PM UTC CASE LIYAH Duarte INTERFAC ED on 2024 4:00:00 AM UTC SOCIAL HISTORY SOCIAL HISTORY - Smoking Status SNOMED-CT Social History Element Description Effective Dates Offered Cessation Comment Updated By [id number] Current Tobacco smoking status Current Every Day Smoker [id number] on December 01, 2024 2:18:08 PM [place] SOCIAL HISTORY - Gender Sex: Female SOCIAL HISTORY - Status : status i nformation is not available Intention in Next Year: intention information is not available SOCIAL HISTORY - Assessments Code System Description Status Date Value of Assessment Updated By Comment Assessment Information is no t available SOCIAL HISTORY - [place] Affiliation [place] information is not av ailable SOCIAL HISTORY - Legal Sex Legal Sex information is not available SOCIAL HISTORY - Sexual Behavior Sexual Orientation Gender Identity SNOMED-CT Description SNO MED -CT Description Activity Level No of Partners Partner Type UpdatedBy Information is not available SOCIAL HISTORY - Occupation Occupation information is no t available VITAL SIGNS PATIENT VITAL SIGNS This section displays the mo st recent value for each vital sign as of December 06, 2024 1:33:26 PM [facility] Loinc Code Vital Sign Activity Date Result Updated By 8302-2 Body height December 02 11:07:29 AM [facility] 160.02 cm (63.0 in) [email or web address] on December 02, 2024 11:07:29 AM [facility] 92463-9 Body mass index (BMI) [Ratio] December 02, 2024 11:07:29 AM [facility] 43.114 kg/m2 3140-1 Body Surface Area Derived From Formula December 02, 2024 11:07:29 AM [facility] 2.1021 m2 17383-8 Body weight Measured December 02, 2024 11:07:29 AM [facility] 110.4 kg (243.0 lb) [id number] on December 02, 2024 11:07:29 AM [facility] PEDIATRIC GROWTH CHART - VITAL SIGNS This section displays Head C ircumference Percentile, Weight for Length Percentile and BMI Percentile Loinc Code Pediatric Measure Age (Months) Result Updat ed By No Pediatric Growth Chart Pe rcentile Information Available. PROCEDURES PATIENT PROCEDURES CODE SYSTEM DESCRIPTION STATUS PERFORMED DATE UPD ATED BY [id number] SNOMED-CT Colonoscopy completed December 02, 2024 4:00:00 AM [facility] [id number] on December 02, 2024 12:12:18 PM [facility] PROCEDURE NOTE Procedure Note information i s not available. HEALTH CONCERNS Problems Concern Status Health Concern problem infor mation not available. Smoking Status Status Years Used Consumed packs p er day Health Concern smoking histo ry information not available. Family History Concern Status Health Concern family histor y information not available. ENCOUNTERS ENCOUNTER INFORMATION Reason for Visit SC COLON Admission December 02, 2024 10:33:00 AM [facility] [place] [id number] [facility] [address] Discharge December 02, 2024 6:33:00 PM UT C DISCHARGED TO HOME OR SELF CARE ENCOUNTER DIAGNOSES Notes information is not mike ilable. Code System Diagnosis Onset Date Diagnosis information is not available. ABSTRACT DIAGNOSES Code System Diagnosis Updated By Abatement Date Z12.11 ICD10 ENCOUNTER FOR SC REENING FOR MALIGNANT NEOPLASM OF COLON [id number] on December 06, 2024 1:33:02 PM UT Z12.11 ICD10 ENCOUNTER FOR SC REENING FOR MALIGNANT NEOPLASM OF COLON [id number] on December 06, 2024 1:33:02 PM UT R07.9 ICD10 CHEST PAIN, UNSPECIFIED [id number] on December 06, 2024 1:33:02 PM UT I10 ICD10 ESSENTIAL (PRIMA RY) HYPERTENSION [id number] on December 06, 2024 1:33:02 PM UT F17.210 ICD10 NICOTINE DEPENDE NCE, CIGARETTES, UNCOMPLICATED [id number] on December 06, 2024 1:33:02 PM UT E78.5 ICD10 HYPERLIPIDEMIA, UNSPECIFIED SIG8073 on December 06, 2024 1:33:02 PM UTC J45.909 ICD10 UNSPECIFIED ASTH MA, UNCOMPLICATED [id number] on December 06, 2024 1:33:02 PM UT R06.00 ICD10 DYSPNEA, UNSPECIFIED [id number] on December 06, 2024 1:33:02 PM UTC G47.30 ICD10 SLEEP APNEA, UNSPECIFIED AAD 6617 on December 06, 2024 1:33:02 PM UTC K21.9 ICD10 GASTRO-ESOPHAGEA L REFLUX DISEASE WITHOUT ESOPHAGITIS [id number] on December 06, 2024 1:33:02 PM UTC E66.01 ICD10 MORBID (SEVERE) OBESITY DUE TO EXCESS CALORIES [id number] on December 06, 2024 1:33:02 PM UTC Z68.41 ICD10 BODY MASS INDEX [BMI] 40.0-44.9, ADULT [id number] on December 06, 2024 1:33:02 PM UTC M79.7 ICD10 FIBROMYALGIA [id number] on Nov 1:33:02 PM UTC M54.50 ICD10 LOW BACK PAIN, UNSPECIFIED A TC6767 on December 06, 2024 1:33:02 PM UTC F99 ICD10 MENTAL DISORDER, NOT OTHERWISE SPECIFIED [id number] on December 06, 2024 1:33:02 PM UTC E87.5 ICD10 HYPERKALEMIA [id number] on Nov 1:33:02 PM UTC Z90.49 ICD10 ACQUIRED ABSENCE OF OTHER SPECIFIED PARTS OF DIGESTIVE TRACT [id number] on December 06, 2024 1:33:02 PM UTC Z79.899 ICD10 OTHER FEEDER OPERATOR (CURRENT) DRUG THERAPY [id number] on December 06, 2024 1:33:02 PM UTC Z88.8 ICD10 ALLERGY STATUS T O OTHER DRUGS, MEDICAMENTS AND BIOLOGICAL SUBSTANCES [id number] on December 06, 2024 1:33:02 PM UTC CARE TEAM Care Dietitian Consultant Role LIYAH CASE Admitting JCARLOS MANE Primary Care LIYAH CASE Primary Attending LIAYH CAMILO Surgeon CARE TEAM CARE paint department supervisor Role on Team Location Telecom Status Start Date End Catrachito e Updated By LESLEE CHRISTENSEN Surgeon normal December 02, 2024 10:33:00 AM UTC December 02, 2024 6:33:00 PM UTC [id number] on December 06, 2024 1:33:10 PM UT ALHAJI GARBER PCP normal December 02, 2024 10:37:32 AM UTC December 02, 2024 6:33:00 PM UTC [id number] on December 06, 2024 1:33:10 PM UTC NO DEFINED PRIMARY C PCP normal November 23, 2024 5:48:15 PM UTC December 02, 2024 10:37:32 AM UTC [id number] on December 06, 2024 1:33:10 PM UTC CASE LIYAH CHRISTENSEN Attending normal November 23, 2024 5:48:15 PM UTC December 02, 2024 6:33:00 PM UTC [id number] on December 06, 2024 1:33:10 PM UTC CASE LIYAH CHRISTENSEN Admitting normal November 23, 2024 5:48:15 PM UTC December 02, 2024 6:33:00 PM UTC [id number] on December 06, 2024 1:33:10 PM UTC
[2025-01-26 09:57] LABS: Hematocrit 40.6 % (37.0-47.0); Hemoglobin 13.8 g/dL (12.2-16.2); Immature Granulocytes % 0.3 %; Mean Corpuscular HGB Conc 34.0 g/dL (31.8-35.4); Mean Corpuscular Hemoglobin 30.1 pg (27.0-31.2); Mean Corpuscular Volume 88.6 fl (81-99); Nucleated Red Blood Cells % 0 %; Platelet Count 257 K/mm3 (142-424); Red Blood Count 4.58 M/mm3 (4.20-5.40); Red Cell Distribution Width-SD 43.2 fL; White Blood Count 9.3 K/mm3 (4.8-10.8)
[2025-01-26 10:26] LABS: Alanine Aminotransferase 32 U/L (12-78); Albumin Level 4.4 g/dl (3.5-5.0); Albumin/Globulin Ratio 1.9 (1.1-1.8); Alkaline Phosphatase 97 U/L (38-126); Anion Gap 11.3 mEq/L (5-15); Aspartate Amino Transferase 30 U/L (14-36); Bilirubin,Total 0.4 mg/dl (0.2-1.3); Blood Urea Nitrogen 22 mg/dl (7-17); Calcium 9.5 mg/dl (8.4-10.2); Carbon Dioxide 29 mmol/L (22.0-30.0); Chloride 100 mmol/L (98-107); Creatinine,Serum 0.80 mg/dl (0.52-1.04); Estimated Glomerular Filt Rate 74 ml/min (>60); GFR (African American) 90 ML/MIN (>60); Globulin 2.3 g/dL (1.3-3.2); Glucose 94 mg/dl (74-100); Potassium 3.3 mmoL/L (3.5-5.1); Sodium 137 mmol/L (136-145); Total Protein,Serum 6.7 g/dl (6.3-8.2)
--- OUTSIDE RECORDS SUMMARY | 2025-01-26 10:29 | XMS_ITS | Data Portability ---
Author Organization [facility] [place] [facility] Address [address] [place] [address] Care Team Providers Care Galvanizer Zinc Name Role Phone GILDA COSTA Primary Care Provider [phone] DEXTER CARRASCO Fire Prevention Inspector Assessment Encounter Date Assessment Date Assessment LastModified by Organization Details LastModified Time 06/12/2020 06/12/2020 MRI cervical spine. [facility]. 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 [facility]. 05/08/20 M ild arthritic changes without significant nerve compression or [...] Last Modified Time Details Appointments FOLLOW UP DAK 2025 07:40A M YENNI LOPEZ PRODUCTION HARDENER Not available Not available Not available Lab None record ed. Referral None record ed. Procedures None record ed. Surgeries None record ed. Imaging None record ed. Medication Orders Pepcid AC 20 mg tablet 2019 020 [email or web address] [id number], [address] [place], [address], 08/03/2019 10:24:08 Patient TargetsNo targets recorded. Patient Instructions Encounter Date Encounter Id Patient Instructions Last Modified By Organization Details Last Modified Time 08/03/2019 [id number] hearing loss: ca re instructions Not available 08/03/2019 13:31:34 08/03/2019 [id number] 1. audiogram obtained- type A tymp, 10 [...] the next few months. 4. F/u prn [email or web address] Not available 08/03/2019 10:23:42 Reason for Referral None Reported. Results Created Date Observation Date Name Description Value Unit Range Abnormal Flag Note LastModifiedBy Organization Detail LastModifiedTime 08/04/19 20 08/03/2019 audio gram No observ ation record ed. BARCODE Not Available 2019 12:40:38 06/13/19 21 06/12/2020 XR, lumbo sacra l spine , 2 or 3 view, bendi ng only [place] [facility] [address] [facility] [address] Marlin kitchen Name: MONIQUE Figueroa MELANIE kitchen : [address] Orderi ng Provid er: SUMEET HOOD EXAM DATE: 2020 EXAM: XR LUMBAR SPINE [...] Henry MD on 06/13/19 11:15 AM [email or web address] [facility] [address], [address], 06/21/2020 11:27:52 Result Notes Documentation Provider Name and Address Organization Details Recorded Time Xr, Lumbosacral Spine, 2 Or 3 View, Bending Only : [address] [address] Patient Name: TEENA ROMAN Patient : 1970 Patient Ordering Provider: SUMEET HOOD EXAM DATE: 06/12/2020 EXAM: XR LUMBAR SPINE FLEX/EXT ONLY CLINICAL INFORMATION: Back pain. IMAGES PROVIDED: Lateral views of the lumbar spine in flexion and extension. COMPARISON: None. FINDINGS: Vertebral body heights are normal. Multilevel disc space reduction is seen with anterior and lateral osteophytes. No abnormality of alignment is seen. No instability is seen on flexion or extension. Degenerative changes are seen in the facet joints. No radiographic evidence of injury is noted. IMPRESSION: Normal radiographic series of the lumbar spine. No instability. Interpreted By: Johnson Henry MD ET HOOD MD [address] [place] [address], [address], [facility] 06/21/2020 11:27:52 Problems No Known Problems Procedures Surgical History Date Name Laterality Status Provider Name and Address Organization Details Recorded Time 025 DAK - Destruction BN Lesions completed Melanie Duffy [facility] 06/21/2024 08:04:20 024 DAK - Destruction BN Lesions completed DEXTER CARRASCO MD [address] [place], [address], [facility] 12/25/2023 14:25:10 020 Tympanogram completed NINA FRAIRE, AUD [address] [place], [address], [facility] 08/03/2019 13:31:06 020 Audiogram completed NINA FRAIRE, AUD [address] [place], [address], [facility] 08/03/2019 13:31:05 020 Laryngoscopy Flex completed Eddie Eason [facility] 08/03/2019 10:08:05 018 Tympanogram completed MEAGHAN FERRERA, AUD [address] [place], [address], [facility] 08/18/2017 10:30:07 018 Audiogram completed MEAGHAN FERRERA, AUD [address] [place], [address], [facility] 08/18/2017 10:30:05 Unlisted px dentalvlr strux completed Angelique David [facility] 08/18/2017 10:17:29 Carpal Tunnel Surgery completed Melinda Jackson [facility] 06/12/2020 09:19:30 cholecystectomy completed Rosa Ventura [facility] 12/25/2023 07:50:52 Imaging Results None recorded. Procedure Notes None recorded. Medical Equipment None Reported. Allergies No known drug allergies Medications Name Sig Start Date Stop Date Status Note LastModified by Organization Details LastModified Time dhea 25mg micronized 12/24 completed Not Available Not Available Not Available testosteron e 1% (5mg) cream 10/18 /2024 completed Not Available Not Available Not Available [...] bromide 42 mcg (0.06 %) nasal spray Mercedita 2 sprays 3 times a day by [...] index (BMI) Body weight Heart rate Systolic And Diastolic Provider Name and Address Organization Details Last Updated DateTime 06/12/2020 157.48 cm 45.9 kg/m2 512174.6 8 g 77 /min 157/102 mm[Hg] Melinda Jackson [facility] 06/12/2020 09:18:44 Date Recorded Heart rate Body temperature Body height Body mass index (BMI) Body weight Systolic And Diastolic Provider Name and Address Organization Details Last Updated DateTime 0 65 /min 98.2 [degF] 157.48 cm 48.5 kg/m2 796600. 98 g 134/86 mm[Hg] Angelique David [facility] 0 09:01:12 Social History Question Answer Notes LastModified by [employer] Details LastModified Time Tobacco Smoking Status Current Every Day Smoker [facility]/12/2020 09:19:05 What Was The Date Of Your Most Recent Tobacco Screening? 12/25/2023 [email or web address] Information not available 12/25/2023 Has Tobacco Cessation Counseling Been Provided? No [email or web address] Information not available 08/18/2017 Sex: Female Functional Status Question Answer Note LastModified by [employer] Details LastModified Time What is your level of alcohol consumption? Occasional [email or web address] Information not available 08/18/2017 Mental Status None recorded. Family History Relationship Description Onset Age of this Age Resolved Age Notes LastModified by Organization Details LastModified Time Mother Disorder of thyroid gland [email or web address] Not available 08/18 10:16:19 Mother Hypertensive disorder [email or web address] Not available 08/18 10:16:33 Father Hypertensive disorder [email or web address] Not available 08/18 10:16:41 Father Family history of stroke [email or web address] Not available 08/18 10:16:59 Father Diabetes mellitus [email or web address] Not available 08/18 10:17:07 Maternal Grandfather Malignant melanoma [email or web address] Not available 12/24 07:49:53 Maternal Grandfather Malignant neoplasm of gallbladder [email or web address] Not available 07:50:06 Medical History Condition Response [...] Pain N Stomach trouble N Heart Attack ([place]) N Diabetes N Hyperlipidemia N Eczema N Epilepsy/Seizures N Basal Cell Carcinoma N Sleep Apnea Y Heart Disease N Hypertension N Gynecological HistoryNo gynecological history recorded. Obstetrics History GPAL:G 0 P 0 0 0 0 Past Encounters Encounter ID Performer Location Encounter Start Date Encounter Closed Date Diagnosis/Indication Diagnosis SNOMED-CT Code Diagnosis ICD10 Code Diagnosis IMO Codes Diagnosis Note [id number] FAINA DIAZ MD [facility] [address] [place] [address] 08/18/2017 09:42:16 08/19/2017 11:57:23 Chronic rhinitis 03646180 J31.0 Dysfunctio n of eustachian tube 33411428 H69.91 Otalgia of right ear 638 7638760 923153 H92.01 [id number] WILMA SEGURA [facility] [address] [place] [address] 08/18/2017 10:29:12 08/18/2017 10:42:02 Otalgia 58602814 H92.03 Dysfunctio n of eustachian tube 28899734 H69.92 Tinnitus of right ear 48 60655536 108 H93.11 Sensorineu ral hearing loss of bilateral ears 809391407 H90.3 [id number] RON MCKINLEY MD [facility] [address] [place] [address] 08/26/2017 09:03:36 08/27/2017 11:29:08 Sensorineural hearing loss of bilateral ears 583136719 H90.3 Hypertroph y of tonsils 98600790 J35.1 mild Dysfunctio n of left eustachian tube 0456848484 232335 H69.92 Temporoman dibular joint disorder 00613006 M26.609 Bilateral tinnitus 23504 46400 102 H93.13 Gastroesop hageal reflux disease without esophagitis 088142456 K21.9 [id number] KRISTA ROJAS III, [facility] [address] [facility] [place] [address] 08/03/2019 08:53:45 08/03/2019 10:58:53 Temporomandibular joint disorder 24323196 M26.609 - Hx of Dysfunctio n of left eustachian tube 8488565632 636827 H69.92 Sensorineu ral hearing loss of bilateral ears 465250304 H90.3 Bilateral tinnitus 51638 49439 102 H93.13 Hypertroph y of tonsils 07013187 J35.1 -Hx of mild Gastroesop hageal reflux disease without esophagitis 635778400 K21.9 - [place] ing of the pharyngeal mucosa Ear pressu re sensation 399407733 H93.8X9 Seasonal allergy 6068950 04 J30.2 [id number] WILMA PARSONS [facility] [address] [facility] [place] [address] 08/03/2019 13:30:53 08/03/2019 13:31:59 Bilateral earache 788690611 H92.03 Sensorineu ral hearing loss of bilateral ears 430158275 H90.3 Bilateral tinnitus 22673 72064 102 H93.13 Dysfunctio n of bilateral eustachian tubes 5292104619 062172 H69.93 [id number] DONNELL WHEELER PA-C [facility] [address] [place] [address] 06/12/2020 09:09:12 06/14/2020 15:09:50 Lumbar spondylosis 408808205 M47.896 Spinal rickey nosis in cervical region 70039343 M48.02 [id number] DEXTER CARRASCO MD [facility] [address] [place] [address] 12/25/2023 07:34:12 12/25/2023 08:20:25 Benign neoplasm of skin 40439021 D23.72 - Monitor for color/shap e changes- Favor dark mole/dark lentigo on left thighLesio n is likely benign, rec'd watchful monitoring and reporting change to us Melanocyti c nevus of skin 540527647 D22.5 Benign lesion(s) assessed Solar lentiginosis 43010 2006 L81.4 Benign lesion(s) assessed Zinc and titanium SPF30+ sunscreen recommende d Seborrheic keratosis 394 502288 L82.1 Benign lesion(s) assessed- Recommend OTC AmlactinLe marcos on left flank bothers her but is not symptomati c, she desires removal with cryo Hemangioma of skin 65148 006 D18.01 Benign lesion(s) assessed [id number] KADY Blunt, SALES AND LEASING CONSULTANT DAK [address] [address] 06/21/2024 07:32:18 06/21/2024 08:17:08 Inflamed seborrheic keratosis 319869369 L82.0 L53.8 Patient reports she has been picking at this, very irritated and bothersome . Requests removal Counseled on benign nature. Pt elected to treat with liquid nitrogen due to painful irritation . May recur or persist after treatment. Discolorat ion or scarring is possible. Benign layton plasm of skin 39754669 D23.9 No change since last visit 6 [...] Edwards Member ID Guarantor Name 06/21/2024 1 [facility] [id number] Teena Roman [id number] Teena Roman 06/21/2024 2 [facility] [id number] Teena Roman [id number] Teena Roman Notes Date Note Type Note Provider Name and Address Organization Details Recorded Time 08/03/2019 text/html Teena returns today in follow up of bilateral SNHL along with eustachian tube dysfunction. She states that she is not experiencing the severe pressure that she had before but she still experiences a feeling of fulness. She denies a history of loud noise exposure. She does take a Zyrtec daily for allergies. Teena did try Flonase daily but it made her throat raw. KRISTA ROJAS III, MD [address] [place] [address], [address], [facility] 08/03/2019 10:24:03 06/12/2020 text/html Ms. Roman reports low back pain that began about 2003. [...] or dropping things often. DONNELL WHEELER PA-C [address] [place] [address], [phone], [facility] 06/12/2020 10:03:51 12/25/2023 text/html ROS as noted in the HPI I am here for my skin check. One spot on left leg and one spot on left abdomen. DEXTER CARRASCO MD [address] [place] [address], [address], [facility] 12/25/2023 14:26:10 06/21/2024 text/html ROS as noted in the HPI Mole Location: Scalp Duration: Noticed it 1mo ago Previous tx: None Reports: Rough and scaly. Pt is picking at it. She wants it looked at bc she spent her entire childhood outside in the pool and Maternal grandfather had MM on the scalp. Pt picked it off twice and it came back. KADY LOPEZ, SALES AND LEASING CONSULTANT [address] [place] [address], [address], [place] [facility] 06/21/2024 10:43:45 OBGyn Episode No OBEpisode recorded.
--- OUTSIDE RECORDS SUMMARY | 2025-01-26 10:29 | XMS_ITS | Clinical Summary ---
Author Organization [facility] Phone Care Team Providers Care Yard Supervisor Cotton Gin Name Role Phone Unavailable Primary Care Provider [...] on file Sexual Orientation Not on file Last Filed Vital Signs Vital Sign Reading [...] of 2) 06/05/2019 COVID-19 Vaccine ( season) 2024 03/22/2021, 04/04/2020, 03/06/2020 Influenza Vaccine (#1) 2024 Breast Cancer Screening 05/19/2025 05/20/19 24, 05/20/2023, 05/16/2022, Additional history exists Meningococcal B Vaccine Aged Out No l onger eligible based on patient's age to complete this topic Insurance
[2025-01-26 10:37] LABS: C-Reactive Protein 10.6 mg/L (0-4)
[2025-01-26 10:45] LABS: T4 (Thyroxine) 8.7 ug/dl (5.53-11.0)
[2025-01-26 10:46] LABS: Free Thyroxine Index 3.0 ug/dL (5.93-13.13); Triiodothryronine (T3) Uptake 34 % (23.5-40.5)
[2025-01-26 10:59] LABS: Thyroid Stimulating Hormone 1.80 uIU/mL (0.465-4.68)
== END 2025-01-26 23:59 | disposition home or self-care (01) ==
LOC: LAB 09:26
PROVIDERS: PCP Internal Medicine Adolescent Medicine; Visit Provider Internal Medicine Adolescent Medicine
DX: M19.90 Unspecified osteoarthritis, unspecified site (principal)
CPT/HCPCS: 36415; 80053; 84436; 84443; 84479; 85025; 85651; 86140; 86225; 86235

== ENCOUNTER 2025-02-01 10:00 | Outpatient (CLI) | payer OTHER, SELFPAY ==
--- NOTE | 2025-02-01 | US_ITS ---
FINAL REPORT TECHNIQUE: Sonographic images of the abdomen were obtained in all four quadrants. CLINICAL HISTORY: ABD PAIN-- RT SIDE PAIN REOCCURING COMPARISON: None FINDINGS: LIVER: The liver is fatty infiltrated. No focal hepatic lesion or intrahepatic biliary dilatation. The portal vein is patent. GALLBLADDER: The gallbladder is surgically absent. The common duct measures 5 mm. This is within normal limits for age. PANCREAS: Unremarkable. RIGHT KIDNEY: 10.2 cm. No hydronephrosis, mass or stone. LEFT KIDNEY: 10.0 cm. No hydronephrosis, mass or stone. SPLEEN: 8.7 cm. No focal splenic lesion. AORTA/IVC: No abdominal aortic aneurysm. Visualized IVC within normal limits. OTHER: No ascites. IMPRESSION: Fatty liver. Reviewed, Interpreted and Dictated by Rose Metz MD Transcribed by Ai Saunders Authenticated and . [facility]
--- NOTE | 2025-02-01 10:02 | US_ITS ---
FINAL REPORT CLINICAL HISTORY: claudication,smoker,htn FINDINGS: ANKLE-BRACHIAL PRESSURE INDICES Pressure indices are as follows: RIGHT LOWER EXTREMITY: Ankle-brachial pressure index: 1.27 Comments: Normal LEFT LOWER EXTREMITY: Ankle-brachial pressure index: 1.15 Comments: Normal IMPRESSION: No evidence of significant obstructive peripheral vascular disease of the lower extremities Reviewed, Interpreted and Dictated by Rose Metz MD Transcribed by Melinda Cantor Authenticated and [facility]
--- OUTSIDE RECORDS SUMMARY | 2025-02-01 10:08 | XMS_ITS | Data Portability ---
Author Organization [facility]ILLIE CHRISTA [facility] Address [address] [place] [address] Care Team Providers Care Fuel Cell Builder Name Role Phone GILDA COSTA Primary Care Provider DEXTER CARRASCO Machine Zipper Trimmer Assessment Encounter Date Assessment Date Assessment LastModified by Organization Details LastModified Time 06/12/2020 06/12/2020 [facility] cervical [facility]. [facility] 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 [facility]. 05/08/20 M ild arthritic changes [...] UP DAK 2025 07:40A M YENNI LOPEZ LACTATION COORDINATOR Not available Not available Not available Lab None record ed. Referral None record ed. Procedures None record ed. Surgeries None record ed. Imaging None record ed. Medication Orders Pepcid AC 20 mg tablet 2019 020 [email or web address] [id number], [address] [place], [address], 08/03/2019 10:24:08 Patient TargetsNo targets recorded. Patient Instructions Encounter Date Encounter Id Patient Instructions Last Modified By Organization Details Last Modified Time 08/03/2019 [id number] hearing loss: ca re instructions [email or web address] Not available 08/03/2019 13:31:34 08/03/2019 [id number] 1. audiogram obtained- type A tymp, 10 [...] the next few months. 4. F/u prn [email or web address] Not available 08/03/2019 10:23:42 Reason for Referral None Reported. Results Created Date Observation Date Name Description Value Unit Range Abnormal Flag Note LastModifiedBy Organization Detail LastModifiedTime 08/04/19 20 08/03/2019 audio gram No observ ation record ed. BARCODE Not Available 2019 12:40:38 06/13/19 21 06/12/2020 XR, lumbo sacra l spine , 2 or 3 view, bendi ng only [place] [facility] [address] [facility] [place] [address] Marlin kitchen Name: MONIQUE Figueroa MELANIE kitchen [...] Henry MD on 06/13/19 11:15 AM [email or web address] [facility] [address], [address], 06/21/2020 11:27:52 Result Notes Documentation Provider Name and Address Organization Details Recorded Time Xr, Lumbosacral Spine, 2 Or 3 View, Bending Only : [address] [address] Patient Name: TEENA ROMAN Patient : 1970 [...] By: Johnson Henry MD ET HOOD MD [address] [place] [address], [phone], [facility] 06/21/2020 11:27:52 Problems No Known Problems Procedures Surgical History Date Name Laterality Status Provider Name and Address Organization Details Recorded Time 025 DAK - Destruction BN Lesions completed Melanie Duffy [facility] 06/21/2024 08:04:20 024 DAK - Destruction BN Lesions completed DEXTER CARRASCO MD [address] [place], [address], [facility] 12/25/2023 14:25:10 020 Tympanogram completed NINA FRAIRE, AUD [address] [place], [address], [facility] 08/03/2019 13:31:06 020 Audiogram completed NINA FRAIRE, AUD [address] [place], [address], [facility] 08/03/2019 13:31:05 020 Laryngoscopy Flex completed Eddie Eason [facility] 08/03/2019 10:08:05 018 Tympanogram completed MEAGHAN FERRERA, AUD [address] [place], [address], [facility] 08/18/2017 10:30:07 018 Audiogram completed MEAGHAN FERRERA, AUD [address] [place], [address], [facility] 08/18/2017 10:30:05 Unlisted px dentalvlr strux completed Angelique David [facility] 08/18/2017 10:17:29 Carpal Tunnel Surgery completed Melinda Jackson [facility] 06/12/2020 09:19:30 cholecystectomy completed Rosa Ventura [facility] 12/25/2023 07:50:52 Imaging Results [...] bromide 42 mcg (0.06 %) nasal spray [place] 2 sprays 3 times a day by [...] Updated DateTime 06/12/2020 157.48 cm 45.9 kg/m2 216030.6 8 g 77 /min 157/102 mm[Hg] Melinda Jackson [facility] 06/12/2020 09:18:44 Date Recorded Heart rate Body temperature Body height Body mass index (BMI) Body weight Systolic And Diastolic Provider Name and Address Organization Details Last Updated DateTime 0 65 /min 98.2 [degF] 157.48 cm 48.5 kg/m2 487858. 98 g 134/86 mm[Hg] Angelique David [facility] 0 09:01:12 Social History Question Answer Notes LastModified by [employer] Details LastModified Time Tobacco Smoking Status Current Every Day Smoker [facility]/12/[facility] 09:19:05 What Was The Date Of Your Most Recent Tobacco Screening? 12/25/2023 [email or web address] Information not available 12/25/2023 Has Tobacco Cessation Counseling Been Provided? No [email or web address] Information not available 08/18/2017 Sex: Female Functional Status Question Answer Note LastModified by [employer] Details LastModified Time What is your level of alcohol consumption? Occasional [email or web address] Information not available 08/18/2017 Mental Status None recorded. Family History Relationship Description Onset Age of this Age Resolved Age Notes LastModified by Organization Details LastModified Time Mother Disorder of thyroid gland [email or web address] Not available 08/18 10:16:19 Mother Hypertensive disorder [email or web address] Not available 08/18 10:16:33 Father Hypertensive disorder [email or web address] Not available 08/18 10:16:41 Father Family history of stroke [email or web address] Not available 08/18 10:16:59 Father Diabetes mellitus [email or web address] Not available 08/18 10:17:07 Maternal Grandfather Malignant melanoma [email or web address] Not available 12/24 07:49:53 Maternal Grandfather Malignant neoplasm of gallbladder [email or web address] Not available 07:50:06 Medical History Condition Response Kidney Stones N Hyperthyroidism N Heart Arrhythmia N Emphysema N Esophagus/swallowing troubles N Glaucoma N Depression N Lung Disease N Hypothyroidism N Anesthesia Complications N Anxiety Disorder N Varicose Veins Y Autoimmune disease N Arthritis N Hearing Loss N Acid Reflux (GERD) N Cancer N Stroke N Melanoma N Hoarseness N Alcohol Overuse/Alcohol Abuse N High Cholesterol Y Skin Cancer N Snoring problems N Liver Disease N Headaches N Fibromyalgia Y Kidney Disease N Allergies/Hayfever N Heart Problems N Squamous Cell Carcinoma N Mental handicap N Ear or Hearing Problems N Gallbladder Disease N Migraines N Thyroid Problems N Acne N Goiter N Skin Problems N Anemia N Immune System Disorder N Chest Pain N Stomach trouble N Heart Attack ([place]) N Ulcers N Other Skin Condition N [...] ICD10 Code Diagnosis IMO Codes Diagnosis Note [id number] FAINA DIAZ MD [facility] [address] [place] [address] 08/18/2017 09:42:16 08/19/2017 11:57:23 Chronic rhinitis 22762335 J31.0 Dysfunctio n of eustachian tube 69396821 H69.91 Otalgia of right ear 020 1799443 466650 H92.01 [id number] WILMA SEGURA [facility] [address] [place] [address] 08/18/2017 10:29:12 08/18/2017 10:42:02 Otalgia 75983445 H92.03 Dysfunctio n of eustachian tube 83920282 H69.92 Tinnitus of right ear 48 53768494 108 H93.11 Sensorineu ral hearing loss of bilateral ears 908180209 H90.3 [id number] RON MCKINLEY MD [facility] [address] [place] [address] 08/26/2017 09:03:36 08/27/2017 11:29:08 Sensorineural hearing loss of bilateral ears 201560597 H90.3 Hypertroph y of tonsils 28063687 J35.1 mild Dysfunctio n of left eustachian tube 9061207140 852445 H69.92 Temporoman dibular joint disorder 15038598 M26.609 Bilateral tinnitus 03321 99694 102 H93.13 Gastroesop hageal reflux disease without esophagitis 342011877 K21.9 [id number] KRISTA ROJAS III, MD [facility] [address] [facility] [place] [address] 08/03/2019 08:53:45 08/03/2019 10:58:53 Temporomandibular joint disorder 96515412 M26.609 - Hx of Dysfunctio n of left eustachian tube 3896263462 846840 H69.92 Sensorineu ral hearing loss of bilateral ears 286808521 H90.3 Bilateral tinnitus 37830 96692 102 H93.13 Hypertroph y of tonsils 51457778 J35.1 -Hx of mild Gastroesop hageal reflux disease without esophagitis 983568078 K21.9 - [place] ing of the pharyngeal mucosa Ear pressu re sensation 328800882 H93.8X9 Seasonal allergy 2337999 04 J30.2 [id number] WILMA PARSONS [facility] [address] [address] [facility] [place] [address] 08/03/2019 13:30:53 08/03/2019 13:31:59 Bilateral earache 261645443 H92.03 Sensorineu ral hearing loss of bilateral ears 619844504 H90.3 Bilateral tinnitus 08671 80991 102 H93.13 Dysfunctio n of bilateral eustachian tubes 2411572923 914479 H69.93 [id number] DONNELL WHEELER PA-C [facility] [address] [place] [address] 06/12/2020 09:09:12 06/14/2020 15:09:50 Lumbar spondylosis 378763265 M47.896 Spinal rickey nosis in cervical region 00330852 M48.02 [id number] DEXTER CARRASCO MD [facility] [address] [place] [address] 12/25/2023 07:34:12 12/25/2023 08:20:25 Benign neoplasm of skin 91226403 D23.72 - Monitor for color/shap e changes- Favor dark mole/dark lentigo on left thighLesio n is likely benign, rec'd watchful monitoring and reporting change to us Melanocyti c nevus of skin 140771607 D22.5 Benign lesion(s) assessed Solar lentiginosis 28178 2006 L81.4 Benign lesion(s) assessed Zinc and titanium SPF30+ sunscreen recommende d Seborrheic keratosis 394 218736 L82.1 Benign lesion(s) assessed- Recommend OTC AmlactinLe marcos on left flank bothers her but is not symptomati c, she desires removal with cryo Hemangioma of skin 66682 006 D18.01 Benign lesion(s) assessed [id number] KADY Blunt, CITY ASSESSOR DAK [address] [address] 06/21/2024 07:32:18 06/21/2024 08:17:08 Inflamed seborrheic keratosis 239699652 L82.0 L53.8 Patient reports she has been picking at this, very irritated and bothersome . Requests removal Counseled on benign nature. Pt elected to treat with liquid nitrogen due to painful irritation . May recur or persist after treatment. Discolorat ion or scarring is possible. Benign layton plasm of skin 99178467 D23.9 No change since last visit 6 [...] Edwards Member ID Guarantor Name 06/21/2024 1 [facility] [id number] Teena Roman [id number] Teena Roman 06/21/2024 2 [facility] [id number] Teena Roman [id number] Teena Roman Notes Date Note Type Note [...] her throat raw. KRISTA ROJAS III, MD [address] [place] [address], [address], [facility] 08/03/2019 10:24:03 06/12/2020 text/html Ms. Roman [...] or dropping things often. DONNELL WHEELER PA-C [address] [place] [address], [address], [facility] 06/12/2020 10:03:51 12/25/2023 text/html ROS as noted in the HPI I am here for my skin check. One spot on left leg and one spot on left abdomen. DEXTER CARRASCO MD [address] [place] [address], [address], [facility] 12/25/2023 14:26:10 06/21/2024 text/html ROS as [...] twice and it came back. KADY LOPEZ, CITY ASSESSOR [address] [place] [address], [address], [place] [facility] 06/21/2024 10:43:45 OBGyn Episode No OBEpisode recorded.
== END 2025-02-01 23:59 | disposition home or self-care (01) ==
LOC: RT 10:00
PROVIDERS: PCP Internal Medicine Adolescent Medicine; Visit Provider Internal Medicine Adolescent Medicine
DX: K76.0 Fatty (change of) liver, not elsewhere classified (principal); I73.9 Peripheral vascular disease, unspecified; F17.200 Nicotine dependence, unspecified, uncomplicated; I10 Essential (primary) hypertension; M79.604 Pain in right leg; M79.605 Pain in left leg; M79.10 Myalgia, unspecified site; R80.9 Proteinuria, unspecified
CPT/HCPCS: 76700; 93923